=== PATIENT | female | born 1955 | race Caucasian/White ===

== ENCOUNTER 2019-01-08 17:53 | Observation (INO) | payer OTHER ==
[~2019-01-08] VITALS: Ht 167.6 cm; Wt 124.3 kg
[2019-01-08 18:37] LABS: BILIRUBIN,URINE NEGATIVE (NEGATIVE); CLARITY,URINE VERY CLOUDY; COLOR,URINE YELLOW; GLUCOSE, URINE (UA) NEGATIVE (NEGATIVE); KETONES,URINE 4+ (NEGATIVE); LEUKOCYTE ESTERASE ,URINE 1+ (NEGATIVE); NITRITE,URINE NEGATIVE (NEGATIVE); PH,URINE 5 (5-9); PROTEIN,URINE 2+ (NEGATIVE); UROBILINOGEN,URINE NORMAL (NORMAL)
[2019-01-08 18:49] LABS: BACTERIA,URINE MODERATE /HPF
[2019-01-08 18:50] LABS: BASOPHILS % (AUTO) 0 % (0-10); EOSINOPHILS % (AUTO) 0 % (0-10); HEMATOCRIT 45 % (35-52); HEMOGLOBIN 15.2 G/DL (11.5-16.0); LYMPHOCYTES # (AUTO) 1.6 X 10^3 (1.0-4.0); LYMPHOCYTES % (AUTO) 9 % (12-44); MEAN CORPUSCULAR HEMOGLOBIN 30 PG (25-34); MEAN CORPUSCULAR HGB CONC 34 G/DL (32-36); MEAN CORPUSCULAR VOLUME 87 FL (80-99); MEAN PLATELET VOLUME 10.2 FL (7.4-10.4); MONOCYTES # (AUTO) 1.2 X 10^3 (0.0-1.0); MONOCYTES % (AUTO) 7 % (0-12); NEUTROPHILS # (AUTO) 14.5 X 10^3 (1.8-7.8); NEUTROPHILS % (AUTO) 84 % (42-75); PLATELET COUNT 259 10^3/uL (130-400); RED CELL DISTRIBUTION WIDTH 14.6 % (10.0-14.5); WHITE BLOOD COUNT 17.4 10^3/uL (4.3-11.0)
--- NOTE | 2019-01-08 19:02 | NUR ---
report from elin motley.
[2019-01-08 19:09] LABS: BAND NEUTROPHILS 0 %; BASOPHILS % (MANUAL) 0 %; EOSINOPHILS % (MANUAL) 0 %; LYMPHOCYTES % (MANUAL) 11 %; MONOCYTES % (MANUAL) 7 %; NEUTROPHILS % (MANUAL) 82 %; RBC MORPH NORMAL
[2019-01-08 19:12] LABS: ALANINE AMINOTRANSFERASE 19 U/L (0-55); ALBUMIN 4.6 GM/DL (3.2-4.5); ALKALINE PHOSPHATASE 84 U/L (40-136); AMYLASE 42 U/L (25-125); BUN/CREATININE RATIO 14; CALCIUM 10.2 MG/DL (8.5-10.1); CARBON DIOXIDE 24 MMOL/L (21-32); CHLORIDE 100 MMOL/L (98-107); CREATININE SERUM 0.78 MG/DL (0.60-1.30); GFR ESTIMATED > 60; GLUCOSE 130 MG/DL (70-105); LIPASE 48 U/L (8-78); POTASSIUM 3.5 MMOL/L (3.6-5.0); SODIUM 137 MMOL/L (135-145); TOTAL PROTEIN 8.4 GM/DL (6.4-8.2)
[2019-01-08] MEDS ORDERED: fentaNYL INJECTION 100 MCG/2 ML AMP IVP ONE ×2 (19:15→21:15)
[2019-01-08] MEDS ORDERED: NS IV 1000 ML 1,000 ML IV SCH (19:15)
--- NOTE | 2019-01-08 19:26 | NUR ---
pt alert gcs 15 and here with " ". pt c/o abd pain rating 9. denies n/v/d. denies dyspnea and no acute sighnsof dypnea noted. tele shows sr 96. pt gowned.
--- NOTE | 2019-01-08 19:26 | NUR ---
pt instructed npo.
[2019-01-08 19:27] VITALS: BP 160/89
--- NOTE | 2019-01-08 20:02 | Diagnostic Imaging Report ---
PROCEDURE: CT abdomen and pelvis without contrast. TECHNIQUE: Multiple contiguous axial images were obtained through the abdomen and pelvis without the use of intravenous contrast. Auto Exposure Controls were utilized during the CT exam to meet ALARA standards for radiation dose reduction. INDICATION: Right lower quadrant pain. FINDINGS: The lung bases are clear. Liver appears normal. Gallbladder and bile ducts are normal. The pancreas and spleen are normal. The adrenal glands are normal. The kidneys show a stone in the right renal pelvis measuring 15 mm with moderate hydronephrosis of the right kidney. There are a few small calcifications in the lower pole calyx of the right kidney. The right ureter is not dilated. The bladder is nondistended. The appendix is dilated measuring 1.5 cm. There is an appendicolith present. There is surrounding mesenteric edema. There is no evidence of free fluid or abscess. There is no free air. There is very little stool in the colon. There is diverticulosis of the sigmoid colon without diverticulitis. Stomach and small bowel are not distended. No bony lesions are seen. Advanced degenerative changes noted of the lower lumbosacral spine. IMPRESSION: 1. Findings are consistent with acute appendicitis with appendicolith and distended appendix with periappendiceal edema. No evidence of abscess or free air. 2. There is moderate hydronephrosis of the right kidney with a 15 mm stone in the UPJ. Dictated by: Dictated on workstation # [id number]
--- NOTE | 2019-01-08 20:20 | ED Abdominal Pain ---
General Chief Complaint: Abdominal/GI Problems Stated Complaint: ABD CRAMPING Nursing Triage Note: PT AMB TO TRIAGE WITH COMPLAINT OF RLQ ABD PAIN. STATE STARTED YESTERDAY WITH GAS PAINS AND PROGRESSED INTO PAIN. STATES SHE HAS HAD TROUBLE HAVING A BOWEL MOVEMENT Sepsis Screen: No Definite Risk Source of Information: Patient Exam Limitations: No Limitations History of Present Illness Date Seen by Provider: Jan 08, 2019 Time Seen by Provider: 18:37 Initial Comments 63 year old female who presents to the emergency room with complains of periu mbilical abdominal pain that radiates to her right lower quadrant that started yesterday evening. She denies fevers, nausea, vomiting, diarrhea, trouble urinating. Reports mild constipation. Timing/Duration: 12-24 Hours Severity/Quality: Sharp Location: Periumbilical Radiation: RLQ Activities at Onset: None Associated Symptoms: Denies Symptoms Allergies and Home Medications Allergies Coded Allergies: No Known Drug Allergies (Unverified , 01/08/19) Home Medications No Active Prescriptions or Reported Meds Patient Home Medication List Home Medication List Reviewed: Yes Review of Systems Review of Systems Constitutional: see HPI; No chills, No fever Gastrointestinal: See HPI, Abdominal Pain, Constipated; Denies Diarrhea, Denies Nausea, Denies Vomiting Genitourinary: See HPI; Denies Burning, Denies Discharge, Denies Frequency, Denies Pain, Denies Urgency All Other Systems Reviewed Negative Unless Noted: Yes Past Bqwleqd-Slmjoq-Lfpqta Hx Past Med/Social Hx: Reviewed Nursing Past Med/Soc Hx Patient Social History Alcohol Use: Occasionally Uses Recreational Drug Use: No Smoking Status: Never a Smoker Recent Foreign Travel: No Contact w/Someone Who Travel: No Recent Infectious Disease Expo: No Recent Hopitalizations: No Immunizations Up To Date Tetanus Booster (TDap): Unknown PED Vaccines UTD: Yes Seasonal Allergies Seasonal Allergies: No Past Medical History Surgeries: Yes (BILATERAL MASECTOMY, CARPAL TUNNEL, LEFT WRIST) Tonsillectomy Respiratory: No Cardiac: No 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 oz. 126.278348ub; BMI Method:Stated General Appearance: WD/WN, no apparent distress Respiratory: chest non-tender, lungs clear, normal breath sounds, no respiratory distress, no accessory muscle use Cardiovascular: normal peripheral pulses, regular rate, rhythm, no edema, no gallop, no JVD, no murmur Gastrointestinal: normal bowel sounds, soft, no organomegaly, no pulsatile mass, tenderness (right lower quadrant) Extremities: normal capillary refill Neurologic/Psychiatric: alert, normal mood/affect, oriented x 3 Skin: normal color, warm/dry Progress/Results/Core Measures Results/Orders Lab Results Laboratory Tests Test 01/08/19 18:27 01/08/19 18:44 Range/Units Urine Color YELLOW Urine Clarity VERY CLOUDY H Urine pH 5 5-9 Urine Specific [place] 1.020 1.016-1.022 Urine Protein 2+ H NEGATIVE Urine Glucose (UA) NEGATIVE NEGATIVE Urine Ketones 4+ H NEGATIVE Urine Nitrite NEGATIVE NEGATIVE Urine Bilirubin NEGATIVE NEGATIVE Urine Urobilinogen NORMAL NORMAL MG/DL Urine Leukocyte Esterase 1+ H NEGATIVE Urine RBC (Auto) 3+ H NEGATIVE Urine RBC 2-5 H /HPF Urine WBC 10-25 H /HPF Urine Squamous Epithelial Cells 10-25 H /HPF Urine Crystals NONE /LPF Urine Bacteria MODERATE H /HPF Urine Casts NONE /LPF Urine Mucus MODERATE H /LPF Urine Culture Indicated YES White Blood Count 17.4 H 4.3-11.0 10^3/uL Red Blood Count 5.16 4.35-5.85 10^6/uL Hemoglobin 15.2 11.5-16.0 G/DL Hematocrit 45 35-52 % Mean Corpuscular Volume 87 80-99 FL Mean Corpuscular Hemoglobin 30 25-34 PG Mean Corpuscular Hemoglobin Concent 34 32-36 G/DL Red Cell Distribution Width 14.6 H 10.0-14.5 % Platelet Count 259 130-400 10^3/uL Mean Platelet Volume 10.2 7.4-10.4 FL Neutrophils (%) (Auto) 84 H 42-75 % Lymphocytes (%) (Auto) 9 L 12-44 % Monocytes (%) (Auto) 7 0-12 % Eosinophils (%) (Auto) 0 0-10 % Basophils (%) (Auto) 0 0-10 % Neutrophils # (Auto) 14.5 H 1.8-7.8 X 10^3 Lymphocytes # (Auto) 1.6 1.0-4.0 X 10^3 Monocytes # (Auto) 1.2 H 0.0-1.0 X 10^3 Eosinophils # (Auto) 0.0 0.0-0.3 10^3/uL Basophils # (Auto) 0.0 0.0-0.1 10^3/uL Neutrophils % (Manual) 82 % Lymphocytes % (Manual) 11 % Monocytes % (Manual) 7 % Eosinophils % (Manual) 0 % Basophils % (Manual) 0 % Band Neutrophils 0 % Blood Morphology Comment NORMAL Sodium Level 137 135-145 MMOL/L Potassium Level 3.5 L 3.6-5.0 MMOL/L Chloride Level 100 98-107 MMOL/L Carbon Dioxide Level 24 21-32 MMOL/L Anion Gap 13 5-14 MMOL/L Blood Urea Nitrogen 11 7-18 MG/DL Creatinine 0.78 0.60-1.30 MG/DL Estimat Glomerular Filtration Rate > 60 BUN/Creatinine Ratio 14 Glucose Level 130 H 70-105 MG/DL Calcium Level 10.2 H 8.5-10.1 MG/DL Corrected Calcium 8.5-10.1 MG/DL Total Bilirubin 1.0 0.1-1.0 MG/DL Aspartate Amino Transf (AST/SGOT) 21 5-34 U/L Alanine Aminotransferase (ALT/SGPT) 19 0-55 U/L Alkaline Phosphatase 84 40-136 U/L Total Protein 8.4 H 6.4-8.2 GM/DL Albumin 4.6 H 3.2-4.5 GM/DL Amylase Level 42 25-125 U/L Lipase 48 8-78 U/L My Orders Orders - SHAUN LOYOLA Comprehensive Metabolic Panel (01/08/19 18:36) Lipase (01/08/19 18:36) Amylase (01/08/19 18:36) Ed Iv/Invasive Line Start (01/08/19 18:36) Cbc With Automated Diff (01/08/19 18:36) Manual Differential (01/08/19 18:44) Ns Iv 1000 Ml (Sodium Chloride 0.9%) (6/1/19 19:15) Fentanyl Injection (Sublimaze Injection (01/08/19 19:15) Ct Abdomen/Pelvis Wo (01/08/19 19:14) Medications Given in ED Current Medications Medications Dose Ordered Sig/Andrew Route Start Time Stop Time Status Last Admin Dose Admin Fentanyl Citrate 50 mcg ONCE ONCE IVP 01/08/19 19:15 01/08/19 19:16 DC 01/08/19 19:23 50 MCG Vital Signs/I&O 01/08/19 01/08/19 18:08 19:27 Temp 98.7 98.7 Pulse 102 100 Resp 20 16 B/P (MAP) 194/96 (128) 160/89 (112) Pulse Ox 97 97 O2 Delivery Room Air Room Air Blood Pressure Mean: 112 Progress Progress Note : Time: 20:15 Progress Note I have seen and evaluated the patient. I have informed her of her laboratory and imaging studies. The case was discussed with Dr. Villa at this time and he recommends admitting the patient and starting cippro/flagyl and plan for appendectomy tomorrow at 1030. The patient agrees with plan of care. 2027: Dr. Ceron was consulted at this time. Diagnostic Imaging Diagonstic Imaging: CT Plain Films/CT/US/NM/MRI: abdomen, pelvis Comments NAME: SHELLY SCHROEDER [employer] REC#: [id number] PHYSICIAN: SHAUN LOYOLA CC: ALEM LOYOLA ERIC D MD Page 2 of 2 RADIOLOGY REPORT [facility] [place] [place] CC: ALEM LOYOLA ERIC D MD Page 1 of 1 RADIOLOGY REPORT NAME: SHELLY SCHROEDER [employer] REC#: [id number] PT STATUS: REG ER : 1955 PHYSICIAN: SHAUN LOYOLA ADMIT DATE: 01/08/19/ER Signed Date of Exam: 01/08/19 CT ABDOMEN/PELVIS WO PROCEDURE: CT abdomen and pelvis without contrast. TECHNIQUE: Multiple contiguous axial images were obtained through the abdomen and pelvis without the use of intravenous contrast. Auto Exposure Controls were utilized during the CT exam to meet ALARA standards for radiation dose reduction. INDICATION: Right lower quadrant pain. FINDINGS: The lung bases are clear. Liver appears normal. Gallbladder and bile ducts are normal. The pancreas and spleen are normal. The adrenal glands are normal. The kidneys show a stone in the right renal pelvis measuring 15 mm with moderate hydronephrosis of the right kidney. There are a few small calcifications in the lower pole calyx of the right kidney. The right ureter is not dilated. The bladder is nondistended. The appendix is dilated measuring 1.5 cm. There is an appendicolith present. There is surrounding mesenteric edema. There is no evidence of free fluid or abscess. There is no free air. There is very little stool in the colon. There is diverticulosis of the sigmoid colon without diverticulitis. Stomach and small bowel are not distended. No bony lesions are seen. Advanced degenerative changes noted of the lower lumbosacral spine. IMPRESSION: 1. Findings are consistent with acute appendicitis with appendicolith and distended appendix with periappendiceal edema. No evidence of abscess or free air. 2. There is moderate hydronephrosis of the right kidney with a 15 mm stone in the UPJ. Dictated by: Dictated on workstation # [id number] Dict: 01/08/191953 Trans: 01/08/192003 Interpreted by: RAH BOND MD Electronically signed by: RAH BOND MD 01/08/192003 Reviewed: Reviewed by Me Departure Communication (Admissions) Time/Spoke to Admitting Phy: 20:15 Dr. Villa Time/Spoke to Consulting Phy: 20:28 Dr. Ceron Impression Primary Impression: Appendicitis Additional Impressions: Kidney stone Urinary tract infection Disposition: ADMITTED INPATIENT Condition: Stable/Unchanged Admissions Decision to Admit Reason: Admit from ER (General) Decision to Admit/Date: Jan 08, 2019 Time/Decision to Admit Time: 20:20 Departure-Patient Inst. Referrals: NO,LOCAL PHYSICIAN (PCP/Family) Primary Care Physician Scripts No Active Prescriptions or Reported Meds SHAUN LOYOLA Jan 08, 2019 20:20
[2019-01-08 20:27] VITALS: BP 167/89
--- NOTE | 2019-01-08 20:28 | NUR ---
pt remains alert gcs 15. remainsin the room. pt abd pain rating better rating 6. denies nausea and no v/d noted in er visit. dr in room talking about appy surgery tomorrow am 1030 and needs k stone surgery. no acute sighns of dyspnea noted. tele shows sr 85. bolus 3/4 completed. +
--- NOTE | 2019-01-08 20:57 | NUR ---
50 left in bolus. i will lulu off now. pt requests more pain meds. dr will order some.
--- NOTE | 2019-01-08 21:06 | NUR ---
i just called report to admit nurse matt.
--- NOTE | 2019-01-08 21:19 | NUR ---
i am taking pt to admit room now by cart. with.
[2019-01-08 21:30] VITALS: BP 172/89
--- NOTE | 2019-01-08 21:30 | NUR ---
SHELLY SCHROEDER admitted to room 406-1, with an admitting diagnosis of Appendicitis, kidney stones and UTI, on 01/08/19 from ER via WC, accompanied by ED STAFF AND .SHELLY SCHROEDER introduced to surroundings, call light, bed controls, phone, TV, temperature control, lights, meal times, smoking policy, visitor policy, side rail policy, bathrooms and showers. Patient Rights given to patient in the handbook. SHELLY SCHROEDER verbalizes understanding that [facility] is not responsible for the loss or damage to any personal effects or valuables that are kept in the patients possession during their hospitalization. pt care plan was discussed with pt SHELLY SCHROEDER verbalizes understanding of Interdisciplinary Patient Education. Patient and/or family were informed about the Rapid Response Team and its purpose.
[2019-01-08] MEDS ORDERED: ONDANSETRON 4 MG/2 ML (SDV) Z0FRAN IV PRN (23:00)
[2019-01-08] MEDS: NS IV 1000 ML 1,000 ML IV SCH (23:17)
[2019-01-08] MEDS: fentaNYL INJECTION 100 MCG/2 ML AMP IV PRN (23:18)
[2019-01-08 23:49] VITALS: BP 162/75
--- NOTE | 2019-01-08 23:57 | Progress Note-Pre Operative ---
Pre-Operative Progress Note H&P Reviewed The H&P was reviewed, patient examined and no changes noted. Date Seen by Provider: Jan 08, 2019 Time Seen by Provider: 11:30 Date H&P Reviewed: Jan 08, 2019 Time H&P Reviewed: 11:30 Pre-Operative Diagnosis: acute appendicitis POLLO JAMES MD Jan 08, 2019 23:57
[2019-01-09] VITALS (11 sets, daily range): BP systolic 119–151; BP diastolic 58–99
--- NOTE | 2019-01-09 01:00 | HISTORY AND PHYSICAL ---
DATE OF SERVICE: HISTORY OF PRESENT ILLNESS: The patient is a 63-year-old female who presented to the Emergency Department with a 1-day history of right lower quadrant abdominal pain. She initially thought that this was related to gas pain; however, over time persisted and worsened and became more localized. She does not report any fever nor chills as well as no nausea, no vomiting. A CT scan was performed, which did show an appendicolith as well as inflammation of the appendix consistent with an acute appendicitis. There was also right nephrolithiasis identified at the ureteropelvic junction with moderate hydronephrosis. She also does have a urinary tract infection. PAST MEDICAL HISTORY: Diabetes. PAST SURGICAL HISTORY: Bilateral mastectomy, hysterectomy, left carpal tunnel release. ALLERGIES: No known drug allergies. MEDICATIONS: None. SOCIAL HISTORY: Negative smoke, social alcohol. FAMILY HISTORY: Noncontributory. VITAL SIGNS: Temperature 98.7, blood pressure 194/96, pulse 102, respirations 20, pulse ox 97% on room air. REVIEW OF SYSTEMS: This is a well-nourished female, currently in no acute distress. She is not experiencing any shortness of breath or difficulty breathing. No chest pain, palpitations, diaphoresis. Intermittent episodes of nausea, no vomiting. Pain in the right lower abdominal quadrant, which was more generalized; however, became more localized towards the right lower abdominal quadrant at McBurney's point. No diarrhea, constipation, no red blood per rectum, no dark tarry stools. No fever, chills, no recent inadvertent weight loss. All other review of systems negative. PHYSICAL EXAMINATION: CHEST: Clear. Good breath sounds bilaterally. HEART: Regular, no murmurs. HEENT: No scleral icterus. NECK: No cervical lymphadenopathy. EXTREMITIES: No lower extremity edema. Negative Guy sign. ABDOMEN: Soft, nondistended. There is pain in the right lower abdominal quadrant at McBurney's point with voluntary guarding, no rebound. SKIN: Warm, dry. LABORATORY DATA: WBC 17.4, hemoglobin 15.2, hematocrit 45, platelets 259. Urinalysis, 1+ leukocyte esterase, moderate bacteria. ASSESSMENT AND PLAN: A 63-year-old female with acute appendicitis as well as a right nephrolithiasis and moderate hydronephrosis. We will admit her start her on IV hydration due to mild dehydration. We will also start her on antibiotics. We will also proceed with a laparoscopic appendectomy. Urology will also be consulted for the nephrolithiasis as well as hydronephrosis. We will also treat her urinary tract infection with antibiotics. Job ID: [id number] DocumentID: [id number] Dictated Date: 01/09/2019 00:07:23 Clinical Statistics Manager Date: 01/09/2019 00:59:37 Dictated By: POLLO JAMES MD MTDD
[2019-01-09] MEDS: fentaNYL INJECTION 100 MCG/2 ML AMP IV PRN ×7 (02:03→23:07)
[2019-01-09 04:54] LABS: BASOPHILS % (AUTO) 0 % (0-10); EOSINOPHILS % (AUTO) 0 % (0-10); HEMATOCRIT 40 % (35-52); HEMOGLOBIN 13.4 G/DL (11.5-16.0); LYMPHOCYTES # (AUTO) 1.2 X 10^3 (1.0-4.0); LYMPHOCYTES % (AUTO) 8 % (12-44); MEAN CORPUSCULAR HEMOGLOBIN 29 PG (25-34); MEAN CORPUSCULAR HGB CONC 34 G/DL (32-36); MEAN CORPUSCULAR VOLUME 87 FL (80-99); MEAN PLATELET VOLUME 10.5 FL (7.4-10.4); MONOCYTES # (AUTO) 1.2 X 10^3 (0.0-1.0); MONOCYTES % (AUTO) 8 % (0-12); NEUTROPHILS # (AUTO) 11.9 X 10^3 (1.8-7.8); NEUTROPHILS % (AUTO) 83 % (42-75); PLATELET COUNT 211 10^3/uL (130-400); RED CELL DISTRIBUTION WIDTH 14.7 % (10.0-14.5); WHITE BLOOD COUNT 14.3 10^3/uL (4.3-11.0)
[2019-01-09 05:15] LABS: ALANINE AMINOTRANSFERASE 13 U/L (0-55); ALBUMIN 3.8 GM/DL (3.2-4.5); ALKALINE PHOSPHATASE 68 U/L (40-136); BUN/CREATININE RATIO 14; CALCIUM 8.8 MG/DL (8.5-10.1); CARBON DIOXIDE 22 MMOL/L (21-32); CHLORIDE 103 MMOL/L (98-107); CREATININE SERUM 0.64 MG/DL (0.60-1.30); GFR ESTIMATED > 60; GLUCOSE 135 MG/DL (70-105); POTASSIUM 3.3 MMOL/L (3.6-5.0); SODIUM 137 MMOL/L (135-145); TOTAL PROTEIN 6.8 GM/DL (6.4-8.2)
[2019-01-09] MEDS: metroNIDAZOLE 500 MG/100 ML IVPB (PRE-MIX) IV SCH ×3 (05:22→21:45)
[2019-01-09] MEDS: CIPROFLOXACIN 400 MG/D5W 200 ML (PRE-MIX) IV SCH ×2 (08:40→19:54)
--- NOTE | 2019-01-09 09:25 | Diagnostic Imaging Report ---
Examination: AP supine abdomen Indication: Right ureteropelvic junction stone. Comparison: CT abdomen and pelvis performed on 01/08/2019. Findings: Nonobstructive bowel gas pattern. Scattered gas and stool is noted in the colon. No unusual stool burden. No evidence of pneumoperitoneum on this supine study. A 1.1 cm ovoid calcification is demonstrated in the expected region of the right collecting system, corresponding to findings on CT scan. No other abnormal abdominal calcifications are demonstrated. Surgical clips are demonstrated in the left pelvis. No evidence of organomegaly. Visualized lung bases are clear. Impression: Nonobstructive bowel gas pattern. Calcification in the region of the right renal pelvis, compatible with findings on CT scan of the right UPJ stone. Dictated by: Dictated on workstation # [id number]
[2019-01-09] MEDS ORDERED: BUP/EPI 0.5% 1:200,000 (SENSORCAINE) 30 ML VIAL ONE (10:02)
[2019-01-09] MEDS ORDERED: fentaNYL INJECTION 100 MCG/2 ML AMP ONE (10:04)
[2019-01-09] MEDS ORDERED: MIDAZOLAM 2 MG/2 ML (VERSED) VIAL ONE (10:05)
[2019-01-09] MEDS: LACTATED RINGERS 1,000 ML IV PRN ×2 (10:15→12:35)
--- NOTE | 2019-01-09 10:39 | CONSULTATION REPORT ---
DATE OF SERVICE: 01/09/2019 ATTENDING PHYSICIAN: Dr. Villa. SUMMARY: After reviewing the patient's record, the x-ray, interviewing her and examining her, this is a 63-year-old white lady who recently moved from [facility] about three years ago to [place], presented to the emergency room and was found to have acute appendicitis, but the CT also revealed a 1.5 cm stone in the right UPJ causing moderate hydronephrosis and few stones in the kidney as well. She has not had much flank pain, but she did have one time an episode of gross hematuria, which subsided spontaneously and never had a workup for it. REVIEW OF SYSTEMS: Related to the appendix. ALLERGIES: She has no known drug allergies. SOCIAL HISTORY: She is . No children. No smoking, no alcohol, no drugs. FAMILY HISTORY: Question father stones. PAST MEDICAL HISTORY: Breast cancer. She has been cleared for since 2004. PAST SURGICAL HISTORY: Surgery case, bilateral mastectomy followed by chemo, total abdominal hysterectomy with bilateral salpingo-oophorectomy, bilateral carpal tunnel release and an open reduction internal fixation with plate and screws for a left wrist fracture. PHYSICAL EXAMINATION: VITAL SIGNS: Per chart. GENERAL: Obese, in no acute distress. HEAD: Normocephalic. ENT: Unremarkable. NECK: Supple. No bruits. CHEST: Clear, nontender. HEART: Regular rate and rhythm. No murmur. ABDOMEN: Soft. No CVA tenderness. There is tenderness in the right lower quadrant at McBurney point. EXTREMITIES: Lower extremities, no edema or cyanosis. NEUROLOGIC: Grossly intact and oriented x3. LABORATORY DATA: Urinalysis shows pyuria and bacteriuria. White count is 17,000. IMPRESSION: 1. Acute appendicitis. 2. Right ureteropelvic junction stone with moderate hydronephrosis. 3. Right renal stones. PLAN: 1. Proceed with the appendectomy as planned. 2. Continue treating the urinary tract infection. 3. Whether the patient goes home today after surgery or tomorrow morning, we will see her tomorrow in my office at 1 p.m. We will schedule her for an ESWL on Thursday when the patient is going to be here. The plan and the procedure was fully explained to her and her with expectation, indication, risk and complications and stressing on the possible need for more than one ESWL. She was also offered to go to for the procedure or to have a percutaneous nephrolithotomy compared to the procedure here and give her pros and cons. She elected to go with ESWL on Thursday. Thank you for letting me participate in the care of this patient. Job ID: [id number] DocumentID: [id number] Dictated Date: 01/09/2019 09:10:21 Magician Helper Date: 01/09/2019 10:32:51 Dictated By: MARIBELL SEPULVEDA MD
[2019-01-09] MEDS ORDERED: SUCCINYLCHOLINE INJ 100 MG/5 ML SYR ONE (11:43)
[2019-01-09] MEDS ORDERED: proPOfol 200 MG/20 ML (DIPRIVAN) VIAL IV ONE (11:43)
[2019-01-09] MEDS ORDERED: LIDOCAINE PF 2% 5 ML (XYLOCAINE) VIAL ONE (11:43)
[2019-01-09] MEDS ORDERED: SEVOFLURANE (ULTANE) 15 ML INHAL SOLN ONE ×6 (11:43→13:13)
[2019-01-09] MEDS ORDERED: ROCURONIUM 10 MG/ML 5 ML SYRINGE IV ONE (11:43)
[2019-01-09] MEDS ORDERED: KETOROLAC 30 MG/ML VIAL ONE (11:58)
[2019-01-09] MEDS ORDERED: morphine INJ 10 MG/ML 1ML (SYR OR VIAL) ONE (11:58)
[2019-01-09] MEDS ORDERED: LACTATED RINGERS 1,000 ML IV PRN (12:40)
--- NOTE | 2019-01-09 13:18 | Progress Note-Post Operative ---
Post-Operative Progess Note Surgeon (s)/Fur Designer (s) Surgeon POLLO JAMES MD Fur Designer: abdon rome INSURANCE ACCOUNT SPECIALIST Pre-Operative Diagnosis acute appendicitis Post-Operative Diagnosis same, umbilical hernia Procedure & Operative Findings Date of Procedure 01/09/19 Procedure Performed/Findings laparoscopic appendectomy and umbilical hernia repair. Anesthesia Type GET Estimated Blood Loss Estimated blood loss (mL): minimal Specimens/Packing Specimens Removed appendix POLLO JAMES MD Jan 09, 2019 13:18
[2019-01-09] MEDS ORDERED: HYDR-34 PO (13:19)
--- NOTE | 2019-01-09 13:20 | Discharge Inst-Surgical ---
D/C Lap Instructions-ERIKA New, Converted, or Re-Newed RX: RX on Chart Follow Up Appt in 2 weeks Activity as tolerated No driving for 24 hours No [address] while on pain medications Incentive Spirometry use every 2 hours while awake Regular Diet Symptoms to Report: Fever over 101 degree F, Nausea/Vomiting Infection Signs and Symptoms to report: Increased redness, Foul odor of wound, Increased drainage Bathing instructions: May shower Operative Area Clean/Dry; Keep incision clean/dry If any problems/questions: Contact your physician or go to Emergency Room POLLO JAMES MD Jan 09, 2019 13:20
[2019-01-09] MEDS ORDERED: fentaNYL INJECTION 100 MCG/2 ML AMP IVP ONE (13:30)
[2019-01-09] MEDS ORDERED: morphine INJ 10 MG/ML 1ML (SYR OR VIAL) IVP ONE (13:30)
[2019-01-09] MEDS ORDERED: ONDANSETRON 4 MG/2 ML (SDV) Z0FRAN IVP PRN (13:30)
[2019-01-09] MEDS ORDERED: MEPERIDINE (DEMEROL) INJ 50 MG/ML IVP ONE (13:30)
[2019-01-09] MEDS: NS IV 1000 ML 1,000 ML IV SCH ×2 (23:53→23:54)
[2019-01-10 00:23] VITALS: BP 118/59
--- NOTE | 2019-01-10 00:39 | OPERATIVE REPORT ---
DATE OF SERVICE: 01/09/2019 PREOPERATIVE DIAGNOSIS: Acute appendicitis. POSTOPERATIVE DIAGNOSES: Acute appendicitis with no perforation, incarcerated umbilical hernia with omentum within the hernia sac. PROCEDURE: Laparoscopic appendectomy and repair of incarcerated umbilical hernia laparoscopically primarily. SURGEON: Pollo James MD RESEARCH ASSOCIATE QUALITY CONTROL QC: Ricky Red APRN. ANESTHESIA: General endotracheal. ESTIMATED BLOOD LOSS: Minimal. FINDINGS: As above in the postop. DISPOSITION: The patient tolerated the procedure well. INDICATIONS: The patient is a 63-year-old female who presented with more generalized abdominal pain, which became more localized in the right lower abdominal quadrant yesterday. She also reports some mild nausea; however, no vomiting. A CT scan was performed, which did show an appendicolith as well as edema of the appendix consistent with acute appendicitis. DESCRIPTION OF PROCEDURE: The patient was brought to the operating room, laid supine on the table. After adequate IV pain and sedative medications and general endotracheal intubation, the abdomen was prepped and draped in standard surgical fashion. A 0.5% Marcaine with epinephrine was used to anesthetize the overlying skin in the left upper abdominal quadrant and a transverse skin incision made using a 15 blade. An 0 silk suture was applied to the medial aspect of the incision for retraction and a Veress needle inserted with a low opening pressure of 0 mmHg. The abdomen was then insufflated to 15 mmHg pressure. The Veress needle removed and a 5 mm Xcel trocar placed followed by a 5 mm 45 degree angle laparoscope visualizing the peritoneal cavity. A 4-quadrant abdominal exploration was performed. There was an incarcerated umbilical hernia with omentum within the hernia sac. There were also pelvic adhesions from her previous hysterectomy. Upon further inspection, there was a retrocecal appendix, which was inflamed; however, no perforation. A 5 mm suprapubic port was placed under direct visualization after the skin and peritoneal lining were anesthetized using 0.5% Marcaine with epinephrine and a transverse skin incision made using 15 blade. The omentum was then dissected out the hernia sac with blunt dissection using a grasper. Through the hernia opening, a 10 mm port was placed. The patient was then placed in Trendelenburg position as well as plane right side up, left side down. The terminal ileum as well as the cecum were identified and retracted anteriorly. The appendix was retrocecal. The mesenteric and omental adhesions were then taken down using blunt dissection. The appendix was then retracted anteriorly and then adherent tissue was taken down using blunt dissection as well as electrocautery on the hook instrument. Once the appendix was dissected out, a window was created between the mesoappendix and the cecum using a [place] dissector. The appendix was then stapled and transected at the cecal base using a LEATHA 45 mm stapler with a 2.5 mm thickness load. The mesoappendix was then stapled and transected with the same stapler with a 2.0 mm thickness reload. The appendix was removed in two different parts using an EndoCatch bag. The area was then copiously irrigated and suctioned out. We then proceeded with repair of the umbilical hernia. The hernia sac was dissected out using electrocautery on the hook instrument. Using a Martin-Kaci device and a series of interrupted 3-0 Prolene sutures, a line of sutures were placed transversely closing the peritoneal lining as well as the fascia. Good hemostasis was observed. The abdomen was desufflated and remaining ports removed. All skin incisions were closed using 4-0 Monocryl running subcuticular sutures. Wounds were then cleaned and covered with Dermabond. The patient tolerated the procedure well. We will start IV normal pain medication as well as a clear liquid diet. Once she is tolerating clears, has good pain control with oral pain medications, and is ambulating well, we will discharge her home. We will have followup in the office in approximately two weeks and she will be instructed to do no heavy lifting or exertion for the next two weeks. Job ID: [id number] DocumentID: [id number] Dictated Date: 01/09/2019 13:34:12 Dermatology Teacher Date: 01/10/2019 00:38:42 Dictated By: POLLO JAMES MD
[2019-01-10] MEDS: fentaNYL INJECTION 100 MCG/2 ML AMP IV PRN ×3 (02:47→08:08)
[2019-01-10 04:40] VITALS: BP 111/69
[2019-01-10] MEDS: metroNIDAZOLE 500 MG/100 ML IVPB (PRE-MIX) IV SCH (05:36)
[2019-01-10 08:00] VITALS: BP 117/67
[2019-01-10] MEDS: CIPROFLOXACIN 400 MG/D5W 200 ML (PRE-MIX) IV SCH (08:08)
--- NOTE | 2019-01-10 09:18 | NUR ---
PATIENT VERIFIED SHE WAS NOT TAKING ANY MEDICATION PRESCRIPTION OR OTC PRIOR TO ADMISSION.
--- NOTE | 2019-01-10 10:47 | Anesthesia-General Post-Op ---
General Patient Condition Mental Status/LOC: Same as Preop Cardiovascular: Satisfactory Nausea/Vomiting: Absent Respiratory: Satisfactory Pain: Controlled Complications: Absent Post Op Complications Complications None Follow Up Care/Instructions Patient Instructions None needed. Anesthesia/Patient Condition Patient Condition Patient is doing well, no complaints, stable vital signs, no apparent adverse anesthesia problems. No complications reported per nursing. TORITO LOPEZ CRNA Jan 10, 2019 10:47
[2019-01-10 11:42] VITALS: BP 117/67
[2019-01-10] MEDS ORDERED: SULF1TAB35 PO (15:21)
[2019-01-11] MEDS ORDERED: TAMS0.4C98 PO (09:49)
== END 2019-01-10 11:00 | disposition home or self-care (01) ==
LOC: ER 17:55 → 4TH 20:24
PROVIDERS: ADMIT Surgery; ATTEND Surgery
DX: K35.80 Unspecified acute appendicitis (principal); K42.0 Umbilical hernia with obstruction, without gangrene; N13.6 Pyonephrosis; E86.0 Dehydration; N20.0 Calculus of kidney; E11.9 Type 2 diabetes mellitus without complications; Z85.3 Personal history of malignant neoplasm of breast; Z90.13 Acquired absence of bilateral breasts and nipples
CPT/HCPCS: 36415; 74018; 74176; 80053; 81000; 82150; 83690; 85007; 85025; 85027; 87081; 87088; 94664; 94760; 96374; 96376

== ENCOUNTER 2019-01-10 11:17 | Outpatient (CLI) | payer OTHER ==
[~2019-01-10] VITALS: Ht 167.6 cm; Wt 124.3 kg
[~2019-01-10 11:17] MED LIST: HYDR-34 PO
[2019-01-10] MEDS ORDERED: SULF1TAB35 PO (15:21)
[2019-01-11] MEDS ORDERED: TAMS0.4C98 PO (09:49)
== END 2019-01-10 15:33 | disposition home or self-care (01) ==
LOC: PREOP 11:17
PROVIDERS: ATTEND Urology
DX: Z01.818 Encounter for other preprocedural examination (principal)

== ENCOUNTER 2019-01-11 06:47 | Day surgery (SDC) | payer OTHER ==
[2019-01-11] VITALS (9 sets, daily range): BP systolic 134–166; BP diastolic 73–97
[~2019-01-11] VITALS: Ht 167.6 cm; Wt 124.3 kg
[~2019-01-11 06:47] MED LIST changes: +SULF1TAB35 PO
[2019-01-11] MEDS ORDERED: LACTATED RINGERS 1,000 ML IV PRN (07:51)
[2019-01-11] MEDS ORDERED: CATHETER FLUSH 10 ML SYR IV PRN (08:00)
[2019-01-11] MEDS ORDERED: cefTRIAXone FOR IV USE 1,000 MG in WATER (STERILE) FOR INJECTION 10 ML IV ONE (08:00)
--- NOTE | 2019-01-11 08:07 | Progress Note-Pre Operative ---
Pre-Operative Progress Note H&P Reviewed The H&P was reviewed, patient examined and no changes noted. Date Seen by Provider: Jan 11, 2019 Time Seen by Provider: 08:07 Date H&P Reviewed: Jan 11, 2019 Time H&P Reviewed: 08:07 Pre-Operative Diagnosis: RT RENAL STONE MARIBELL SEPULVEDA MD Jan 11, 2019 08:07
[2019-01-11] MEDS ORDERED: MIDAZOLAM 2 MG/2 ML (VERSED) VIAL ONE (08:15)
--- NOTE | 2019-01-11 08:15 | Progress Note-Post Operative ---
Post-Operative Progess Note Surgeon (s)/Rn Or Lpn (s) Surgeon MARIBELL SEPULVEDA MD Rn Or Lpn: NONE Pre-Operative Diagnosis RT RENAL STONE Post-Operative Diagnosis SAME Procedure & Operative Findings Date of Procedure 01/11/19 Procedure Performed/Findings RT ESWL Anesthesia Type GENERAL Estimated Blood Loss Estimated blood loss (mL): NONE Specimens/Packing Specimens Removed NONE Packing: NONE MARIBELL SEPULVEDA MD Jan 11, 2019 08:15
[2019-01-11] MEDS ORDERED: fentaNYL INJECTION 100 MCG/2 ML AMP ONE (08:17)
--- NOTE | 2019-01-11 08:18 | Discharge Inst-Urology ---
Discharge Inst-Urology Discharge Medications New, Converted, or Re-newed RX: RX on Chart Patient Instructions/Follow Up Plan Please make appointment to been seen in office Wednesday 01/24. KUB prior to it KUB on way home Post ESWL instructions Increase oral fluids for 48 hours and then as needed. Diet and Activity as tolerated. If questions or concerns contact your physician Or seek help at emergency department. MARIBELL SEPULVEDA MD Jan 11, 2019 08:18
--- NOTE | 2019-01-11 08:51 | Diagnostic Imaging Report ---
INDICATION: Nephrolithiasis. TECHNIQUE: 2 supine view of the abdomen 8:03 AM CORRELATION STUDY: 01/09/2019 FINDINGS: A 15 mm stone projecting over the right renal silhouette appears unchanged. A few additional punctate calcifications over the left renal silhouette. Clips within the left hemipelvis. Bowel gas pattern unremarkable with moderate severity fecal retention. IMPRESSION: 1. No appreciable change of a stone projected over the right renal silhouette with additional smaller punctate calcifications. Dictated by: Dictated on workstation # [id number]
[2019-01-11] MEDS ORDERED: FUROSEMIDE 40 MG/4 ML INJ (LASIX) ONE (09:02)
[2019-01-11] MEDS ORDERED: KETOROLAC 30 MG/ML VIAL ONE (09:02)
[2019-01-11] MEDS ORDERED: SEVOFLURANE (ULTANE) 15 ML INHAL SOLN ONE ×4 (09:02→09:03)
[2019-01-11] MEDS ORDERED: LIDOCAINE PF 2% 5 ML (XYLOCAINE) VIAL ONE (09:03)
[2019-01-11] MEDS ORDERED: ONDANSETRON 4 MG/2 ML (SDV) Z0FRAN ONE (09:03)
[2019-01-11] MEDS ORDERED: proPOfol 200 MG/20 ML (DIPRIVAN) VIAL IV ONE (09:03)
[2019-01-11] MEDS ORDERED: ONDANSETRON 4 MG/2 ML (SDV) Z0FRAN IVP PRN (09:30)
[2019-01-11] MEDS ORDERED: PROMETHAZINE INJ 25 MG/ML (PHENERGAN) AMP IVP ONE (09:30)
[2019-01-11] MEDS ORDERED: morphine INJ 10 MG/ML 1ML (SYR OR VIAL) IVP ONE (09:30)
[2019-01-11] MEDS ORDERED: TAMS0.4C98 PO (09:49)
--- NOTE | 2019-01-11 11:55 | Diagnostic Imaging Report ---
INDICATION: Post extracorporeal shockwave lithotripsy. TECHNIQUE: 2 supine view of the abdomen 10:21 AM CORRELATION STUDY: 01/11/2019 FINDINGS: The previously demonstrated approximately 15 mm stone over the right renal pelvis now appears fragmented and has changed position. There are 2 adjacent more prominent calcifications over the right L3 transverse process region. Largest at approximately 9 mm in size. Calcifications in the right hemipelvis appear unchanged. Small calcifications projecting over the left kidney, stable. Vascular clips left hemipelvis. IMPRESSION: 1. Interval fragmentation of the previously demonstrated right renal pelvis stone. These appear to be largely at the level of the proximal right ureter. Dictated by: Dictated on workstation # [id number]
--- NOTE | 2019-01-11 14:31 | Anesthesia-General Post-Op ---
General Patient Condition Mental Status/LOC: Same as Preop Cardiovascular: Satisfactory Nausea/Vomiting: Absent Respiratory: Satisfactory Pain: Controlled Complications: Absent Post Op Complications Complications None Follow Up Care/Instructions Patient Instructions None needed. Anesthesia/Patient Condition Patient Condition Patient is doing well, no complaints, stable vital signs, no apparent adverse anesthesia problems. No complications reported per nursing. D/C home per [facility] Criteria: Yes ALFRED PRESTON CRNA Jan 11, 2019 14:31
--- NOTE | 2019-01-11 17:25 | OPERATIVE REPORT ---
DATE OF SERVICE: 01/11/2019 PREOPERATIVE DIAGNOSIS: Right renal stone. POSTOPERATIVE DIAGNOSIS: Right renal stone. OPERATION PERFORMED: Right ESWL. SURGEON: MARIBELL SEPULVEDA MD ANESTHESIA: General. COMPLICATIONS: None. DESCRIPTION OF PROCEDURE: Under satisfactory general anesthesia, the patient in supine position on the ESWL table. The right renal stone was localized. Shocks were delivered at kV of 4. Total of 3000 shocks completely fragmented stone that was hard to be visualized. The patient received 30 mg of Toradol and 40 mg of Lasix at the end of the procedure. She tolerated the procedure and anesthesia well and was sent to recovery room in stable condition. Job ID: [id number] DocumentID: [id number] Dictated Date: 01/11/2019 11:26:19 Job Service Consultant Date: 01/11/2019 17:24:16 Dictated By: MARIBELL SEPULVEDA MD
== END 2019-01-11 11:00 | disposition home or self-care (01) ==
LOC: SDC 06:47
PROVIDERS: ATTEND Urology
DX: N20.0 Calculus of kidney (principal); E11.9 Type 2 diabetes mellitus without complications; E66.01 Morbid (severe) obesity due to excess calories; Z68.41 Body mass index [BMI] 40.0-44.9, adult; Z85.3 Personal history of malignant neoplasm of breast; Z90.10 Acquired absence of unspecified breast and nipple; Z92.21 Personal history of antineoplastic chemotherapy
CPT/HCPCS: 74018; 87081

== ENCOUNTER → 2019-01-24 | Outpatient (CLI) | payer OTHER ==
[~2019-01-24] MED LIST changes: +TAMS0.4C98 PO
--- NOTE | 2019-01-24 14:30 | Diagnostic Imaging Report ---
INDICATION: Right renal stone post lithotripsy. TIME OF EXAM: 12:45 p.m. Correlation is made with prior study from 01/11/2019. FINDINGS: Bowel gas pattern is unremarkable. No definite radiopaque urinary tract calculi are identified. No definite calculi along the course of the ureters is seen. Pelvic calcifications are stable. IMPRESSION: No definite radiopaque urinary tract calculi are identified. Dictated by: Dictated on workstation # [id number]
== END ==
LOC: RAD 12:29
PROVIDERS: ATTEND Urology
DX: N20.0 Calculus of kidney (principal); Z98.890 Other specified postprocedural states
CPT/HCPCS: 74018

== ENCOUNTER → 2019-04-13 | Outpatient (CLI) | payer OTHER ==
[~2019-04-13] VITALS: Ht 167.6 cm; Wt 117.0 kg
[~2019-04-13] MED LIST changes: +LISI2.5T PO
== END | disposition home or self-care (01) ==
LOC: PREOP 04-08 05:41
PROVIDERS: ATTEND Surgery
DX: Z01.818 Encounter for other preprocedural examination (principal)

== ENCOUNTER → 2019-04-15 | Day surgery (SDC) | payer OTHER ==
[~2019-04-15] VITALS: Ht 167.6 cm; Wt 117.0 kg
[2019-04-15] VITALS (11 sets, daily range): BP systolic 153–198; BP diastolic 66–121
[~2019-04-15] MED LIST changes: +ACETAMINOPHEN 325 MG TABLET PO PRN; +HYDROcodone/APAP 5 MG/325 MG (LORTAB) TAB PO PRN; +LIDOCAINE JELLY 2% 6 ML SYRINGE MM PRN; +LIDOCAINE JELLY 2% 6 ML SYRINGE ONE; +MIDAZOLAM 2 MG/2 ML (VERSED) VIAL IVP ONE; +MIDAZOLAM 2 MG/2 ML (VERSED) VIAL ONE; +NS IV 500 ML 500 ML IV PRN; +NS IV 500 ML 500 ML ONE; +ONDANSETRON 4 MG/2 ML (SDV) Z0FRAN IVP PRN; +fentaNYL INJECTION 100 MCG/2 ML AMP IVP ONE; +fentaNYL INJECTION 100 MCG/2 ML AMP ONE; +morphine INJ 10 MG/ML 1ML (SYR OR VIAL) IVP PRN
--- NOTE | 2019-04-15 11:33 | Conscious Sedation/ASA ---
Conscious Sedation Pre-Proced Time 11:30 ASA Score 2 For ASA 3 and 4: Consider anesthesia and medical clearance. Also, for patients with a history of failed moderate sedation consider anesthesia. Airway Lungs Heart ASA score ASA 1: a normal healthy patient ASA 2: a patient with a mild systemic disease (mid diabetes, controlled hypertension, obesity ASA 3: a patient with a severe systemic disease that limits activity (angina, COPD, prior Myocardial infarction) ASA 4: a patient with an incapacitating disease that is a constant threat to life (CHF, renal failure) ASA 5: a moribund patient not expected to survive 24 hrs. (ruptured aneurysm) ASA 6: a declared brain- patient whose organs are being harvested. For emergent operations, add the letter E after the classification Mallampati Classification Grade 2 Sedation Plan Analgesia, Amnesia, Plan communicated to team members, Discussed options with patient/fam, Discussed risks with patient/fam The patient is an appropriate candidate to undergo the planned procedure, sedation, and anesthesia. The patient immediately re-assessed prior to indication. POLLO JAMES MD Apr 15, 2019 11:33
--- NOTE | 2019-04-15 11:34 | Progress Note-Pre Operative ---
Pre-Operative Progress Note H&P Reviewed The H&P was reviewed, patient examined and no changes noted. Date Seen by Provider: Apr 15, 2019 Time Seen by Provider: 11:30 Date H&P Reviewed: Apr 15, 2019 Time H&P Reviewed: 11:30 Pre-Operative Diagnosis: screening o POLLO JAMES MD Apr 15, 2019 11:34
--- NOTE | 2019-04-15 11:35 | Discharge Inst-Surgical ---
D/C Lap Instructions-ERIKA Follow Up Activity as tolerated High Fiber Diet 25g or more per day Avoid Alcohol, Caffeine, Spicy [place] and Acid foods. Drink 64 fluid oz or more of fluids per day. Symptoms to Report: Fever over 101 degree F, Nausea/Vomiting If any problems/questions: Contact your physician or go to Emergency Room POLLO JAMES MD Apr 15, 2019 11:35
--- NOTE | 2019-04-15 13:36 | Progress Note-Post Operative ---
Post-Operative Progess Note Surgeon (s)/Metal Reed Tuner (s) Surgeon POLLO JAMES MD Metal Reed Tuner: none Pre-Operative Diagnosis screening colo Post-Operative Diagnosis mild chronic stage 2 ext and int hemorrhoids, mod sigmoid diverticulosis. Procedure & Operative Findings Date of Procedure 04/15/19 Procedure Performed/Findings Colonoscopy. Anesthesia Type cs Estimated Blood Loss Estimated blood loss (mL): minimal Specimens/Packing Specimens Removed none POLLO JAMES MD Apr 15, 2019 13:35
--- NOTE | 2019-04-15 15:19 | OPERATIVE REPORT ---
DATE OF SERVICE: 04/15/2019 PRIMARY CARE PHYSICIAN: Dr. Renee Whitehead. PREOPERATIVE DIAGNOSIS: Screening colonoscopy. POSTOPERATIVE DIAGNOSES: Mild chronic stage II external and internal hemorrhoids, moderate sigmoid diverticulosis. PROCEDURE PERFORMED: Colonoscopy. SURGEON: Pollo James MD. ANESTHESIA: Conscious sedation. ESTIMATED BLOOD LOSS: Minimal. FINDINGS: Mild chronic stage II external and internal hemorrhoids, moderate sigmoid diverticulosis. DISPOSITION: The patient tolerated the procedure well. INDICATIONS: The patient is a 63-year-old female, known to us. We had initially seen her in 01/2019, with generalized abdominal pain and more localized pain in the right lower abdominal quadrant. A CT scan was performed, which did show an appendicolith in the appendix and edema of the appendix consistent with acute appendicitis. She underwent an appendectomy on 01/09/2019. Her last colonoscopy was in 1996. She is in need of a followup colonoscopy. She states that she is otherwise doing well, does not report any diarrhea nor constipation as well as no red blood per rectum nor any dark tarry stools. DESCRIPTION OF PROCEDURE: The patient was brought to endoscopy suite, laid in the left lateral decubitus position. After adequate IV pain and sedative medications and conscious sedation anesthesia, a digital rectal examination was performed. Mild chronic stage II external and internal hemorrhoids were identified, which were not actively edematous nor inflamed and no bleeding. Normal sphincter tone was felt and there were no palpable masses. The endoscope was then intubated to the anus and rectum gently insufflated. The endoscope was then advanced through the valves of Kay of the rectum with no polyps or any neoplasms identified. Through the sigmoid colon, mild to moderate sigmoid diverticulosis identified. There were no mucosal inflammatory changes to indicate any active diverticulitis. The endoscope was then advanced to the remainder of the descending, transverse and ascending colon to the cecum. These segments were normal. There were no polyps or any neoplasms identified throughout the colon or rectum. The endoscope was then slowly withdrawn while taking a second look and suctioning of residual air with no additional findings. The patient tolerated the procedure well. We will recommend medical management with a high fiber diet with at least 25 grams of fiber daily as well as a significant amount of water to promote soft stools on a daily basis. She does not need another colonoscopy for another 10 years. Job ID: [id number] DocumentID: [id number] Dictated Date: 04/15/2019 13:24:51 Sales Technician Home Theater Date: 04/15/2019 15:17:50 Dictated By: POLLO JAMES MD
== END | disposition home or self-care (01) ==
LOC: ENDO 11:11
PROVIDERS: ATTEND Surgery
DX: Z12.11 Encounter for screening for malignant neoplasm of colon (principal); K64.1 Second degree hemorrhoids; K64.8 Other hemorrhoids; K57.30 Diverticulosis of large intestine without perforation or abscess without bleeding; K58.9 Irritable bowel syndrome, unspecified; C50.919 Malignant neoplasm of unspecified site of unspecified female breast; Z87.891 Personal history of nicotine dependence; Z79.899 Other long term (current) drug therapy; Z80.3 Family history of malignant neoplasm of breast; Z80.0 Family history of malignant neoplasm of digestive organs; Z82.49 Family history of ischemic heart disease and other diseases of the circulatory system; Z83.3 Family history of diabetes mellitus; Z80.42 Family history of malignant neoplasm of prostate
CPT/HCPCS: 82962

== ENCOUNTER 2019-06-22 16:50 | Inpatient (IN) | payer OTHER ==
[~2019-06-22] VITALS: Ht 167.6 cm; Wt 117.0 kg
[~2019-06-22 16:50] MED LIST changes: -ACETAMINOPHEN 325 MG TABLET PO PRN; -HYDROcodone/APAP 5 MG/325 MG (LORTAB) TAB PO PRN; -LIDOCAINE JELLY 2% 6 ML SYRINGE MM PRN; -LIDOCAINE JELLY 2% 6 ML SYRINGE ONE; -MIDAZOLAM 2 MG/2 ML (VERSED) VIAL IVP ONE; -MIDAZOLAM 2 MG/2 ML (VERSED) VIAL ONE; -NS IV 500 ML 500 ML IV PRN; -NS IV 500 ML 500 ML ONE; -ONDANSETRON 4 MG/2 ML (SDV) Z0FRAN IVP PRN; -fentaNYL INJECTION 100 MCG/2 ML AMP IVP ONE; -fentaNYL INJECTION 100 MCG/2 ML AMP ONE; -morphine INJ 10 MG/ML 1ML (SYR OR VIAL) IVP PRN
--- NOTE | 2019-06-22 17:00 | NUR ---
AND THIS NURSE STOOD THIS PATIENT AT BEDSIDE PATIENT REPORTS THAT DIZZINESS WORSE FELT LIKE SHE COULD NOT STAND ANY LONGER PLACED BACK IN BED.
[2019-06-22 17:08] LABS: BASOPHILS % (AUTO) 0 % (0-10); EOSINOPHILS # (AUTO) 0.1 10^3/uL (0.0-0.3); EOSINOPHILS % (AUTO) 1 % (0-10); HEMATOCRIT 43 % (35-52); HEMOGLOBIN 14.2 G/DL (11.5-16.0); LYMPHOCYTES # (AUTO) 1.4 X 10^3 (1.0-4.0); LYMPHOCYTES % (AUTO) 16 % (12-44); MEAN CORPUSCULAR HEMOGLOBIN 29 PG (25-34); MEAN CORPUSCULAR HGB CONC 33 G/DL (32-36); MEAN CORPUSCULAR VOLUME 88 FL (80-99); MEAN PLATELET VOLUME 9.9 FL (7.4-10.4); MONOCYTES # (AUTO) 0.6 X 10^3 (0.0-1.0); MONOCYTES % (AUTO) 6 % (0-12); NEUTROPHILS # (AUTO) 6.8 X 10^3 (1.8-7.8); NEUTROPHILS % (AUTO) 77 % (42-75); PLATELET COUNT 238 10^3/uL (130-400); RED CELL DISTRIBUTION WIDTH 14.6 % (10.0-14.5); WHITE BLOOD COUNT 8.8 10^3/uL (4.3-11.0)
--- NOTE | 2019-06-22 17:12 | NUR ---
TO CT PER CART ACCOMPIED BY [facility].
[2019-06-22 17:32] LABS: FIBRIN DEGRADATION PRODUCTS <= 0.27 UG/ML (0.00-0.49); PARTIAL THROMBOPLASTIN TIME 30 SEC (24-35); PROTHROMBIN TIME PATIENT 13.9 SEC (12.2-14.7)
--- NOTE | 2019-06-22 17:35 | Diagnostic Imaging Report ---
PROCEDURE: CT head wo r/o stroke. TECHNIQUE: Multiple contiguous axial images were obtained through the brain without the use of intravenous contrast. Auto Exposure Controls were utilized during the CT exam to meet ALARA standards for radiation dose reduction. INDICATION: Stroke alert. Left-sided weakness. Dizziness. COMPARISON: None. FINDINGS: The ventricles and cortical sulci are age-appropriate. There is no midline shift or mass-effect. No acute intracranial hemorrhage is seen. There is no CT evidence of acute territorial ischemia. No focal masses or collections are present. The calvarium is intact. The visualized paranasal sinuses are clear. IMPRESSION: No hemorrhage or focal intra-axial mass. No CT evidence of large acute territorial ischemia. Dictated by: Dictated on workstation # [id number]
--- NOTE | 2019-06-22 17:36 | NUR ---
BACK FROM CT.
[2019-06-22 17:37] LABS: ALANINE AMINOTRANSFERASE 16 U/L (0-55); ALBUMIN 4.8 GM/DL (3.2-4.5); ALKALINE PHOSPHATASE 98 U/L (40-136); BILIRUBIN,TOTAL 0.5 MG/DL (0.1-1.0); BUN/CREATININE RATIO 24; CALCIUM 9.6 MG/DL (8.5-10.1); CARBON DIOXIDE 25 MMOL/L (21-32); CHLORIDE 103 MMOL/L (98-107); CREATININE SERUM 0.72 MG/DL (0.60-1.30); GFR ESTIMATED > 60; GLUCOSE 111 MG/DL (70-105); POTASSIUM 3.5 MMOL/L (3.6-5.0); SODIUM 139 MMOL/L (135-145); TOTAL PROTEIN 8.1 GM/DL (6.4-8.2)
[2019-06-22] MEDS ORDERED: HOLD METFORMIN - RECEIVED CONTRAST 20 ML VIAL IV SCH (17:45)
[2019-06-22] MEDS ORDERED: IOHEXOL 350 MG/ML 100 ML (OMNIPAQUE 350) VIAL IV ONE (17:45)
[2019-06-22] MEDS ORDERED: NS 100 ML (IVPB) BAG IV ONE (17:45)
[2019-06-22] MEDS ORDERED: ALTEPLASE 100 MG/VIAL (ACTIVASE) IV ONE ×2 (17:50→18:30)
--- NOTE | 2019-06-22 17:56 | ED Neurological Problem ---
General Chief Complaint: Neuro-Stroke Like Symptoms Stated Complaint: POSS TIA Nursing Triage Note: arrived via ems to room 5 stroke activation was completed by Dr Guzmán. patient states at 1515 she started feeling dizzy at home and walked in to tell her she was not feeling well and started to have some difficulty walking. patient is aler and oriented at this time, speaking with all caregivers in room. Nursing Sepsis Screen: No Definite Risk Source: patient, EMS Exam Limitations: no limitations History of Present Illness Date Seen by Provider: Jun 22, 2019 Time Seen by Provider: 16:51 Initial Comments This 63-year-old woman presents to the emergency room with complaints of dizziness and numbness in her distal left upper extremity. Symptoms started abruptly at 15:30. She felt fine prior to that. She was able to walk to another room and notify her of her symptoms. He then activated EMS. EMS reports patient was able to transfer her own body weight to the EMS cot. 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 Patient was promptly evaluated on arrival and found to have weakness in the left leg which scored 2 on the NIH stroke scale. Stroke activation was paged. Prior to CT, we did attempt to ambulate the patient. She was able to stand to bear weight but bec shaneka very dizzy. She described her dizziness as both a lightheadedness and a vertigo/spinning sensation. This did not immediately fatigue and persisted even through her CT exam. Patient notes she forgot to take her blood pressure medication this morning. EMS reported fingerstick blood sugar was 134. Allergies and Home Medications Allergies Coded Allergies: No Known Drug Allergies (Unverified , 04/13/19) Home Medications Lisinopril Unknown Strength Tablet, Unknown Dose PO DAILY, (Reported) Patient Home Medication List Home Medication List Reviewed: Yes Review of Systems Review of Systems Constitutional: no symptoms reported Eyes: No Symptoms Reported Ears, Nose, Mouth, Throat: no symptoms reported Respiratory: no symptoms reported Cardiovascular: see HPI Gastrointestinal: no symptoms reported Genitourinary: no symptoms reported : No Musculoskeletal: no symptoms reported Skin: no symptoms reported Psychiatric/Neurological: See HPI Endocrine: No Symptoms Reported Hematologic/Lymphatic: No Symptoms Reported Past Ktzegse-Inndly-Wukmnf Hx Past Med/Social Hx: Reviewed Nursing Past Med/Soc Hx Patient Social History Alcohol Use: Rarely Uses Recreational Drug Use: No Former Smoker, Quit: Apr 13, 1984 2nd Hand Smoke Exposure: Yes Recent Foreign Travel: No Contact w/Someone Who Travel: No Recent Infectious Disease Expo: No Recent Hopitalizations: Yes (JANUARY 2019-) Physical Abuse: No Sexual Abuse: No Mistreated: No Fear: No Immunizations Up To Date Tetanus Booster (TDap): Unknown PED Vaccines UTD: Yes Seasonal Allergies Seasonal Allergies: Yes Past Medical History Surgeries: Yes (BILATERAL MASECTOMY, CARPAL TUNNEL, LEFT WRIST) Appendectomy, Hysterectomy, Tonsillectomy Respiratory: No Cardiac: Yes Hypertension 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 Sexually Transmitted Disease: No HIV/AIDS: No Genitourinary: Yes Kidney Stones Gastrointestinal: No Musculoskeletal: No Endocrine: Yes (diet controlled) Diabetes, Non-Insulin dep HEENT: No (GLASSES) Loss of Vision: Denies Hearing Impairment: Denies Cancer: Yes Breast, Lymphoma Did You Recieve Any Treatments: Yes What Type of Treatment Did You: Chemotherapy, Radiation, Surgical Intervention Psychosocial: Yes Depression Integumentary: No Blood Disorders: No Adverse Reaction/Blood Tranf: No (N/A) Physical Exam Vital Signs Vital Signs - First Documented 06/22/19 06/22/19 16:50 17:18 Pulse 81 Resp 16 B/P (MAP) 184/93 (123) Pulse Ox 98 O2 Delivery Room Air Capillary Refill : Less Than 3 Seconds Height, Weight, BMI Height: 5'6.00" Weight: 258lbs. 0.0oz. 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 as tested, alert, normal mood/affect, oriented x 3, motor weakness (left leg weakness) Crainal Nerves: normal hearing, normal speech, PERRL Coordination/Gait: normal finger to nose Motor/Sensory: no sensory deficit, no pronator drift, weak motor strength LLE Skin: normal color, warm/dry Stroke Onset of Symptoms Date of Onset of Symptoms: Jun 22, 2019 NIH Stroke Scale Assessment Level of Consciousness: 0=Alert (0), Level of Consciousness-Questions: 0=Answers both month/age (0), LOC Commands: 0=Performs both tasks (0), Visual Sullivan: 0=No visual loss (0), Facial Movement (Facial Paresis): 0=Normal symmetrical mnt (0), Motor Function-Arms Right: 0=No drift (0), Motor Function-Arms Left: 0=No drift (0), Motor Function-Legs Right: 0=No drift (0), Motor Function-Legs Left: 2=Some effort/gravity (2), Limb Ataxia: 0=Absent (0), Sensory: 0=Normal:no loss (0), Best Language: 0=No aphasia (0), Dysarthria: 0=Normal (0), Extinction & Inattention: 0=No abnormality (0), Total: 2 Stroke Thrombolytic Exclusion Age 18 or Over: Yes Intracranial Neoplasm/Aneurysm: No Progress/Results/Core Measures Results/Orders Lab Results Laboratory Tests Test 06/22/19 16:55 Range/Units White Blood Count 8.8 4.3-11.0 10^3/uL Red Blood Count 4.96 4.35-5.85 10^6/uL Hemoglobin 14.2 11.5-16.0 G/DL Hematocrit 43 35-52 % Mean Corpuscular Volume 88 80-99 FL Mean Corpuscular Hemoglobin 29 25-34 PG Mean Corpuscular Hemoglobin Concent 33 32-36 G/DL Red Cell Distribution Width 14.6 H 10.0-14.5 % Platelet Count 238 130-400 10^3/uL Mean Platelet Volume 9.9 7.4-10.4 FL Neutrophils (%) (Auto) 77 H 42-75 % Lymphocytes (%) (Auto) 16 12-44 % Monocytes (%) (Auto) 6 0-12 % Eosinophils (%) (Auto) 1 0-10 % Basophils (%) (Auto) 0 0-10 % Neutrophils # (Auto) 6.8 1.8-7.8 X 10^3 Lymphocytes # (Auto) 1.4 1.0-4.0 X 10^3 Monocytes # (Auto) 0.6 0.0-1.0 X 10^3 Eosinophils # (Auto) 0.1 0.0-0.3 10^3/uL Basophils # (Auto) 0.0 0.0-0.1 10^3/uL Prothrombin Time 13.9 12.2-14.7 SEC INR Comment 1.0 0.8-1.4 Activated Partial Thromboplast Time 30 24-35 SEC D-Dimer <= 0.27 0.00-0.49 UG/ML Sodium Level 139 135-145 MMOL/L Potassium Level 3.5 L 3.6-5.0 MMOL/L Chloride Level 103 98-107 MMOL/L Carbon Dioxide Level 25 21-32 MMOL/L Anion Gap 11 5-14 MMOL/L Blood Urea Nitrogen 17 7-18 MG/DL Creatinine 0.72 0.60-1.30 MG/DL Estimat Glomerular Filtration Rate > 60 BUN/Creatinine Ratio 24 Glucose Level 111 H 70-105 MG/DL Calcium Level 9.6 8.5-10.1 MG/DL Corrected Calcium 8.5-10.1 MG/DL Total Bilirubin 0.5 0.1-1.0 MG/DL Aspartate Amino Transf (AST/SGOT) 21 5-34 U/L Alanine Aminotransferase (ALT/SGPT) 16 0-55 U/L Alkaline Phosphatase 98 40-136 U/L Troponin I < 0.028 <0.028 NG/ML Total Protein 8.1 6.4-8.2 GM/DL Albumin 4.8 H 3.2-4.5 GM/DL My Orders Orders - HOLA GREENE MD Cbc With Automated Diff (06/22/19 16:57) Protime With Inr (06/22/19 16:57) Partial Thromboplastin Time (06/22/19 16:57) Comprehensive Metabolic Panel (06/22/19 16:57) Fibrin Degradation Products (06/22/19 16:57) Troponin I (06/22/19 16:57) Ua Culture If Indicated (06/22/19 16:57) Chest 1 View, Ap/Pa Only (06/22/19 16:57) Ekg Tracing (06/22/19 16:57) Nothing By Mouth (06/23/19 Breakfast) Accucheck Stat ONCE (06/22/19 16:57) Ed Iv/Invasive Line Start (06/22/19 16:57) Ed Iv/Invasive Line Start (06/22/19 16:57) Vital Signs Stroke Patient Q15M (06/22/19 16:57) Ct Head Wo-R/O Stroke (06/22/19 16:57) O2 (06/22/19 16:57) Intake & Output 06,14,22 (06/22/19 16:57) Monitor-Rhythm Ecg Trace Only (06/22/19 16:57) Dysphagia Screening Tool (06/22/19 16:57) Post Thrombolytic Adminstratio (06/22/19 16:57) Lipid Panel (06/23/19 06:00) I-Stat Bedside Testing (06/22/19 16:57) Iohexol Injection (Omnipaque 350 Mg/Ml 1 (06/22/19 17:45) Received Contrast (Hold Metformin- Contr (06/22/19 17:45) Ns (Ivpb) (Sodium Chloride 0.9% Ivpb Bag (06/22/19 17:45) Alteplase (Activase) (Activase Injection (06/22/19 17:50) Medications Given in ED Current Medications Medications Dose Ordered Sig/Andrew Route Start Time Stop Time Status Last Admin Dose Admin Iohexol 100 ml ONCE ONCE IV 06/22/19 17:45 06/22/19 17:55 DC 06/22/19 17:43 75 ML Sodium Chloride 100 ml ONCE ONCE IV 06/22/19 17:45 06/22/19 17:55 DC 06/22/19 17:44 80 ML Vital Signs/I&O 06/22/19 06/22/19 16:50 17:18 Pulse 81 72 Resp 16 18 B/P (MAP) 184/93 (123) 157/83 Pulse Ox 98 99 O2 Delivery Room Air Blood Pressure Mean: 123 POS iStat Bedside Lab Testing Sodium (Na): 141.00 Potassium (K): 3.50 Chloride (CI): 102.00 TCO2: 26.00 Glucose (Glu): 112.00 Urea Nitrogen (BUN)/Urea: 18.00 Creatinine (Crea): 0.60 Anion Gap*: 17.00 Progress Progress Note #1: Time: 18:33 Progress Note Patient's initial evaluation revealed a weak left leg. She scored 2 on the NIH stroke scale is of leg weakness. Stroke activation was paged and she was taken directly to CT. Noncontrast CT was negative. This was followed by CT angiogram which was also negative. Symptoms seemed to improve while in the radiology Department. Patient was not a good TPA candidate initially because of her low NIH score and improving symptoms. However, upon returning to the emergency department she received a second NIH score during worsening symptoms. She was now exhibiting some minor left facial weakness and she was unable to lift her arm or leg against gravity. She was now scoring an 8 on the NIH score which made her a better TPA candidate. At 17:50 I discussed the risks and benefits of TPA with patient and her . Risks discussed included up to a 6 percent possibility of a life-threatening or fatal hemorrhage. Patient knowledge risks and benefits and elected to proceed with TPA administration. TPA was promptly given around 18:00. Case was discussed with Dr. Hughes, stroke neurologist at [facility] at the time of TPA administration. She agreed with administration of TPA. Given the negative angiogram, she did not believe there was any benefit to transfer. She also did not recommend CT perfusion scan. Patient seemed to have complete resolution of symptoms after the TPA bolus. Case was discussed with Dr. Hoff who agreed to admit the patient to the ICU. The post stroke order set was used. Patient passed her dysphagia screen in the ER. Progress Note #2: Time: 18:51 Progress Note Patient is ready for transfer to the ICU. She is still able to fully move her left arm and leg against gravity. Initial ECG Impression Date: Jun 22, 2019 Initial ECG Impression Time: 17:53 Initial ECG Rate: 77 Initial ECG Rhythm: Normal Sinus Initial ECG Intervals: Normal Initial ECG Impression: Normal Comment Sinus rhythm with no ST elevation or depression. No abnormal intervals or axis deviation. Diagnostic Imaging Diagonstic Imaging: CT Plain Films/CT/US/NM/MRI: head Comments CT head viewed by me and report reviewed. See report below: NAME: SHELLY SCHROEDER REC#: [id number] PT STATUS: REG ER : 1955 PHYSICIAN: HOLA GREENE MD ADMIT DATE: 06/22/19/ER Signed Date of Exam:06/22/19 CT HEAD WO-R/O STROKE PROCEDURE: CT head wo r/o stroke. TECHNIQUE: Multiple contiguous axial images were obtained through the brain without the use of intravenous contrast. Auto Exposure Controls were utilized during the CT exam to meet ALARA standards for radiation dose reduction. INDICATION: Stroke alert. Left-sided weakness. Dizziness. COMPARISON: None. FINDINGS: The ventricles and cortical sulci are age-appropriate. There is no midline shift or mass-effect. No acute intracranial hemorrhage is seen. There is no CT evidence of acute territorial ischemia. No focal masses or collections are present. The calvarium is intact. The visualized paranasal sinuses are clear. IMPRESSION: No hemorrhage or focal intra-axial mass. No CT evidence of large acute territorial ischemia. Dictated by: Dictated on workstation # [id number] Dict: 06/22/191732 Trans: 06/22/191733 [facility] [id number] Interpreted by: FINN MAGAÑA DO Electronically signed by: FINN MAGAÑA DO 06/22/191733 Diagonstic Imaging: CT Plain Films/CT/US/NM/MRI: other (angiogram head and neck) Comments CT angiogram head and neck viewed by me and report reviewed. See report below: NAME: SHELLY SCHROEDER REC#: [id number] PT STATUS: REG ER : 1955 PHYSICIAN: AMAURY CHAPPELL APRN ADMIT DATE: 06/22/19/ER Signed Date of Exam:06/22/19 CT ANGIO HEAD/NECK PROCEDURE: CT angiography of the head and CT angiography of the neck with and without contrast. TECHNIQUE: Contiguous noncontrast images were obtained from the skull base through the vertex. After intravenous contrast administration, helical CT angiography of the neck was performed. Source data was reformatted into 3D MIP projections. Delayed post contrast acquisition was also obtained. Auto Exposure Controls were utilized during the CT exam to meet ALARA standards for radiation dose reduction. INDICATION: Left-sided weakness. Dizziness. Evaluate for stroke. Comparison: CT head performed earlier the same date. FINDINGS: CTA Neck: The visualized portions of the aortic arch demonstrate no evidence of aneurysm or dissection. There is conventional branching pattern of the great vessels of the aorta. The brachiocephalic artery is normal in course and caliber. The right and left common carotid origins are unremarkable. The origin of the left subclavian artery is patent. The common carotid arteries and internal carotid arteries demonstrate a tortuous course. There is calcified atherosclerotic plaque in the bilateral carotid bulbs and proximal internal carotid arteries without flow-limiting stenosis. No evidence of dissection in the carotid systems. The external carotid arteries are patent and unremarkable. The right vertebral artery is dominant. The origin of the right vertebral artery is seen and is unremarkable. The origin of the left vertebral artery is seen and is unremarkable. There is no focal stenosis seen within the neck. There is no dissection. The vertebral arteries are well visualized to up to the level of the basilar artery. The osseous structures of the cervical spine demonstrate grade 1 anterolisthesis of C3 on C4. No acute fracture or dislocation is present. Included views through the lung apices demonstrate no focal consolidation. CTA brain: Atherosclerotic plaque is seen in the johnson of the bilateral terminal internal carotid arteries without significant stenosis. No stenosis is seen in the bilateral anterior, middle, and posterior cerebral arteries. 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 No evidence of aneurysm the [place]. In the posterior circulation, both of the vertebral arteries demonstrate normal opacification. The vertebral arteries are codominant. Both the right and left PICA arteries are identified. The basilar artery is normal in course and caliber. The terminal branch vessels including the superior cerebellar arteries unremarkable. IMPRESSION: 1. No stenosis or aneurysm in the [place]. 2. No stenosis or dissection the bilateral carotid and vertebral arteries. Dictated by: Dictated on workstation # [id number] Dict: 06/22/191750 Trans: 06/22/191753 [facility] [id number] Interpreted by: FINN MAGAÑA DO Electronically signed by: FINN MAGAÑA DO 06/22/191753 Departure Communication (Admissions) Time/Spoke to Admitting Phy: 18:13 Dr. Hoff Impression Primary Impression: CVA (cerebral vascular accident) Qualified Codes: I63.9 - Cerebral infarction, unspecified Additional Impression: Left-sided weakness Disposition: ADMITTED INPATIENT Condition: Improved Admissions Decision to Admit Reason: Admit from ER (General) Decision to Admit/Date: Jun 22, 2019 Time/Decision to Admit Time: 17:50 Departure-Patient Inst. Referrals: LILIAM MARTINEZ MD (PCP) Primary Care Physician HOLA GREENE MD Jun 22, 2019 17:56 POS
--- NOTE | 2019-06-22 18:00 | NUR ---
BOLUS GIVEN 9ML BOLUS B/P 165 93 HR78 1802 TPA DRIP STARTED AT 81MG HR.
--- NOTE | 2019-06-22 18:00 | NUR ---
VERBAL ORDER FROM PATIENT AND TO GIVE TPA.
--- NOTE | 2019-06-22 18:06 | NUR ---
PATIENT ABLE TO MOVE L LEG
--- NOTE | 2019-06-22 18:45 | Diagnostic Imaging Report ---
INDICATION: Dizziness. Portable chest at 6:14 p.m. Heart size and pulmonary vascularity are normal. Lungs are clear. There are no effusions or pneumothoraces. IMPRESSION: Negative chest. Dictated by: Dictated on workstation # [id number]
[2019-06-22 18:46] LABS: BILIRUBIN,URINE NEGATIVE (NEGATIVE); CLARITY,URINE CLEAR; COLOR,URINE YELLOW; GLUCOSE, URINE (UA) NEGATIVE (NEGATIVE); KETONES,URINE 1+ (NEGATIVE); LEUKOCYTE ESTERASE ,URINE NEGATIVE (NEGATIVE); NITRITE,URINE NEGATIVE (NEGATIVE); PH,URINE 5.5 (5-9); PROTEIN,URINE NEGATIVE (NEGATIVE)
--- NOTE | 2019-06-22 18:50 | NUR ---
TO ICU PER CART. ACCOMPIED BY HOUSE SUP
[2019-06-22 19:00] VITALS: BP 175/89
[2019-06-22 19:08] LABS: BACTERIA,URINE TRACE /HPF
[2019-06-22] MEDS: niCARdipine 50 MG/NS 250 ML IV DRIP IV SCH ×2 (19:15)
[2019-06-22] MEDS ORDERED: MECLIZINE 25 MG (ANTIVERT) TAB PO PRN (19:15)
[2019-06-22] MEDS ORDERED: ONDANSETRON 4 MG/2 ML (SDV) Z0FRAN IV PRN (19:15)
[2019-06-22 20:00] VITALS: BP 161/83
[2019-06-22] MEDS ORDERED: FLU QUADRIvalent (5+ YOA) 2019-2020 (AFLURIA) 0.5 ML IM ONE (20:30)
--- NOTE | 2019-06-22 20:37 | NUR ---
E-ICU notified of pt c/o headache, rated 2/10.
[2019-06-22 21:00] VITALS: BP 157/83
[2019-06-22] MEDS ORDERED: ACETAMINOPHEN 325 MG TABLET PO ONE (21:30)
[2019-06-22 22:00] VITALS: BP 153/79
[2019-06-22 23:00] VITALS: BP 134/65
[2019-06-23] VITALS (23 sets, daily range): BP systolic 119–166; BP diastolic 56–91
[2019-06-23 03:50] LABS: BASOPHILS % (AUTO) 0 % (0-10); EOSINOPHILS # (AUTO) 0.2 10^3/uL (0.0-0.3); EOSINOPHILS % (AUTO) 2 % (0-10); HEMATOCRIT 40 % (35-52); HEMOGLOBIN 13.4 G/DL (11.5-16.0); LYMPHOCYTES # (AUTO) 1.9 X 10^3 (1.0-4.0); LYMPHOCYTES % (AUTO) 20 % (12-44); MEAN CORPUSCULAR HEMOGLOBIN 29 PG (25-34); MEAN CORPUSCULAR HGB CONC 34 G/DL (32-36); MEAN CORPUSCULAR VOLUME 87 FL (80-99); MEAN PLATELET VOLUME 10.4 FL (7.4-10.4); MONOCYTES # (AUTO) 0.7 X 10^3 (0.0-1.0); MONOCYTES % (AUTO) 7 % (0-12); NEUTROPHILS % (AUTO) 71 % (42-75); PLATELET COUNT 225 10^3/uL (130-400); RED CELL DISTRIBUTION WIDTH 14.5 % (10.0-14.5); WHITE BLOOD COUNT 9.8 10^3/uL (4.3-11.0)
[2019-06-23 04:14] LABS: BUN/CREATININE RATIO 19; CALCIUM 9.3 MG/DL (8.5-10.1); CARBON DIOXIDE 23 MMOL/L (21-32); CHLORIDE 107 MMOL/L (98-107); CHOLESTEROL 223 MG/DL (< 200); CREATININE SERUM 0.63 MG/DL (0.60-1.30); GFR ESTIMATED > 60; GLUCOSE 112 MG/DL (70-105); HDL CHOLESTEROL 49 MG/DL (40-60); MAGNESIUM 1.9 MG/DL (1.6-2.4); PHOSPHORUS 3.8 MG/DL (2.3-4.7); POTASSIUM 3.5 MMOL/L (3.6-5.0); SODIUM 142 MMOL/L (135-145); TRIGLYCERIDES 139 MG/DL (<150); VLDL CHOLESTEROL 28 MG/DL (5-40)
[2019-06-23] MEDS: niCARdipine 50 MG/NS 250 ML IV DRIP IV SCH ×4 (04:26→08:48)
[2019-06-23] MEDS ORDERED: MAGNESIUM 1 GM/100 ML IVPB 100 ML IV SCH (06:00)
[2019-06-23] MEDS ORDERED: POTASSIUM CL 10MEQ/50ML IVPB 50 ML IV SCH (06:00)
[2019-06-23] MEDS ORDERED: KCL 20 MEQ TAB (K-DUR) PO SCH (06:00)
[2019-06-23] MEDS: MAGNESIUM 1 GM/100 ML IVPB 100 ML IV SCH (06:19)
[2019-06-23] MEDS: KCL 20 MEQ TAB (K-DUR) PO SCH (06:19)
[2019-06-23] MEDS: POTASSIUM CL 10MEQ/50ML IVPB 50 ML IV SCH (06:19)
[2019-06-23] MEDS ORDERED: POTASSIUM CL 10MEQ/50ML IVPB 50 ML IV ONE (06:45)
--- NOTE | 2019-06-23 08:31 | Speech Therapy Progress Note ---
Therapy Progress Note ST attempted to do Bedside Dysphagia Evaluation, however patient has been placed on a regular diet. She had eaten the entire meal prior to my arrival. D/C order for LISA. OC OLEA Jun 23, 2019 08:30 POS
--- NOTE | 2019-06-23 08:32 | Diagnostic Imaging Report ---
Indication: Shortness of breath Portable chest 3:54 AM Heart size and pulmonary vascularity are normal. Lungs are clear. There are no effusions or pneumothoraces. IMPRESSION: Negative chest Dictated by: Dictated on workstation # [id number]
[2019-06-23] MEDS ORDERED: KCL 20 MEQ TAB (K-DUR) PO ONE (09:00)
[2019-06-23] MEDS ORDERED: ASCO1TAB39 PO (09:16)
[2019-06-23] MEDS ORDERED: NFBIOT1000 PO (09:16)
[2019-06-23] MEDS ORDERED: MELA3TAB PO (09:17)
--- NOTE | 2019-06-23 09:18 | NUR ---
SPOKE WITH THE PATIENT ABOUT HER MEDICATIONS. SHE STATES THE ONLY PRESCRIPTION MED SHE TAKES IS LISINOPRIL, SHE DID NOT KNOW THE DOSE BUT I WAS ABLE TO VERIFY IT WITH THE EXT MED HX. SHE TAKES HAIR SKIN AND NAILS WITH BIOTIN DAILY AND MELATONIN HS OTC.
--- NOTE | 2019-06-23 09:40 | Physical Therapy Evaluation ---
PT Evaluation-General Medical Diagnosis Admission Date Jun 22, 2019 at 18:18 Medical Diagnosis: CVA, L sided weakness Onset Date: Jun 22, 2019 Therapy Diagnosis Therapy Diagnosis: weakness Height/Weight Height (Feet): 5 Height (Inches): 6.00 Weight (Pounds): 258 Weight (Ounces): 0.0 Precautions Precautions/Isolations: Fall Prevention, Standard Precautions Referral Physician: Luis Eduardo Reason for Referral: Evaluation/Treatment Medical History Pertinent Medical History: DM, HTN, Lymphoma Current History EMS secondary to dizziness and L sided UE numbness. L sided weakness in ER. Reviewed History: Yes Social History Home: Single Level Current Living Status: Spouse Entry Into Home: Stairs Without Railing PT Steps Into Home: 2 Prior Prior Level of Function SCALE: Activities may be completed with or without assistive devices. 7-Ijqyznkblp-vioqgwa completes the activity by him/herself with no assistance from a helper. 5-Set-up or Clean-up Assistance-helper sets up or cleans up; patient completes activity. [place] assists only prior to or following the activity. 4-Supervision or Touching Assistance-helper provides verbal cues and/or touching/steadying and/or contact guard assistance as patient completes activity. Assistance may be provided throughout the activity or intermittently. 3-Partial/Moderate Assistance-helper does LESS THAN HALF the effort. [place] lifts, holds or supports trunk or limbs, but provides less than half the effort. 2-Substantial/Maximal Assistance-helper does MORE THAN HALF the effort. [place] lifts or holds trunk or limbs and provides more than half the effort. 7-Sochvxqtt-hapsie does ALL the effort. Patient does none of the effort to complete the activity. Or, the assistance of 2 or more helpers is required for the patient to complete the activity. If activity was not attempted, code reason: 7-Patient Refused. 9-Not Applicable-not attempted and the patient did not perform the activity before the current illness, exacerbation or injury. 10-Not Attempted due to Environmental Limitations-(lack of equipment, weather restraints, etc.). 88-Not Attempted due to Medical Conditions or Safety Concerns. Bed Mobility: 6 Transfers (B,C,W/C): 6 Gait: 6 Stairs: 6 Indoor Mobility (Ambulation): Independent Stairs: Independent Prior Devices Use: Other-see list below Prior Device Use: cane PT Evaluation-Current Subjective Patient reports pain in her back and bottom from being in bed, would like to get out of bed and sit in chair for a while. Pain Numeric Pain Scale: 2 Location Body Site: Back (and rear) Pain Description: Ache Objective Patient Orientation: Normal For Age Problem Solving: Good ROM/Strength ROM Lower Extremities WFL Strength Lower Extremities R: grossly 4/5; L hip flexion 3/5, knee flexion/extension 4/5 Integumentary/Posture Integumentary See nursing notes Bowel Incontinence: No Bladder Incontinence: No Posture WFL Neuromuscular (Tone, Coordination, Reflexes) Grossly intact Sensory Vision: Functional Hearing: Functional Transfers Roll Left to Right (QC): 6 Lying to Sitting/Side of Bed(Q: 6 Sit to Stand (QC): 4 Gait Does the Patient Walk?: Yes Mode of Locomotion: Walk Anticipated Mode of Locomotion: Walk Distance: 2=061-70 ft Walk 10 feet (QC): 4 Walk 50 ft with 2 Turns(QC): 4 Distance: 50' Gait Assistive Device: FWW Comments/Gait Description Weakness in LLE; CGA to ambulate; lists to the left Balance Sitting Static: Normal Sitting Dynamic: Normal Standing Static: Normal Standing Dynamic: Normal Assessment/Needs Patient demonstrated independence in bed mobility to sit to EOB from supine. Demonstrated good strength in RLE but weakness in L hip flexion. Patient stood CGA and ambulated CGA 50' with FWW. Demonstrated no difficulty with ambulation but reported feeling weak in LLE. Patient returned to sitting EOB at conclusion of treatment and left with nursing. 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 Goals Group Home Goals PT Group Home Goals Time Frame: Jul 01, 2019 Sit to Lying (QC): 6 Lying-Sitting on Side/Bed(QC): 6 Sit to Stand (QC): 6 Roll Left to Right (QC): 6 Chair/Ijs-dl-Bcpss Xfer(QC): 6 Car Transfer (QC): 6 Does the Patient Walk: Yes Distance: 200' Walk 10 feet (QC): 6 Walk 10ft-Uneven Surface(QC): 6 Walk 50ft with 2 Turns (QC): 6 Walk 150 ft (QC): 6 Gait Assistive Device: FWW PT Plan Problem List Problem List: Activity Tolerance, Functional Strength, Safety, Balance, Gait, Transfer, Bed Mobility Treatment/Plan Treatment Plan: Continue Plan of Care Treatment Plan: Bed Mobility, Education, Functional Activity Catina, Functional Strength, Gait, Safety, Therapeutic Exercise, Transfers Treatment Duration: Jul 01, 2019 Frequency: 6 times per week Estimated Hrs Per Day: .25 hour per day Patient and/or Family Agrees t: Yes Time/GCodes Time In: 813 Time Out: 826 Total Billed Treatment Time: 13 Total Billed Treatment 1 visit EVL 13min JAYCEE RUSSO PT Jun 23, 2019 09:40 POS
--- NOTE | 2019-06-23 11:05 | Occupational Therapy Eval ---
OT Evaluation-General/PLF Medical Diagnosis Admission Date Jun 22, 2019 at 18:18 Medical Diagnosis: CVA, L sided weakness Onset Date: Jun 22, 2019 Therapy Diagnosis Therapy Diagnosis: Decreased I/ADL function Height/Weight Height (Feet): 5 Height (Inches): 6.00 Weight (Pounds): 258 Weight (Ounces): 0.0 Precautions Precautions/Isolations: Fall Prevention, Standard Precautions Referral Physician: Luis Eduardo Referral Reason: Activity Tolerance, Self Care, Evaluation/Treatment, Strengthening/ROM Medical History Pertinent Medical History: DM, HTN, Lymphoma Additional Medical History B mastectomy, carpal tunnel release, hysterectomy Current History Pt states increased weakness of LUE/ LE, took baby aspirin and BP medication. Was admitted to ER yesterday. CT negative. 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 ADL-Prior Level of Function SCALE: Activities may be completed with or without assistive devices. 3-Fzrblkysps-xvebbgd completes the activity by him/herself with no assistance from a helper. 5-Set-up or Clean-up Assistance-helper sets up or cleans up; patient completes activity. [place] assists only prior to or following the activity. 4-Supervision or Touching Assistance-helper provides verbal cues and/or touching/steadying and/or contact guard assistance as patient completes activity. Assistance may be provided throughout the activity or intermittently. 3-Partial/Moderate Assistance-helper does LESS THAN HALF the effort. [place] lifts, holds or supports trunk or limbs, but provides less than half the effort. 2-Substantial/Maximal Assistance-helper does MORE THAN HALF the effort. [place] lifts or holds trunk or limbs and provides more than half the effort. 7-Powlswlxc-drnnxi does ALL the effort. Patient does none of the effort to complete the activity. Or, the assistance of 2 or more helpers is required for the patient to complete the activity. If activity was not attempted, code reason: 7-Patient Refused. 9-Not Applicable-not attempted and the patient did not perform the activity before the current illness, exacerbation or injury. 10-Not Attempted due to Environmental Limitations-(lack of equipment, weather restraints, etc.). 88-Not Attempted due to Medical Conditions or Safety Concerns. Self Care: Needed Some Help Functional Cognition: Independent DME/Equipment: Bath Chair, Tub/Shower DME/Equipment Comments Pt ambulated with single point cane prior to hospitalization. Pt states only required assist with washing/ rinsing bottom prior to hospitalization. Occupation: retired Drive Self: Yes OT Current Status Subjective Pt seen in bed. Pt states no pain, no numbness/ tingling. Agreeable to OT eval/ treat. Mental Status/Objective Patient Orientation: Person, Place, Situation, Normal For Age Attachments: IV, Suprapubic Catheter Current Glasses/Contacts: Yes Hearing Aids: No Dentures/Partials: No Hand Dominance: Right Upper Extremity ROM WFL BUE Upper Extremity Coordination WFL BUE Upper Extremity Sensation WFL BUE Upper Extremity Strength Impaired bilaterally (4-/5) Manager Intensive Care Unit strength ~similar bilaterally. ADL-Treatment Eating (QC): 6 On/Off Footwear (QC): 6 Toilet Transfer (QC): 4 Other Treatments Pt completes ROM in bed. Bed mob with encouragement without touching assist. Pt moved EOB and sit to stand with CGA. Pt utilizes FWW to turn to recliner chair, sits with control. Pt completes sock don/ doffing with IND, increased time. Pt slightly SOB during movement tasks. Pt requests shower cap, completes hair grooming with s/u.Pt educated of OT role, and use of functional activities to encourage endurance and strengthening. Pt left with in room, call light in reach, all needs met. Education OT Patient Education: Correct positioning, Modified ADL techniques, Purpose of tx/functional activities, Safety issues Teaching Recipient: Patient Teaching Methods: Demonstration, Discussion Response to Teaching: Verbalize Understanding, Return Demonstration OT Short Term Goals Short Term Goals 1=Demonstrate adherence to instructed precautions during ADL tasks. 2=Patient will verbalize/demonstrate understanding of assistive devices/modifications for ADL. 3=Patient will improve strength/tolerance for activity to enable patient to perform ADL's. OT Fdc Goals Fdc Goals Time Frame: Jun 30, 2019 Eating (QC): 6 Oral Hygiene (QC): 6 Shower/Bathe Self (QC): 6 Upper Body Dressing (QC): 6 Lower Body Dressing (QC): 6 On/Off Footwear (QC): 6 Toileting Hygiene (QC): 6 Toilet/Commode Transfer (QC): 6 Additional Goals: 1-Demonstrate ADL Tasks, 2-Verbalize Understanding, 3- ImproveStrength/Catina 1=Demonstrate adherence to instructed precautions during ADL tasks. 2=Patient will verbalize/demonstrate understanding of assistive devices/modifications for ADL. 3=Patient will improve strength/tolerance for activity to enable patient to perform ADL's. OT Education/Plan Problem List/Assessment Assessment: Decreased Activ Tolerance, Decreased UE Strength, Dependent Transfers, Impaired Funct Balance, Impaired I ADL's, Impaired Self-Care Skills Discharge Recommendations Plan/Recommendations: Continue POC Equpiment Recommendations-D/C: Rails on Tub/Shower Patient/Family Goals return home with increased strength/ endurance. Treatment Plan/Plan of Care Treatment,Training & Education: Yes Patient would benefit from OT for education, treatment and training to promote independence in ADL's, mobility, safety and/or upper extremity function for ADL's. Plan of Care: ADL Retraining, Functional Mobility, UE Funct Exercise/Act, UE Neuromus Re-Ed/Coord Treatment Duration: Jun 30, 2019 Frequency: 5 times per week Estimated Hrs Per Day: .25 hour per day Agreement: Yes Rehab Potential: Good Time/GCodes Start Time: 10:30 Stop Time: 10:54 Total Time Billed (hr/min): 24 Billed Treatment Time 1, EVM (10), ADL (14)= 24 TAYA GOTTI OTR Jun 23, 2019 11:05 POS
--- NOTE | 2019-06-23 11:15 | History & Physical ---
HPI History of Present Illness: 63 yo female brought to ER via EMS due to weakness of left side and dizziness starting around 3:30 yesterday afternoon. In the ER she initially had low NIH score and improving symptoms and CT head was okay, however, she had then worsening symptoms with increasing score and she did receive TPA. CTA of head was negative for blockage. She has no known history of atrial fibrillation. She does have a history of HTN and DMII which is currently diet controlled (last A1c per her report was 6.2). This morning she states she is feeling pretty well and is hopeful to go home soon, but she does still have some lingering weakness in her left leg and is occasionally stumbling over words. Source: patient Date seen by provider: Jun 23, 2019 Time Seen by Provider: 09:55 Attending Physician Brittany Hoff MD PCP Liliam Whitehead MD Consult Date of Admission Jun 22, 2019 at 18:18 Home Medications Home Medications Reviewed patient Home Medication Reconciliation performed by pharmacy medication reconciliations photo equipment technician and/or nursing. Patients Allergies have been reviewed. Allergies Coded Allergies: No Known Drug Allergies (Unverified , 04/13/19) DUL-Asaqfl-[place]ctia Hx Patient Social History Alcohol Use: Rarely Uses Recreational Drug Use: No 2nd Hand Smoke Exposure: Yes Recent Foreign Travel: No Contact w/other who traveled: No Recent Hopitalizations: No Recent Infectious Disease Expo: No Immunizations Up To Date Tetanus Booster (TDap): Unknown Date of Pneumonia Vaccine: Jun 22, 2009 Past Medical History PMHx: HTN DMII IBS Breast cancer in 2004 with bilateral mastectomy and chemo SurgHx: Tonsillectomy Bilateral mastectomy and breast reconstruction Bilateral carpal tunnel release Bilateral trigger finger releases Hysterectomy with salpingoophorectomy Left wrist fracture repair with plate Appendectomy with umbilical hernia repair Family Medical History Significant Family History: Cancer (mother, breast, father and brother prostate, brother leukemia), CAD Over 55 Years Old Family History: Cardiovascular disease G8 BROTHER, Onset:Unknown G8 SISTER, Onset:Unknown FH: breast cancer 19 MOTHER, Onset:Unknown FH: congestive heart failure 19 MOTHER, Onset:Unknown FH: leukemia G8 BROTHER, Onset:Unknown FH: pancreatic cancer 19 MOTHER, Onset:Unknown FH: prostate cancer 19 FATHER, Onset:Unknown G8 BROTHER, Onset:Unknown Hypertension 19 FATHER, Onset:Unknown G8 SISTER, Onset:Unknown Parkinson's disease G8 SISTER, Onset:Unknown Ulcerative colitis G8 BROTHER, Onset:Unknown Review of Systems ([facility]) Constitutional: No fever EENTM: nose congestion ("seasonal allergies") Respiratory: No cough; short of breath (occasional intermittent with exertion) Cardiovascular: chest pain (none currently, has occasional intermittent with exertion) Gastrointestinal: constipation, diarrhea; No nausea, No vomiting Genitourinary: No dysuria Musculoskeletal: No joint pain Skin: No rash Reviewed Test Results Reviewed Test Results Lab Laboratory Tests Test 06/22/19 16:55 06/22/19 18:30 06/23/19 03:20 Range/Units White Blood Count 8.8 9.8 4.3-11.0 10^3/uL Red Blood Count 4.96 4.60 4.35-5.85 10^6/uL Hemoglobin 14.2 13.4 11.5-16.0 G/DL Hematocrit 43 40 35-52 % Mean Corpuscular Volume 88 87 80-99 FL Mean Corpuscular Hemoglobin 29 29 25-34 PG Mean Corpuscular Hemoglobin Concent 33 34 32-36 G/DL Red Cell Distribution Width 14.6 H 14.5 10.0-14.5 % Platelet Count 238 225 130-400 10^3/uL Mean Platelet Volume 9.9 10.4 7.4-10.4 FL Neutrophils (%) (Auto) 77 H 71 42-75 % Lymphocytes (%) (Auto) 16 20 12-44 % Monocytes (%) (Auto) 6 7 0-12 % Eosinophils (%) (Auto) 1 2 0-10 % Basophils (%) (Auto) 0 0 0-10 % Neutrophils # (Auto) 6.8 7.0 1.8-7.8 X 10^3 Lymphocytes # (Auto) 1.4 1.9 1.0-4.0 X 10^3 Monocytes # (Auto) 0.6 0.7 0.0-1.0 X 10^3 Eosinophils # (Auto) 0.1 0.2 0.0-0.3 10^3/uL Basophils # (Auto) 0.0 0.0 0.0-0.1 10^3/uL Prothrombin Time 13.9 12.2-14.7 SEC INR Comment 1.0 0.8-1.4 Activated Partial Thromboplast Time 30 24-35 SEC D-Dimer <= 0.27 0.00-0.49 UG/ML Sodium Level 139 142 135-145 MMOL/L Potassium Level 3.5 L 3.5 L 3.6-5.0 MMOL/L Chloride Level 103 107 98-107 MMOL/L Carbon Dioxide Level 25 23 21-32 MMOL/L Anion Gap 11 12 5-14 MMOL/L Blood Urea Nitrogen 17 12 7-18 MG/DL Creatinine 0.72 0.63 0.60-1.30 MG/DL Estimat Glomerular Filtration Rate > 60 > 60 BUN/Creatinine Ratio 24 19 Glucose Level 111 H 112 H 70-105 MG/DL Calcium Level 9.6 9.3 8.5-10.1 MG/DL Corrected Calcium 8.5-10.1 MG/DL Total Bilirubin 0.5 0.1-1.0 MG/DL Aspartate Amino Transf (AST/SGOT) 21 5-34 U/L Alanine Aminotransferase (ALT/SGPT) 16 0-55 U/L Alkaline Phosphatase 98 40-136 U/L Troponin I < 0.028 <0.028 NG/ML Total Protein 8.1 6.4-8.2 GM/DL Albumin 4.8 H 3.2-4.5 GM/DL Urine Color YELLOW Urine Clarity CLEAR Urine pH 5.5 5-9 Urine Specific [place] <=1.005 1.016-1.022 Urine Protein NEGATIVE NEGATIVE Urine Glucose (UA) NEGATIVE NEGATIVE Urine Ketones 1+ H NEGATIVE Urine Nitrite NEGATIVE NEGATIVE Urine Bilirubin NEGATIVE NEGATIVE Urine Urobilinogen 0.2 < = 1.0 MG/DL Urine Leukocyte Esterase NEGATIVE NEGATIVE Urine RBC (Auto) 2+ H NEGATIVE Urine RBC 5-10 H /HPF Urine WBC NONE /HPF Urine Squamous Epithelial Cells 2-5 /HPF Urine Crystals NONE /LPF Urine Bacteria TRACE /HPF Urine Casts NONE /LPF Urine Mucus NEGATIVE /LPF Urine Culture Indicated NO Phosphorus Level 3.8 2.3-4.7 MG/DL Magnesium Level 1.9 1.6-2.4 MG/DL Triglycerides Level 139 <150 MG/DL Cholesterol Level 223 H < 200 MG/DL LDL Cholesterol Direct 169 H 1-129 MG/DL VLDL Cholesterol 28 5-40 MG/DL HDL Cholesterol 49 40-60 MG/DL Radiology 06/22/19 CT head: IMPRESSION: No hemorrhage or focal intra-axial mass. No CT evidence of large acute territorial ischemia. 06/22/19 CXR: normal 06/22/19 CTA head: IMPRESSION: 1. No stenosis or aneurysm in the [place]. 2. No stenosis or dissection the bilateral carotid and vertebral arteries. Physical Exam-([facility]) Physical Exam Vital Signs VS - Last 72 Hours, by Label POS 06/22/19 06/22/19 06/22/19 06/22/19 16:50 17:18 18:56 19:00 Temp 36.6 Pulse 81 72 70 Resp 16 18 18 B/P (MAP) 184/93 (123) 157/83 175/89 (117) Pulse Ox 98 99 100 O2 Delivery Room Air Room Air Room Air 06/22/19 06/22/19 06/22/19 06/22/19 19:00 19:06 19:41 20:00 Temp 36.6 Pulse 70 70 70 77 Resp 18 12 B/P (MAP) 175/89 (117) 161/83 (109) Pulse Ox 100 100 O2 Delivery Room Air Room Air 06/22/19 06/22/19 06/22/19 06/23/19 21:00 22:00 23:00 00:00 Pulse 84 93 82 74 Resp 17 17 9 17 B/P (MAP) 157/83 (107) 153/79 (103) 134/65 (88) 142/79 (100) Pulse Ox 97 98 95 96 O2 Delivery Room Air Room Air Room Air Room Air 06/23/19 06/23/19 06/23/19 06/23/19 00:00 00:00 01:00 01:00 Temp 36.4 Pulse 77 72 Resp 37 B/P (MAP) 131/68 (89) Pulse Ox 99 O2 Delivery Room Air Room Air 06/23/19 06/23/19 06/23/19 06/23/19 02:00 03:00 03:56 04:00 Temp 36.2 Pulse 72 73 74 Resp 28 36 49 B/P (MAP) 143/79 (100) 147/68 (94) 151/75 (100) Pulse Ox 95 94 97 O2 Delivery Room Air Room Air Room Air 06/23/19 06/23/19 06/23/19 06/23/19 04:00 05:00 06:00 07:00 Pulse 77 78 Resp 34 B/P (MAP) 166/89 (114) 150/88 (108) Pulse Ox 97 96 O2 Delivery Room Air Room Air Room Air 06/23/19 06/23/19 06/23/19 06/23/19 07:00 08:00 09:00 10:00 Pulse 75 83 76 77 Resp 31 20 15 11 B/P (MAP) 166/88 (114) 162/86 (111) 161/87 (111) 164/84 (110) Pulse Ox 97 97 99 99 O2 Delivery Room Air Room Air Room Air Room Air Capillary Refill : Less Than 3 Seconds General Appearance: WD/WN, no apparent distress HEENT: PERRL/EOMI Respiratory: lungs clear, normal breath sounds Cardiovascular: regular rate, rhythm, no murmur Gastrointestinal: normal bowel sounds, non tender, soft Extremities: no pedal edema Neurologic/Psychiatric: manager garden II-XII nml as tested, alert, normal mood/affect; No abnormal cerebellar tests, No aphasia, No EOM palsy, No facial droop; motor weakness (left hip flexion 4/5) Skin: normal color, warm/dry Assessment/Plan Assessment/Plan Admission Status: Inpatient Order (span 2 midnights) Reason for Inpatient Admission: Stroke with TPA treatment (1) CVA (cerebral vascular accident) Status: Acute Assessment & Plan: s/p TPA administration with good results. Slight left leg weakness persists. -PT/OT, ST already signed off, eating regular diet. -MRI -Echo Qualifiers: Qualified Codes: I63.9 - Cerebral infarction, unspecified (2) Hypertension Status: Chronic Assessment & Plan: Keep BP below 180/105 for at least 24 hours, has nicardipine ordered prn, has not needed. Qualifiers: Qualified Codes: I10 - Essential (primary) hypertension (3) Diabetes mellitus, type 2 Status: Chronic Assessment & Plan: Diabetic diet Qualifiers: Qualified Codes: E11.9 - Type 2 diabetes mellitus without complications (4) Hematuria Status: Acute Assessment & Plan: Microscopic hematuria, likely due to catheter insertion. (5) DVT prophylaxis Status: Acute Assessment & Plan: No anticoagulants for 24 hours after TPA. Clinical Quality Measures DVT/VTE Risk/Contraindication: Risk Factor Score Per Nursin RFS Level Per Nursing on Admit: 4+=Very High Stroke: Date of last known well: Jun 22, 2019 Copy Copies To 1: LILIAM WHITEHEAD MD, BETHANY N MD Jun 23, 2019 11:15 POS
--- NOTE | 2019-06-23 12:34 | NUR ---
DISCHARGE PLANNING: Met with patient today initially to determine if she will have needs post discharge. She has had a CVA, is able to talk, no droop, left side weakness but moves u/l extremities. SHe is tearful, reporting fear of the unknown and family estrangement. Patient reports having been on a KETOGENIC diet for several months and having lost 40+ pounds on it. Will continue to follow and offer assistance as needed.
--- NOTE | 2019-06-23 12:45 | NUR ---
THIS RN CONTACTED DR. MORALES AT 1217 TO INFORM THAT PT COMPLAINS OF NUMBNESS/TINGLING IN BOTTOM LIP WITH LEFT SIDED ARM WEAKNESS WHILE EATING LUNCH LASTING BETWEEN 5-10 SECONDS. CONTINUED TO MONITOR PT, DR. MORALES STATED TO KEEP HER POSTED. AT 1230 PT STARTED HAVING SAME SYMPTOMS WITH LONGER DURATION. THIS RN ACTIVATED STROKE TEAM. PT INITIAL NIH SCORE OF 7. PT CURRENTLY DOWN IN CT.
--- NOTE | 2019-06-23 13:15 | NUR ---
PT BACK TO ROOM FROM CT AT 1306. REPEAT NIH OF 2. WILL CONTINUE TO MONITOR.
--- NOTE | 2019-06-23 13:19 | Diagnostic Imaging Report ---
Clinical indication: Patient came in last night with left-sided weakness. Patient had TPA and was better. While at lunch, the patient had numbness and weakness again. Exam: Axial CT scan of the neck soft tissue performed without IV contrast. Comparison: Head CT without contrast dated 06/22/2019. Findings: There is no evidence of acute cerebral infarct, intracranial hemorrhage, or gross mass effect. The brain parenchymal volume appears appropriate for patient's age. Stable subtle focal areas of low attenuation white matter changes involving both cerebral hemispheres, likely representing chronic small vessel ischemic disease. There is normal elizabeth-white matter distinction. There is no significant midline shift or herniation. There is no evidence of hydrocephalus. The basal cisterns are unremarkable. The skull, extracranial soft tissue, and orbits are unremarkable. The paranasal sinuses are unremarkable. Temporal bones show no significant abnormality. Impression: Stable CT scan of the brain with no evidence of interval acute intracranial process. Results of this report were discussed with Dr. Brittany Hoff via the telephone on 06/23/2019 at 1300 hours. Dictated by: Dictated on workstation # [id number]
--- NOTE | 2019-06-23 14:22 | NUR ---
Initial visit by Straw Hat Washer Operatorweston Palacios: Engaged in rapport building and educated about Spiritual Care Services. Pt is Church and requested prayer.
[2019-06-23] MEDS ORDERED: ACETAMINOPHEN 500 MG TAB (TYLENOL) PO PRN (15:15)
[2019-06-23] MEDS: ASPIRIN E.C. 325 MG (ECOTRIN) TABLET PO SCH (17:18)
--- NOTE | 2019-06-23 22:41 | NUR ---
Timeline note below At 4 Pt started complaining of left facial numbness, NIH stroke scale of 2, pt experience left sided weakness in left extremities. 2236 This RN notified EICU of patient status change and as this RN was reporting to EICU pt stated it was resolving. 224 NIH scale repeated and pt scored 0, EICU notified at this time. Will continue to monitor.
[2019-06-24] VITALS (15 sets, daily range): BP systolic 136–168; BP diastolic 66–91
[2019-06-24] MEDS ORDERED: ALPRAZolam 0.5 MG (XANAX) TAB PO ONE (00:45)
[2019-06-24] MEDS: niCARdipine 50 MG/NS 250 ML IV DRIP IV SCH ×4 (00:50→07:10)
[2019-06-24 03:28] LABS: BASOPHILS # (AUTO) 0.1 10^3/uL (0.0-0.1); BASOPHILS % (AUTO) 1 % (0-10); EOSINOPHILS # (AUTO) 0.2 10^3/uL (0.0-0.3); EOSINOPHILS % (AUTO) 2 % (0-10); HEMATOCRIT 40 % (35-52); HEMOGLOBIN 13.6 G/DL (11.5-16.0); LYMPHOCYTES # (AUTO) 1.8 X 10^3 (1.0-4.0); LYMPHOCYTES % (AUTO) 20 % (12-44); MEAN CORPUSCULAR HEMOGLOBIN 30 PG (25-34); MEAN CORPUSCULAR HGB CONC 34 G/DL (32-36); MEAN CORPUSCULAR VOLUME 88 FL (80-99); MEAN PLATELET VOLUME 10.4 FL (7.4-10.4); MONOCYTES # (AUTO) 0.6 X 10^3 (0.0-1.0); MONOCYTES % (AUTO) 7 % (0-12); NEUTROPHILS # (AUTO) 6.4 X 10^3 (1.8-7.8); NEUTROPHILS % (AUTO) 70 % (42-75); PLATELET COUNT 217 10^3/uL (130-400); RED CELL DISTRIBUTION WIDTH 14.4 % (10.0-14.5)
[2019-06-24 03:52] LABS: BUN/CREATININE RATIO 22; CALCIUM 9.6 MG/DL (8.5-10.1); CARBON DIOXIDE 21 MMOL/L (21-32); CHLORIDE 107 MMOL/L (98-107); CREATININE SERUM 0.64 MG/DL (0.60-1.30); GFR ESTIMATED > 60; GLUCOSE 111 MG/DL (70-105); MAGNESIUM 1.9 MG/DL (1.6-2.4); PHOSPHORUS 4.4 MG/DL (2.3-4.7); POTASSIUM 3.7 MMOL/L (3.6-5.0); SODIUM 142 MMOL/L (135-145)
[2019-06-24] MEDS ORDERED: LORazepam 0.5 MG (ATIVAN) TABLET ONE (04:12)
[2019-06-24] MEDS ORDERED: ALPRAZolam 0.5 MG (XANAX) TAB ONE (04:18)
[2019-06-24] MEDS: MAGNESIUM 1 GM/100 ML IVPB 100 ML IV SCH (04:24)
[2019-06-24] MEDS: POTASSIUM CL 10MEQ/50ML IVPB 50 ML IV SCH (04:24)
[2019-06-24] MEDS: KCL 20 MEQ TAB (K-DUR) PO SCH (04:25)
--- NOTE | 2019-06-24 07:33 | Diagnostic Imaging Report ---
INDICATION: Dyspnea. Comparison made with prior examination of 06/23/2019. FINDINGS: There is cardiomegaly. The lungs are clear. No pleural effusion or pneumothorax. Mediastinum is unremarkable. IMPRESSION: No acute cardiopulmonary abnormality. Cardiomegaly. Dictated by: Dictated on workstation # [id number]
[2019-06-24] MEDS: ASPIRIN E.C. 325 MG (ECOTRIN) TABLET PO SCH (08:28)
[2019-06-24] MEDS ORDERED: lisINopril 5 MG (PRINIVIL) TABLET PO SCH (09:00)
--- NOTE | 2019-06-24 09:30 | Physical Therapy Daily Note ---
PT Daily Note-Current Subjective Patient reports she had 2 episodes yesterday and will have an MRI on this date. RN confirms. Mental Status Patient Orientation: Normal For Age Attachments: Marcus Catheter Transfers SCALE: Activities may be completed with or without assistive devices. 3-Hglcbqvjkf-lyamzvb completes the activity by him/herself with no assistance from a helper. 5-Set-up or Clean-up Assistance-helper sets up or cleans up; patient completes activity. [place] assists only prior to or following the activity. 4-Supervision or Touching Assistance-helper provides verbal cues and/or touching/steadying and/or contact guard assistance as patient completes activity. Assistance may be provided throughout the activity or intermittently. 3-Partial/Moderate Assistance-helper does LESS THAN HALF the effort. [place] lifts, holds or supports trunk or limbs, but provides less than half the effort. 2-Substantial/Maximal Assistance-helper does MORE THAN HALF the effort. [place] lifts or holds trunk or limbs and provides more than half the effort. 5-Mynkrgocd-ddtghi does ALL the effort. Patient does none of the effort to complete the activity. Or, the assistance of 2 or more helpers is required for the patient to complete the activity. If activity was not attempted, code reason: 7-Patient Refused. 9-Not Applicable-not attempted and the patient did not perform the activity before the current illness, exacerbation or injury. 10-Not Attempted due to Environmental Limitations-(lack of equipment, weather restraints, etc.). 88-Not Attempted due to Medical Conditions or Safety Concerns. Roll Left to Right (QC): 6 Sit to Lying (QC): 6 Sit to Stand (QC): 6 Chair/Ngq-fy-Nkead Xfer(QC): 6 Bed to/from Chair: 6 Gait Training Does the Patient Walk?: Yes Distance: 200' Walk 10 feet (QC): 6 Walk 50 ft with 2 Turns(QC): 6 Walk 150 ft (QC): 6 Gait Assistive Device: FWW slow, steady, functional gait sequence Exercises Seated Therapy Exercises: Ankle pumps, Long arc quads Seated Reps: 15 Assessment Patient tolerated treatment well and is up in recliner with needs met. Patient will benefit from home health intervention to ensure home is safe and functional with AD upon dismissal. PT Half-Way Goals Magistrate Judge Goals PT Magistrate Judge Goals Time Frame: Jul 01, 2019 Sit to Lying (QC): 6 Lying-Sitting on Side/Bed(QC): 6 Sit to Stand (QC): 6 Roll Left to Right (QC): 6 Chair/Iun-st-Nxhse Xfer(QC): 6 Car Transfer (QC): 6 Does the Patient Walk: Yes Distance: 200' Walk 10 feet (QC): 6 Walk 10ft-Uneven Surface(QC): 6 Walk 50ft with 2 Turns (QC): 6 Walk 150 ft (QC): 6 Gait Assistive Device: FWW PT Plan Treatment/Plan Treatment Plan: Continue Plan of Care Treatment Plan: Bed Mobility, Education, Functional Activity [place], Functional Strength, Gait, Safety, Therapeutic Exercise, Transfers Treatment Duration: Jul 01, 2019 Frequency: 6 times per week Estimated Hrs Per Day: .25 hour per day Patient and/or Family Agrees t: Yes Time/GCodes Time In: 900 Time Out: 914 Total Billed Treatment Time: 14 Total Billed Treatment 1 visit FA 14 min JAYCEE RUSSO PT Jun 24, 2019 09:30 POS
--- NOTE | 2019-06-24 10:45 | NUR ---
DISCHARGE PLANNING: Visited with patient. She is in slightly better spirits today and is wanting to go home but is nervous and reporting a couple additional episodes of face numbness and weakness. Therapy reports that she is doing great and has only the need of a walker. SHe is scheduled for an MRI today possibly will discharge to home once that is reviewed
--- NOTE | 2019-06-24 11:34 | Occupational Ther Daily Note ---
OT Current Status-Daily Note Subjective Pt seen in recliner chair, present through session. Pt does not state pain, agreeable to OT tx session. Mental Status/Objective Patient Orientation: Normal For Age ADL-Treatment Therapy Code Descriptions/Definitions Functional Jasper Measure: 0=Not Assessed/NA 4=Minimal Assistance 1=Total Assistance 5=Supervision or Setup 2=Maximal Assistance 6=Modified Jasper 3=Moderate Assistance 7=Complete IndependenceSCALE: Activities may be completed with or without assistive devices. 9-Cibjdpnsej-kjircyp completes the activity by him/herself with no assistance from a helper. 5-Set-up or Clean-up Assistance-helper sets up or cleans up; patient completes activity. Denhoff assists only prior to or following the activity. 4-Supervision or Touching Assistance-helper provides verbal cues and/or touching/steadying and/or contact guard assistance as patient completes activity. Assistance may be provided throughout the activity or intermittently. 3-Partial/Moderate Assistance-helper does LESS THAN HALF the effort. Denhoff lifts, holds or supports trunk or limbs, but provides less than half the effort. 2-Substantial/Maximal Assistance-helper does MORE THAN HALF the effort. Denhoff lifts or holds trunk or limbs and provides more than half the effort. 3-Jqszkhszm-xicpfe does ALL the effort. Patient does none of the effort to complete the activity. Or, the assistance of 2 or more helpers is required for the patient to complete the activity. If activity was not attempted, code reason: 7-Patient Refused. 9-Not Applicable-not attempted and the patient did not perform the activity before the current illness, exacerbation or injury. 10-Not Attempted due to Environmental Limitations-(lack of equipment, weather restraints, etc.). 88-Not Attempted due to Medical Conditions or Safety Concerns. Other Treatment Pt states she had 2 episodes yesterday. States her face began to become numb, transcended down to L UE and LLE. Pt states limbs were numb and weak. Pt states she was anxious prior to 2nd episode. Pt educated on stress management techniques and diaphragmatic breathing techniques, return demonstrates with min cues. Pt completes 3/5 UE theraband exercises with cues for positioning and resistance levels. Pt educated on last 2/5 exercises. MRI present at end of session to take pt. Pt left in chair with staff. Education OT Patient Education: Correct positioning, Exercise program, Home exercise program, Purpose of tx/functional activities, Other (stress management) Teaching Recipient: Patient Teaching Methods: Demonstration, Handout, Discussion Response to Teaching: Verbalize Understanding, Return Demonstration OT Short Term Goals Short Term Goals 1=Demonstrate adherence to instructed precautions during ADL tasks. 2=Patient will verbalize/demonstrate understanding of assistive devices/modifications for ADL. 3=Patient will improve strength/tolerance for activity to enable patient to perform ADL's. OT Sports Complex Attendant Goals Sports Complex Attendant Goals Time Frame: Jun 30, 2019 Eating (QC): 6 Oral Hygiene (QC): 6 Shower/Bathe Self (QC): 6 Upper Body Dressing (QC): 6 Lower Body Dressing (QC): 6 On/Off Footwear (QC): 6 Toileting Hygiene (QC): 6 Toilet/Commode Transfer (QC): 6 Additional Goals: 1-Demonstrate ADL Tasks, 2-Verbalize Understanding, 3- ImproveStrength/Catina 1=Demonstrate adherence to instructed precautions during ADL tasks. 2=Patient will verbalize/demonstrate understanding of assistive devices/modifications for ADL. 3=Patient will improve strength/tolerance for activity to enable patient to perform ADL's. OT Education/Plan Problem List/Assessment Assessment: Decreased Activ Tolerance, Decreased UE Strength, Impaired Funct Balance, Impaired I ADL's, Impaired Self-Care Skills Discharge Recommendations Plan/Recommendations: Continue POC Treatment Plan/Plan of Care Treatment,Training & Education: Yes Patient would benefit from OT for education, treatment and training to promote independence in ADL's, mobility, safety and/or upper extremity function for ADL's. Plan of Care: ADL Retraining, Functional Mobility, UE Funct Exercise/Act, UE Neuromus Re-Ed/Coord Treatment Duration: Jun 30, 2019 Frequency: 5 times per week Estimated Hrs Per Day: .25 hour per day Agreement: Yes Rehab Potential: Good Time/GCodes Start Time: 11:03 Stop Time: 11:14 Total Time Billed (hr/min): 11 Billed Treatment Time 1, EX (11) TAYA GOTTI OTR Jun 24, 2019 11:34 POS
[2019-06-24] MEDS ORDERED: GADOBUTROL 15 MMOL/15 ML (GADAVIST) VIAL IV ONE (11:45)
--- NOTE | 2019-06-24 12:10 | Diagnostic Imaging Report ---
PROCEDURE: MR imaging of the brain with and without contrast. TECHNIQUE: Multiplanar, multisequence MR imaging of the brain was performed with and without contrast. INDICATION: Left-sided weakness. Correlation is made with head CT from 06/23/2019. Diffusion-weighted images demonstrate a small area of diffusion restriction in the right thalamus consistent with a small acute infarct. No large territory infarct is identified. The normal expected flow-voids within the carotid siphons are seen. Ventricular size is normal. There is periventricular and subcortical white matter signal abnormalities noted consistent with chronic microvascular ischemia. No acute intra-axial or extra-axial hemorrhage is detected. Corpus callosum is unremarkable. The sella and parasellar structures are unremarkable. No abnormal enhancement following contrast administration is seen. IMPRESSION: 1. Acute lacunar infarct right thalamus. No intracranial hemorrhage is detected. 2. Changes of chronic microvascular ischemia. Dictated by: Dictated on workstation # [id number]
[2019-06-24] MEDS ORDERED: ATOR80TA76 PO (15:20)
[2019-06-24] MEDS ORDERED: ASPI325T32 PO (15:20)
--- NOTE | 2019-06-24 15:30 | D/C HH Face to Face Order ---
Discharge Summary Instructions for Patient Via [facility], Assessment/Instructions Follow up with Dr. Alves this week to discuss a recorder to check for underlying/hidden atrial fibrillation. Follow up with Dr. Whitehead on 06/28 at 11:40 am. Physician to follow Patient: Dr. Whitehead Discharge Diet for Home: ADA Diet, Cardiac Diet Hospital Course Date of Admission: Jun 22, 2019 at 18:18 Admission Diagnosis : Cerebrovascular accident Family Physician/Provider: Date of Discharge: 06/24/19 Discharge Diagnosis: Cerebrovascular accident HTN HLD Diet controlled DMII Hospital Course: 63 yo female admitted with left sided weakness, initial CT head negative for acute bleed, initial NIH score 2, but had worsening and CTA was done which did not show specific occlusion, due to worsened symptoms and increasing NIH score, TPA was administered in the ER and she had resolution of symptoms after. During admission, she did have an acute episode of recurrence of worsened weakness and had repeat CT with no bleed or change. This resolved in a few moments. Her baseline at d/c was 3+/5 strength in left leg and otherwise neurologically intact. She had MRI done which showed small right lacunar stroke. She was discharged with home health and walker. Her echocardiogram did not show cardiac source for embolism, she is to follow up with Dr. Alves outpatient to consider loop recorder for cryptogenic atrial fibrillation check. She was started on atorvastatin and aspirin which were prescribed on d/c. Labs and Pending Lab Test: Laboratory Tests 06/24/19 03:00: White Blood Count 9.0, Red Blood Count 4.60, Hemoglobin 13.6, Hematocrit 40, Mean Corpuscular Volume 88, Mean Corpuscular Hemoglobin 30, Mean Corpuscular Hemoglobin Concent 34, Red Cell Distribution Width 14.4, Platelet Count 217, Mean Platelet Volume 10.4, Neutrophils (%) (Auto) 70, Lymphocytes (%) (Auto) 20, Monocytes (%) (Auto) 7, Eosinophils (%) (Auto) 2, Basophils (%) (Auto) 1, Neutrophils # (Auto) 6.4, Lymphocytes # (Auto) 1.8, Monocytes # (Auto) 0.6, Eosinophils # (Auto) 0.2, Basophils # (Auto) 0.1, Sodium Level 142, Potassium Level 3.7, Chloride Level 107, Carbon Dioxide Level 21, Anion Gap 14, Blood Urea Nitrogen 14, Creatinine 0.64, Estimat Glomerular Filtration Rate > 60, BUN/Creatinine Ratio 22, Glucose Level 111H, Calcium Level 9.6, Phosphorus Level 4.4, Magnesium Level 1.9 Microbiology 06/22/19 MRSA Screen - Final, Complete MRSA not isolated Home Meds Active Aspirin EC (Aspirin) 325 Mg Tablet.dr 325 Mg PO DAILY Atorvastatin Calcium 80 Mg Tablet 80 Mg PO HS Reported Melatonin 3 Mg Tablet 3 Mg PO HS Hair Skin Nails-Biotin Gummies (Ascorbic Acid/Vitamin E/Biotin) 1 Each Tab.chew 1 Tab.chew PO DAILY Lisinopril 2.5 Mg Tablet 2.5 Mg PO DAILY Patient Allergies: Coded Allergies: No Known Drug Allergies (Unverified , 04/13/19) Height (Feet): 5 Height (Inches): 6.00 Weight (Pounds): 258 Weight (Ounces): 0.0 Home Health Need/Face to Face Date of Face to Face: Jun 24, 2019 Clinical Findings: Generalized weakness and fatigue, Instability I have seen Pt [id number]: Yes Discharged To: Home Diagnosis/Conditions: Cerebrovascular accident Hyperlipidemia Hypertension Diabetes Patient is Homebound due to: Ross fall risk due to instabilty Homebound Status Due to the above stated illness, injury or surgical procedure (medical condition or diagnosis) and associated clinical findings, the patient is homebound because of his/her inability to leave home except with aid of a supportive device and/or person AND leaving the home requires a considerable and taxing effort or is medically contraindicated. Pt req the following assistanc: Walker Home Health Nursing Orders Home Health Services Order: Nursing Services, Teaching Manager-Evaluate & Treat, Physical Therapy-Evaluate & Treat Home Health Infusion Therapy Line Start Date: Jun 22, 2019 Therapy Orders Therapy Orders: OT (must have SN or PT order), PT to assess for OT Therapy Specific Orders: Teach enviro modifications/safety, Gait training, Increase strength/endurance Certify Stmt I certify that this patient is under my care and that I, a nurse practitioner or a physician; a payroll and benefits assistant working with me, had a face to face encounter that - meets the physician face to face encounter requirements with this patient as dated. Discharge Physical Exam General: Alert, No Acute Distress Lungs: Clear to Auscultation, Normal Air Movement Heart: Regular Rate, No Murmurs Abdomen: Normal Bowel Sounds Neuro: Normal Speech, Cranial Nerves 3-12 NL, Other (3+/5 strength in left leg) Psych/Mental Status: Mental Status NL ANAY MORALES MD Jun 24, 2019 15:29 POS
--- NOTE | 2019-06-24 15:52 | NUR ---
DISCHARGE PLANNING: Patient is discharge after review of her MRI results by Dr. Hoff. Talked to the patient regarding discharge needs and asked her if she thought she needed [facility]. She said she would and has a friend that works for [facility] and would like to use them. I called them and left a message and sent clinical information including discharge information. Talked to the patient ad told her to expect a call but if she did not get on she should call her friend and tell her a referral was sent to the office and if anything is needed that she could call me on Thursday (business card was given to her).
== END 2019-06-24 16:33 | disposition home health service (06) | DRG 62 ==
LOC: EDUNIT# 16:50 → ER 16:51 → ICU 18:18
PROVIDERS: ADMIT Family Medicine; ATTEND Family Medicine
DX: I63.9 Cerebral infarction, unspecified (principal); G81.94 Hemiplegia, unspecified affecting left nondominant side; R29.810 Facial weakness; R47.89 Other speech disturbances; C85.90 Non-Hodgkin lymphoma, unspecified, unspecified site; R29.708 NIHSS score 8; I10 Essential (primary) hypertension; E11.9 Type 2 diabetes mellitus without complications; F32.9 Major depressive disorder, single episode, unspecified; J30.2 Other seasonal allergic rhinitis; K58.9 Irritable bowel syndrome, unspecified; G43.909 Migraine, unspecified, not intractable, without status migrainosus; Z87.891 Personal history of nicotine dependence; Z85.3 Personal history of malignant neoplasm of breast; Z90.13 Acquired absence of bilateral breasts and nipples; Z92.21 Personal history of antineoplastic chemotherapy; Z92.3 Personal history of irradiation
CPT/HCPCS: 36415; 51702; 70450; 70496; 70498; 70553; 71045; 80048; 80053; 80061; 81000; 82962; 83735; 84100; 84484; 85025; 85379; 85610; 85730; 87081; 92977; 93005; 93041; 93306; 96365

== ENCOUNTER → 2020-02-15 | Outpatient (CLI) | payer MEDICARE, OTHER ==
[~2020-02-15] VITALS: Ht 167 cm; Wt 122.0 kg
[~2020-02-15] MED LIST changes: +ASCO1TAB39 PO; +ASPI325T32 PO; +ATOR80TA76 PO; +CATHETER FLUSH 10 ML SYR IV PRN; +MELA3TAB39 PO; +NFBIOT1000 PO; +REGADENOSON 0.4 MG/5 ML SYR (LEXISCAN) IV ONE; -TAMS0.4C98 PO; +TMSL.4C PO
[2020-02-15 09:00] LABS: ALANINE AMINOTRANSFERASE 21 U/L (0-55); ALBUMIN 4.2 GM/DL (3.2-4.5); ALKALINE PHOSPHATASE 93 U/L (40-136); BILIRUBIN,TOTAL 0.5 MG/DL (0.1-1.0); BUN/CREATININE RATIO 23; CARBON DIOXIDE 23 MMOL/L (21-32); CHLORIDE 106 MMOL/L (98-107); CHOLESTEROL 135 MG/DL (< 200); CREATININE SERUM 0.73 MG/DL (0.60-1.30); GFR ESTIMATED > 60; GLUCOSE 162 MG/DL (70-105); HDL CHOLESTEROL 51 MG/DL (40-60); SODIUM 140 MMOL/L (135-145); TRIGLYCERIDES 157 MG/DL (<150); VLDL CHOLESTEROL 31 MG/DL (5-40)
[2020-02-15 09:30] VITALS: BP 167/92
--- NOTE | 2020-02-15 14:43 | Cardiology Stress Test Report ---
Stress Test Report Date of Procedure/Referring: Date of Procedure: Feb 15, 2020 PCP Rosa Murdock Admitting Physician Renee Whitehead MD Indications: CVA, hypertension Baseline Heart Rate: 75 Baseline Blood Pressure: Blood Pressure Systolic: 167 Blood Pressure Diastolic: 92 Baseline Vitals Vital Signs Date Time Temp Pulse Resp B/P (MAP) Pulse Ox O2 Delivery O2 Flow Rate FiO2 02/15/20 09:30 77 16 167/92 (117) 99 Room Air Baseline EKG: Baseline EKG: NSR Summary After explaining the procedure to the patient, she signed a consent and then brought to the stress nuclear laboratory. Patient received 0.4 mg Lexiscan for stress test, ECG, heart rate and blood pressure were monitored continuously. Resting and stress dose of radio tracer were injected, imaging was acquired and reviewed in short axis, horizontal long axis and vertical long axis views. TID: 0.96 SSS: 10 SDS: 8 EF: 61 1. Patient tolerated Lexiscan well 2. Reversible ischemia involving the mid to apical anterior wall and anterolateral wall 3. Normal left ventricular size, EF 61 percent ADAIR MANCILLA MD Feb 15, 2020 14:43
== END ==
LOC: CARD 08:10
PROVIDERS: ATTEND Physician Assistant
DX: I11.9 Hypertensive heart disease without heart failure (principal); I63.9 Cerebral infarction, unspecified; E11.9 Type 2 diabetes mellitus without complications; I25.89 Other forms of chronic ischemic heart disease
CPT/HCPCS: 78452; 80053; 80061; 93017; A9502; 36415

== ENCOUNTER 2020-02-20 07:01 | Day surgery (SDC) | payer MEDICARE, OTHER ==
[~2020-02-20] VITALS: Ht 168 cm; Wt 123.0 kg
[2020-02-20] VITALS (11 sets, daily range): BP systolic 124–187; BP diastolic 67–106
[~2020-02-20 07:01] MED LIST changes: -CATHETER FLUSH 10 ML SYR IV PRN; -REGADENOSON 0.4 MG/5 ML SYR (LEXISCAN) IV ONE
[2020-02-20] MEDS ORDERED: LIDOCAINE 1% INJ 20 ML 20 ML VIAL ONE (07:06)
[2020-02-20] MEDS ORDERED: NS IV 1000 ML 1,000 ML ONE (07:07)
[2020-02-20] MEDS ORDERED: HEParin (CATH LAB) 2,000 ML IV ONE (07:07)
[2020-02-20] MEDS ORDERED: NS IV 1000 ML 1,000 ML IV SCH ×2 (07:15→10:06)
--- OUTSIDE RECORDS SUMMARY | 2020-02-20 07:29 | XMS REPORT | Continuity of Care Document ---
Author Organization Unknown Address Unknown Phone Unavailable Allergies Active Description Code Type Severity Reaction Onset Reported/Identified Relationship to Patient Clinical Status Yes No Known Drug Allergies [id number] Drug Allergy Unknown N/A 04/13/2019 Medications There is no data. Problems Date Dx Coded Attending Type Code Diagnosis Diagnosed By 01/10/2019 POLLO JAMES MD, Ot E11.9 TYPE 2 DIABETES MELLITUS WITHOUT COMPLIC 01/10/2019 POLLO JAMES MD, Ot E86.0 DEHYDRATION 01/10/2019 POLLO JAMES MD, Ot K35.80 UNSPECIFIED ACUTE APPENDICITIS 01/10/2019 POLLO JAMES MD, Ot K42.0 UMBILICAL HERNIA WITH OBSTRUCTION, WITHO 01/10/2019 POLLO JAMES MD, Ot N13.6 PYONEPHROSIS 01/10/2019 POLLO JAMES MD, Ot N20.0 CALCULUS OF KIDNEY 01/10/2019 POLLO JAMES MD, Ot Z85.3 PERSONAL HISTORY OF MALIGNANT NEOPLASM O 01/10/2019 POLLO JAMES MD, Ot Z90.13 ACQUIRED ABSENCE OF BILATERAL BREASTS AN 01/10/2019 MARIBELL SEPULVEDA MD, Ot Z01.8 18 ENCOUNTER FOR OTHER PREPROCEDURAL EXAMIN 01/11/2019 MARIBELL SEPULVEDA MD, Ot E11.9 TYPE 2 DIABETES MELLITUS WITHOUT COMPLIC 01/11/2019 MARIBELL SEPULVEDA MD, Ot E66.0 1 MORBID (SEVERE) OBESITY DUE TO EXCESS CA 01/11/2019 MARIBELL SEPULVEDA MD, Ot N20.0 CALCULUS OF KIDNEY 01/11/2019 MARIBELL SEPULVEDA MD, Ot Z68.4 1 BODY MASS INDEX (BMI) 40.0-44.9, ADULT 01/11/2019 MARIBELL SEPULVEDA MD, Ot Z85.3 PERSONAL HISTORY OF MALIGNANT NEOPLASM O 01/11/2019 MARIBELL SEPULVEDA MD, Ot Z90.1 0 ACQUIRED ABSENCE OF UNSPECIFIED BREAST A 01/11/2019 MARIBELL SEPULVEDA MD, Ot Z92.2 1 PERSONAL HISTORY OF ANTINEOPLASTIC CHEMO 01/14/2019 POLLO JAMES MD Ot E11.9 TYPE 2 DIABETES MELLITUS WITHOUT COMPLIC 01/14/2019 POLLO JAMES MD Ot E86.0 DEHYDRATION 01/14/2019 POLLO JAMES MD, Ot K35.80 UNSPECIFIED ACUTE APPENDICITIS 01/14/2019 POLLO JAMES MD Ot K42.0 UMBILICAL HERNIA WITH OBSTRUCTION, WITHO 01/14/2019 POLLO JAMES MD Ot N13.6 PYONEPHROSIS 01/14/2019 POLLO JAMES MD Ot N20.0 CALCULUS OF KIDNEY 01/14/2019 POLLO JAMES MD Ot Z85.3 PERSONAL HISTORY OF MALIGNANT NEOPLASM O 01/14/2019 POLLO JAMES MD, Ot Z90.13 ACQUIRED ABSENCE OF BILATERAL BREASTS AN 01/17/2019 MARIBELL SEPULVEDA MD, Ot E11.9 TYPE 2 DIABETES MELLITUS WITHOUT COMPLIC 01/17/2019 MARIBELL SEPULVEDA MD, Ot E66.0 1 MORBID (SEVERE) OBESITY DUE TO EXCESS CA 01/17/2019 MARIBELL SEPULVEDA MD, Ot N20.0 CALCULUS OF KIDNEY 01/17/2019 MARIBELL SEPULVEDA MD, Ot Z68.4 1 BODY MASS INDEX (BMI) 40.0-44.9, ADULT 01/17/2019 MARIBELL SEPULVEDA MD, Ot Z85.3 PERSONAL HISTORY OF MALIGNANT NEOPLASM O 01/17/2019 MARIBELL SEPULVEDA MD, Ot Z90.1 0 ACQUIRED ABSENCE OF UNSPECIFIED BREAST A 01/17/2019 MARIBELL SEPULVEDA MD Ot Z92.2 1 PERSONAL HISTORY OF ANTINEOPLASTIC CHEMO 01/19/2019 POLLO JAMES MD, Ot E11.9 TYPE 2 DIABETES MELLITUS WITHOUT COMPLIC 01/19/2019 POLLO JAMES MD Ot E86.0 DEHYDRATION 01/19/2019 POLLO JAMES MD, Ot K35.80 UNSPECIFIED ACUTE APPENDICITIS 01/19/2019 POLLO JAMES MD Ot K42.0 UMBILICAL HERNIA WITH OBSTRUCTION, WITHO 01/19/2019 POLLO JAMES MD Ot N13.6 PYONEPHROSIS 01/19/2019 POLLO JAMES MD Ot N20.0 CALCULUS OF KIDNEY 01/19/2019 POLLO JAMES MD, Ot Z85.3 PERSONAL HISTORY OF MALIGNANT NEOPLASM O 01/19/2019 POLLO JAMES MD, Ot Z90.13 ACQUIRED ABSENCE OF BILATERAL BREASTS AN 01/20/2019 POLLO JAMES MD, Ot E11.9 TYPE 2 DIABETES MELLITUS WITHOUT COMPLIC 01/20/2019 POLLO JAMES MD, Ot E86.0 DEHYDRATION 01/20/2019 POLLO JAMES MD, Ot K35.80 UNSPECIFIED ACUTE APPENDICITIS 01/20/2019 POLLO JAMES MD, Ot K42.0 UMBILICAL HERNIA WITH OBSTRUCTION, WITHO 01/20/2019 POLLO JAMES MD, Ot N13.6 PYONEPHROSIS 01/20/2019 POLLO JAEMS MD, Ot N20.0 CALCULUS OF KIDNEY 01/20/2019 POLLO JAMES MD, Ot Z85.3 PERSONAL HISTORY OF MALIGNANT NEOPLASM O 01/20/2019 POLLO JAMES MD, Ot Z90.13 ACQUIRED ABSENCE OF BILATERAL BREASTS AN 01/25/2019 MARIBELL SEPULVEDA MD Ot N20.0 CALCULUS OF KIDNEY 01/25/2019 MARIBELL SEPULVEDA MD Ot Z98.8 90 OTHER SPECIFIED POSTPROCEDURAL STATES 02/03/2019 MARIBELL SEPULVEDA MD Ot N20.0 CALCULUS OF KIDNEY 02/03/2019 MARIBELL SEPULVEDA MD Ot Z98.8 90 OTHER SPECIFIED POSTPROCEDURAL STATES 04/12/2019 POLLO JAMES MD Ot Z01.81 8 ENCOUNTER FOR OTHER PREPROCEDURAL EXAMIN 04/13/2019 POLLO JAMES MD Ot Z01.81 8 ENCOUNTER FOR OTHER PREPROCEDURAL EXAMIN 04/15/2019 MARIBELL SEPULVEDA MD Ot N20.0 CALCULUS OF KIDNEY 04/15/2019 MARIBELL SEPULVEDA MD Ot Z98.8 90 OTHER SPECIFIED POSTPROCEDURAL STATES 04/15/2019 POLLO JAMES MD, Ot Z01.81 8 ENCOUNTER FOR OTHER PREPROCEDURAL EXAMIN 04/19/2019 POLLO JAMES MD, Ot C50.91 9 MALIGNANT NEOPLASM OF UNSP SITE OF UNSPE 04/19/2019 POLLO JAMES MD, Ot K57.30 DVRTCLOS OF LG INT W/O PERFORATION OR AB 04/19/2019 POLLO JAMES MD Ot K58.9 IRRITABLE BOWEL SYNDROME WITHOUT DIARRHE 04/19/2019 POLLO JAMES MD Ot K64.1 SECOND DEGREE HEMORRHOIDS 04/19/2019 POLLO JAMES MD Ot K64.8 OTHER HEMORRHOIDS 04/19/2019 POLLO JAMES MD Ot Z12.11 ENCOUNTER FOR SCREENING FOR MALIGNANT NE 04/19/2019 POLLO JAMES MD Ot Z79.89 9 OTHER FPC (CURRENT) DRUG THERAPY 04/19/2019 POLLO JAMES MD Ot Z80.0 FAMILY HISTORY OF MALIGNANT NEOPLASM OF 04/19/2019 POLLO JAMES MD Ot Z80.3 FAMILY HISTORY OF MALIGNANT NEOPLASM OF 04/19/2019 POLLO JAMES MD, Ot Z80.42 FAMILY HISTORY OF MALIGNANT NEOPLASM OF 04/19/2019 POLLO JAMES MD, Ot Z82.49 FAMILY HX OF ISCHEM HEART DIS AND OTH DI 04/19/2019 POLLO JAMES MD, Ot Z83.3 FAMILY HISTORY OF DIABETES MELLITUS 04/19/2019 POLLO JAMES MD Ot Z87.89 1 PERSONAL HISTORY OF NICOTINE DEPENDENCE 04/19/2019 POLLO JAMES MD Ot C50.91 9 MALIGNANT NEOPLASM OF UNSP SITE OF UNSPE 04/19/2019 POLLO JAMES MD, Ot K57.30 DVRTCLOS OF LG INT W/O PERFORATION OR AB 04/19/2019 POLLO JAMES MD, Ot K58.9 IRRITABLE BOWEL SYNDROME WITHOUT DIARRHE 04/19/2019 POLLO JAMES MD Ot K64.1 SECOND DEGREE HEMORRHOIDS 04/19/2019 POLLO JAMES MD Ot K64.8 OTHER HEMORRHOIDS 04/19/2019 POLLO JAMES MD Ot Z12.11 ENCOUNTER FOR SCREENING FOR MALIGNANT NE 04/19/2019 POLLO JAMES MD, Ot Z79.89 9 OTHER TOWBOAT PILOT (CURRENT) DRUG THERAPY 04/19/2019 POLLO JAMES MD Ot Z80.0 FAMILY HISTORY OF MALIGNANT NEOPLASM OF 04/19/2019 POLLO JAMES MD Ot Z80.3 FAMILY HISTORY OF MALIGNANT NEOPLASM OF 04/19/2019 POLLO JAMES MD Ot Z80.42 FAMILY HISTORY OF MALIGNANT NEOPLASM OF 04/19/2019 POLLO JAMES MD, Ot Z82.49 FAMILY HX OF ISCHEM HEART DIS AND OTH DI 04/19/2019 POLLO JAMES MD, Ot Z83.3 FAMILY HISTORY OF DIABETES MELLITUS 04/19/2019 POLLO JAMES MD, Ot Z87.89 1 PERSONAL HISTORY OF NICOTINE DEPENDENCE 04/20/2019 POLLO JAMES MD, Ot Z01.81 8 ENCOUNTER FOR OTHER PREPROCEDURAL EXAMIN 06/22/2019 MARIBELL SEPULVEDA MD Ot N20.0 CALCULUS OF KIDNEY 06/22/2019 MARIBELL SEPULVEDA MD Ot Z98.8 90 OTHER SPECIFIED POSTPROCEDURAL STATES 06/22/2019 POLLO JAMES MD, Ot C50.91 9 MALIGNANT NEOPLASM OF UNSP SITE OF UNSPE 06/22/2019 POLLO JAMES MD, Ot K57.30 DVRTCLOS OF LG INT W/O PERFORATION OR AB 06/22/2019 POLLO JAMES MD, Ot K58.9 IRRITABLE BOWEL SYNDROME WITHOUT DIARRHE 06/22/2019 POLLO JAMES MD Ot K64.1 SECOND DEGREE HEMORRHOIDS 06/22/2019 POLLO JAMES MD, Ot K64.8 OTHER HEMORRHOIDS 06/22/2019 POLLO JAMES MD, Ot Z12.11 ENCOUNTER FOR SCREENING FOR MALIGNANT NE 06/22/2019 POLLO JAMES MD, Ot Z79.89 9 OTHER TOWBOAT PILOT (CURRENT) DRUG THERAPY 06/22/2019 POLLO JAMES MD, Ot Z80.0 FAMILY HISTORY OF MALIGNANT NEOPLASM OF 06/22/2019 POLLO JAMES MD, Ot Z80.3 FAMILY HISTORY OF MALIGNANT NEOPLASM OF 06/22/2019 POLLO JAMES MD, Ot Z80.42 FAMILY HISTORY OF MALIGNANT NEOPLASM OF 06/22/2019 POLLO JAMES MD, Ot Z82.49 FAMILY HX OF ISCHEM HEART DIS AND OTH DI 06/22/2019 POLLO JAMES MD, Ot Z83.3 FAMILY HISTORY OF DIABETES MELLITUS 06/22/2019 POLLO JAMES MD, Ot Z87.89 1 PERSONAL HISTORY OF NICOTINE DEPENDENCE 06/22/2019 POLLO JAMES MD, Ot Z01.81 8 ENCOUNTER FOR OTHER PREPROCEDURAL EXAMIN 06/24/2019 ANAY MORALES MD Ot C85.90 NON-HODGKIN LYMPHOMA, UNSPECIFIED, UNSPE 06/24/2019 ANAY MORALES MD Ot E11 .9 TYPE 2 DIABETES MELLITUS WITHOUT COMPLIC 06/24/2019 ANAY MORALES MD Ot F32 .9 MAJOR DEPRESSIVE DISORDER, SINGLE EPISOD 06/24/2019 ANAY MORALES MD Ot G43.909 MIGRAINE, UNSP, NOT INTRACTABLE, WITHOUT 06/24/2019 ANAY MORALES MD Ot G81.94 HEMIPLEGIA, UNSPECIFIED AFFECTING LEFT N 06/24/2019 ANAY MORALES MD Ot I10 ESSENTIAL (PRIMARY) HYPERTENSION 06/24/2019 ANAY MORALES MD Ot I63 .9 CEREBRAL INFARCTION, UNSPECIFIED 06/24/2019 ANAY MORALES MD Ot J30 .2 OTHER SEASONAL ALLERGIC RHINITIS 06/24/2019 ANAY MORALES MD Ot K58 .9 IRRITABLE BOWEL SYNDROME WITHOUT DIARRHE 06/24/2019 ANAY MORALES MD Ot R29.708 NIHSS SCORE 8 06/24/2019 ANAY MORALES MD Ot R29.810 FACIAL WEAKNESS 06/24/2019 ANAY MORALES MD Ot R47.89 OTHER SPEECH DISTURBANCES 06/24/2019 ANAY MORALES MD Ot Z85 .3 PERSONAL HISTORY OF MALIGNANT NEOPLASM O 06/24/2019 ANAY MORALES MD Ot Z87.891 PERSONAL HISTORY OF NICOTINE DEPENDENCE 06/24/2019 ANAY MORALES MD Ot Z90.13 ACQUIRED ABSENCE OF BILATERAL BREASTS AN 06/24/2019 ANAY MORALES MD Ot Z92.21 PERSONAL HISTORY OF ANTINEOPLASTIC CHEMO 06/24/2019 ANAY MORALES MD Ot Z92 .3 PERSONAL HISTORY OF IRRADIATION 06/24/2019 ANAY MORALES MD Ot C85.90 NON-HODGKIN LYMPHOMA, UNSPECIFIED, UNSPE 06/24/2019 ANAY MORALES MD Ot E11 .9 TYPE 2 DIABETES MELLITUS WITHOUT COMPLIC 06/24/2019 ANAY MORALES MD Ot F32 .9 MAJOR DEPRESSIVE DISORDER, SINGLE EPISOD 06/24/2019 ANAY MORALES MD Ot G43.909 MIGRAINE, UNSP, NOT INTRACTABLE, WITHOUT 06/24/2019 ANAY MORALES MD, Ot G81.94 HEMIPLEGIA, UNSPECIFIED AFFECTING LEFT N 06/24/2019 ANAY MORALES MD Ot I10 ESSENTIAL (PRIMARY) HYPERTENSION 06/24/2019 ANAY MORALES MD Ot I63 .9 CEREBRAL INFARCTION, UNSPECIFIED 06/24/2019 ANAY MORALES MD Ot J30 .2 OTHER SEASONAL ALLERGIC RHINITIS 06/24/2019 ANAY MORALES MD Ot K58 .9 IRRITABLE BOWEL SYNDROME WITHOUT DIARRHE 06/24/2019 ANAY MORALES MD Ot R29.708 NIHSS SCORE 8 06/24/2019 ANAY MORALES MD Ot R29.810 FACIAL WEAKNESS 06/24/2019 ANAY MORALES MD Ot R47.89 OTHER SPEECH DISTURBANCES 06/24/2019 ANAY MORALES MD Ot Z85 .3 PERSONAL HISTORY OF MALIGNANT NEOPLASM O 06/24/2019 ANAY MORALES MD Ot Z87.891 PERSONAL HISTORY OF NICOTINE DEPENDENCE 06/24/2019 ANAY MORALES MD Ot Z90.13 ACQUIRED ABSENCE OF BILATERAL BREASTS AN 06/24/2019 ANAY MORALES MD Ot Z92.21 PERSONAL HISTORY OF ANTINEOPLASTIC CHEMO 06/24/2019 ANAY MORALES MD Ot Z92 .3 PERSONAL HISTORY OF IRRADIATION 06/24/2019 ANAY MORALES MD Ot C85.90 NON-HODGKIN LYMPHOMA, UNSPECIFIED, UNSPE 06/24/2019 ANAY MORALES MD Ot E11 .9 TYPE 2 DIABETES MELLITUS WITHOUT COMPLIC 06/24/2019 ANAY MORALES MD Ot F32 .9 MAJOR DEPRESSIVE DISORDER, SINGLE EPISOD 06/24/2019 ANAY MORALES MD Ot G43.909 MIGRAINE, UNSP, NOT INTRACTABLE, WITHOUT 06/24/2019 ANAY MORALES MD Ot G81.94 HEMIPLEGIA, UNSPECIFIED AFFECTING LEFT N 06/24/2019 ANAY MORALES MD Ot I10 ESSENTIAL (PRIMARY) HYPERTENSION 06/24/2019 ANAY MORALES MD Ot I63 .9 CEREBRAL INFARCTION, UNSPECIFIED 06/24/2019 ANAY MORALES MD Ot J30 .2 OTHER SEASONAL ALLERGIC RHINITIS 06/24/2019 ANAY MORALES MD, Ot K58 .9 IRRITABLE BOWEL SYNDROME WITHOUT DIARRHE 06/24/2019 ANAY MORALES MD Ot R29.708 NIHSS SCORE 8 06/24/2019 ANAY MORALES MD, Ot R29.810 FACIAL WEAKNESS 06/24/2019 ANAY MORALES MD Ot R47.89 OTHER SPEECH DISTURBANCES 06/24/2019 ANAY MORALES MD Ot Z85 .3 PERSONAL HISTORY OF MALIGNANT NEOPLASM O 06/24/2019 ANAY MORALES MD Ot Z87.891 PERSONAL HISTORY OF NICOTINE DEPENDENCE 06/24/2019 ANAY MORALES MD, Ot Z90.13 ACQUIRED ABSENCE OF BILATERAL BREASTS AN 06/24/2019 ANAY MORALES MD Ot Z92.21 PERSONAL HISTORY OF ANTINEOPLASTIC CHEMO 06/24/2019 ANAY MORALES MD, Ot Z92 .3 PERSONAL HISTORY OF IRRADIATION 07/27/2019 ADAIR MANCILLA MD Ot E11. 9 TYPE 2 DIABETES MELLITUS WITHOUT COMPLIC 07/27/2019 ADAIR MANCILLA MD Ot E66. 01 MORBID (SEVERE) OBESITY DUE TO EXCESS CA 07/27/2019 ADAIR MANCILLA MD Ot E78. 5 HYPERLIPIDEMIA, UNSPECIFIED 07/27/2019 ADAIR MANCILLA MD, Ot I11. 9 HYPERTENSIVE HEART DISEASE WITHOUT HEART 07/27/2019 ADAIR MANCILLA MD Ot I48. 0 PAROXYSMAL ATRIAL FIBRILLATION 07/27/2019 ADAIR MANCILLA MD, Ot I63. 9 CEREBRAL INFARCTION, UNSPECIFIED 07/27/2019 ADAIR MANCILLA MD, Ot Z68. 41 BODY MASS INDEX (BMI) 40.0-44.9, ADULT 07/27/2019 ADAIR MANCILLA MD Ot Z79. 82 FPC (CURRENT) USE OF ASPIRIN 07/27/2019 ADAIR MANCILLA MD, Ot Z80. 9 FAMILY HISTORY OF MALIGNANT NEOPLASM, UN 07/27/2019 ADAIR MANCILLA MD, Ot Z82. 49 FAMILY HX OF ISCHEM HEART DIS AND OTH DI 07/27/2019 ADAIR MANCILLA MD, Ot Z86. 73 PRSNL HX OF TIA (TIA), AND CEREB INFRC W 07/27/2019 ADAIR MANCILLA MD Ot Z87.891 PERSONAL HISTORY OF NICOTINE DEPENDENCE 08/05/2019 ADAIR MANCILLA MD Ot E11. 9 TYPE 2 DIABETES MELLITUS WITHOUT COMPLIC 08/05/2019 ADAIR MANCILLA MD Ot E66. 01 MORBID (SEVERE) OBESITY DUE TO EXCESS CA 08/05/2019 ADAIR MANCILLA MD Ot E78. 5 HYPERLIPIDEMIA, UNSPECIFIED 08/05/2019 ADAIR MANCILLA MD Ot I11. 9 HYPERTENSIVE HEART DISEASE WITHOUT HEART 08/05/2019 ADAIR MANCILLA MD Ot I48. 0 PAROXYSMAL ATRIAL FIBRILLATION 08/05/2019 ADAIR MANCILLA MD Ot I63. 9 CEREBRAL INFARCTION, UNSPECIFIED 08/05/2019 ADAIR MANCILLA MD Ot Z68. 41 BODY MASS INDEX (BMI) 40.0-44.9, ADULT 08/05/2019 ADAIR MANCILLA MD Ot Z79. 82 TOWBOAT PILOT (CURRENT) USE OF ASPIRIN 08/05/2019 ADAIR MANCILLA MD Ot Z80. 9 FAMILY HISTORY OF MALIGNANT NEOPLASM, UN 08/05/2019 ADAIR MANCILLA MD Ot Z82. 49 FAMILY HX OF ISCHEM HEART DIS AND OTH DI 08/05/2019 ADAIR MANCILLA MD Ot Z86. 73 PRSNL HX OF TIA (TIA), AND CEREB INFRC W 08/05/2019 ADAIR MANCILLA MD Ot Z87.891 PERSONAL HISTORY OF NICOTINE DEPENDENCE 08/12/2019 ADAIR MANCILLA MD Ot E11. 9 TYPE 2 DIABETES MELLITUS WITHOUT COMPLIC 08/12/2019 ADAIR MANCILLA MD Ot E66. 01 MORBID (SEVERE) OBESITY DUE TO EXCESS CA 08/12/2019 ADAIR MANCILLA MD Ot E78. 5 HYPERLIPIDEMIA, UNSPECIFIED 08/12/2019 ADAIR MANCILLA MD Ot I11. 9 HYPERTENSIVE HEART DISEASE WITHOUT HEART 08/12/2019 ADAIR MANCILLA MD Ot I48. 0 PAROXYSMAL ATRIAL FIBRILLATION 08/12/2019 ADAIR MANCILLA MD Ot I63. 9 CEREBRAL INFARCTION, UNSPECIFIED 08/12/2019 ADAIR MANCILLA MD Ot Z68. 41 BODY MASS INDEX (BMI) 40.0-44.9, ADULT 08/12/2019 ADAIR MANCILLA MD Ot Z79. 82 TOWBOAT PILOT (CURRENT) USE OF ASPIRIN 08/12/2019 ADAIR MANCILLA MD, Ot Z80. 9 FAMILY HISTORY OF MALIGNANT NEOPLASM, UN 08/12/2019 ADAIR MANCILLA MD, Ot Z82. 49 FAMILY HX OF ISCHEM HEART DIS AND OTH DI 08/12/2019 ADAIR MANCILLA MD Ot Z86. 73 PRSNL HX OF TIA (TIA), AND CEREB INFRC W 08/12/2019 ADAIR MANCILLA MD Ot Z87.891 PERSONAL HISTORY OF NICOTINE DEPENDENCE 08/12/2019 ADAIR MANCILLA MD Ot E11. 9 TYPE 2 DIABETES MELLITUS WITHOUT COMPLIC 08/12/2019 ADAIR MANCILLA MD Ot E66. 01 MORBID (SEVERE) OBESITY DUE TO EXCESS CA 08/12/2019 ADAIR MANCILLA MD Ot E78. 5 HYPERLIPIDEMIA, UNSPECIFIED 08/12/2019 ADAIR MANCILLA MD, Ot I11. 9 HYPERTENSIVE HEART DISEASE WITHOUT HEART 08/12/2019 ADAIR MANCILLA MD Ot I48. 0 PAROXYSMAL ATRIAL FIBRILLATION 08/12/2019 ADAIR MANCILLA MD, Ot I63. 9 CEREBRAL INFARCTION, UNSPECIFIED 08/12/2019 ADAIR MANCILLA MD Ot Z68. 41 BODY MASS INDEX (BMI) 40.0-44.9, ADULT 08/12/2019 ADAIR MANCILLA MD Ot Z79. 82 FPC (CURRENT) USE OF ASPIRIN 08/12/2019 ADAIR MANCILLA MD, Ot Z80. 9 FAMILY HISTORY OF MALIGNANT NEOPLASM, UN 08/12/2019 ADAIR MANCILLA MD, Ot Z82. 49 FAMILY HX OF ISCHEM HEART DIS AND OTH DI 08/12/2019 ADAIR MANCILLA MD, Ot Z86. 73 PRSNL HX OF TIA (TIA), AND CEREB INFRC W 08/12/2019 ADAIR MANCILLA MD Ot Z87.891 PERSONAL HISTORY OF NICOTINE DEPENDENCE 02/08/2020 MARIBELL SEPULVEDA MD Ot N20.0 CALCULUS OF KIDNEY 02/08/2020 MARIBELL SEPULVEDA MD Ot Z98.8 90 OTHER SPECIFIED POSTPROCEDURAL STATES 02/08/2020 POLLO JAMES MD, Ot C50.91 9 MALIGNANT NEOPLASM OF UNSP SITE OF UNSPE 02/08/2020 POLLO JAMES MD, Ot K57.30 DVRTCLOS OF LG INT W/O PERFORATION OR AB 02/08/2020 POLLO JAMES MD, Ot K58.9 IRRITABLE BOWEL SYNDROME WITHOUT DIARRHE 02/08/2020 POLLO JAMES MD, Ot K64.1 SECOND DEGREE HEMORRHOIDS 02/08/2020 POLLO JAMES MD, Ot K64.8 OTHER HEMORRHOIDS 02/08/2020 POLLO JAMES MD, Ot Z12.11 ENCOUNTER FOR SCREENING FOR MALIGNANT NE 02/08/2020 POLLO JAMES MD, Ot Z79.89 9 OTHER FPC (CURRENT) DRUG THERAPY 02/08/2020 POLLO JAMES MD, Ot Z80.0 FAMILY HISTORY OF MALIGNANT NEOPLASM OF 02/08/2020 POLLO JAMES MD, Ot Z80.3 FAMILY HISTORY OF MALIGNANT NEOPLASM OF 02/08/2020 POLLO JAMES MD, Ot Z80.42 FAMILY HISTORY OF MALIGNANT NEOPLASM OF 02/08/2020 POLLO JAMES MD, Ot Z82.49 FAMILY HX OF ISCHEM HEART DIS AND OTH DI 02/08/2020 POLLO JAEMS MD, Ot Z83.3 FAMILY HISTORY OF DIABETES MELLITUS 02/08/2020 POLLO JAMES MD, Ot Z87.89 1 PERSONAL HISTORY OF NICOTINE DEPENDENCE 02/08/2020 POLLO JAMES MD Ot Z01.81 8 ENCOUNTER FOR OTHER PREPROCEDURAL EXAMIN 02/15/2020 MARIBELL SEPULVEDA MD Ot N20.0 CALCULUS OF KIDNEY 02/15/2020 MARIBELL SEPULVEDA MD Ot Z98.8 90 OTHER SPECIFIED POSTPROCEDURAL STATES 02/15/2020 POLLO JAMES MD, Ot C50.91 9 MALIGNANT NEOPLASM OF UNSP SITE OF UNSPE 02/15/2020 POLLO JAMES MD, Ot K57.30 DVRTCLOS OF LG INT W/O PERFORATION OR AB 02/15/2020 POLLO JAMES MD, Ot K58.9 IRRITABLE BOWEL SYNDROME WITHOUT DIARRHE 02/15/2020 POLLO JAMES MD, Ot K64.1 SECOND DEGREE HEMORRHOIDS 02/15/2020 POLLO JAMES MD, Ot K64.8 OTHER HEMORRHOIDS 02/15/2020 POLLO JAMES MD, Ot Z12.11 ENCOUNTER FOR SCREENING FOR MALIGNANT NE 02/15/2020 POLLO JAMES MD, Ot Z79.89 9 OTHER TOWBOAT PILOT (CURRENT) DRUG THERAPY 02/15/2020 POLLO JAMES MD, Ot Z80.0 FAMILY HISTORY OF MALIGNANT NEOPLASM OF 02/15/2020 POLLO JAMES MD, Ot Z80.3 FAMILY HISTORY OF MALIGNANT NEOPLASM OF 02/15/2020 POLLO JAMES MD, Ot Z80.42 FAMILY HISTORY OF MALIGNANT NEOPLASM OF 02/15/2020 POLLO JAMES MD, Ot Z82.49 FAMILY HX OF ISCHEM HEART DIS AND OTH DI 02/15/2020 POLLO JAMES MD, Ot Z83.3 FAMILY HISTORY OF DIABETES MELLITUS 02/15/2020 POLLO JAMES MD, Ot Z87.89 1 PERSONAL HISTORY OF NICOTINE DEPENDENCE 02/15/2020 POLLO JAMES MD, Ot Z01.81 8 ENCOUNTER FOR OTHER PREPROCEDURAL EXAMIN 02/15/2020 LOGAN CARTER Ot I63.9 CEREBRAL INFARCTION, UNSPECIFIED 02/16/2020 LOGAN CARTER Ot I63.9 CEREBRAL INFARCTION, UNSPECIFIED Procedures Code Description Performed By Per formed On [id number] IN TRODUCE OT THROMBOLYTIC IN PERIPH VEI 06/22/2019 Results Test Result Range Complete urinalysis with reflex to cultu re - 01/08/19 18:27 Urine color determination YELLOW NRG Urine clarity determination VERY CLOUDY NRG Urine pH measurement by test strip 5 5-9 Specific gravity of urine by test strip 1.020 1.016-1.022 Urine protein assay by test strip, semi-quantitative 2+ NEGATIVE Urine glucose detection by automated test strip NE GATIVE NEGATIVE Erythrocytes detection in urine sediment by light micr oscopy 3+ NEGATIVE Urine ketones detection by automated test strip 4+ NEGATIVE Urine nitrite detection by test strip NEGATIVE NEGATIVE Urine total bilirubin detection by test strip NEGA TIVE NEGATIVE Urine urobilinogen measurement by automated test strip (mass/volume) NORMAL NORMAL Urine leukocyte esterase detection by dipstick 1+ NEGATIVE Automated urine sediment erythrocyte cou nt by microscopy (number/high power field) [HPF] NRG Automated urine sediment leukocyte count by microscopy (number/high power field) [HPF] NRG Bacteria detection in urine sediment by light microsco py MODERATE NRG Squamous epithelial cells detection in u rine sediment by light microscopy 10-25 NRG Crystals detection in urine sediment by light microsco py NONE NRG Casts detection in urine sediment by light microscopy NONE NRG Mucus detection in urine sediment by light microscopy MODERATE NRG Complete urinalysis with reflex to culture YES NRG Bacterial urine culture - 01/08/19 18:27 Bacterial urine culture 3 OR MORE NRG COLONY COUNT >100,000/ML NRG FTX;REPORTABLE (GRAM POSITIVE) SUGGESTING PROBABLE NRG FREE TEXT ENTRY 2 COLLECTION CONTAMINATION WITH SK IN NRG FREE TEXT ENTRY 3 OZZIE. NO SUSCEPTIBILITY PERFORM ED NRG Complete blood count (CBC) with automate d white blood cell (WBC) differential - 01/08/19 18:44 Blood leukocytes automated count (number/volume) 17.4 10*3/uL 4.3-11.0 Blood erythrocytes automated count (number/volume) 5.16 10*6/uL 4.35-5.85 Venous blood hemoglobin measurement (mass/volume) 15.2 g/dL 11.5-16.0 Blood hematocrit (volume fraction) 45 % 35-52 Automated erythrocyte mean corpuscular volume 87 [ foz_us] 80-99 Automated erythrocyte mean corpuscular h emoglobin (mass per erythrocyte) 30 pg 25-34 Automated erythrocyte mean corpuscular h emoglobin concentration measurement (mass/volume) 34 g/dL 32-36 Automated erythrocyte distribution width ratio 14. 6 % 10.0- 14.5 Automated blood platelet count (count/volume) 259 10*3/uL 130-400 Automated blood platelet mean volume measurement 10.2 [foz_us] 7.4-10.4 Automated blood neutrophils/100 leukocytes 84 % 42-75 Automated blood lymphocytes/100 leukocytes 9 % 12-44 Blood monocytes/100 leukocytes 7 % 0-12 Automated blood eosinophils/100 leukocytes 0 % 0-10 Automated blood basophils/100 leukocytes 0 % 0-10 Blood neutrophils automated count (number/volume) 14.5 10*3 1.8-7.8 Blood lymphocytes automated count (number/volume) 1.6 10*3 1.0-4.0 Blood monocytes automated count (number/volume) 1. 2 10*3 0.0-1.0 Automated eosinophil count 0.0 10*3/uL 0 .0-0.3 Automated blood basophil count (count/volume) 0.0 10*3/uL 0.0-0.1 Blood manual differential performed dete ction - 01/08/19 18:44 Blood monocytes/100 leukocytes 7 % NRG Manual blood segmented neutrophils/100 leukocytes 82 % NRG Blood band neutrophils/100 leukocytes 0 % NRG Manual blood lymphocytes/100 leukocytes 11 % NRG Manual eosinophils/100 leukocytes in nose 0 % NRG Manual blood basophils/100 leukocytes 0 % NRG Blood erythrocyte morphology finding identification NORMAL NR Comprehensive metabolic panel - 01/08/19 18:44 Serum or plasma sodium measurement (moles/volume) 137 mmol/L 135-145 Serum or plasma potassium measurement (moles/volume) 3.5 mmol/L 3.6-5.0 Serum or plasma chloride measurement (moles/volume) 100 mmol/L 98-107 Carbon dioxide 24 mmol/L 21-32 Serum or plasma anion gap determination (moles/volume) 13 mmol/L 5-14 Serum or plasma urea nitrogen measurement (mass/volume ) 11 mg/dL 7-18 Serum or plasma creatinine measurement (mass/volume) 0.78 mg/dL 0.60-1.30 Serum or plasma urea nitrogen/creatinine mass ratio 14 NRG Serum or plasma creatinine measurement w ith calculation of estimated glomerular filtration rate > NRG Serum or plasma glucose measurement (mass/volume) 130 mg/dL 70-105 Serum or plasma calcium measurement (mass/volume) 10.2 mg/dL 8.5-10.1 Serum or plasma total bilirubin measurement (mass/volu me) 1.0 mg/dL 0.1-1.0 Serum or plasma alkaline phosphatase eitan surement (enzymatic activity/volume) 84 U/L 40-136 Serum or plasma aspartate aminotransfera se measurement (enzymatic activity/volume) 21 U/L 5-34 Serum or plasma alanine aminotransferase measurement (enzymatic activity/volume) 19 U/L 0-55 Serum or plasma protein measurement (mass/volume) 8.4 g/dL 6.4-8.2 Serum or plasma albumin measurement (mass/volume) 4.6 g/dL 3.2-4.5 Serum or plasma amylase measurement (enz ymatic activity/volume) - 01/08/19 18:44 Serum or plasma amylase measurement (enzymatic activit y/volume) 42 U/L 25-125 Lipase - 01/08/19 18:44 Lipase 48 U/L 8-78 Methicillin resistant Staphylococcus aur eus (MRSA) screening culture - 01/08/19 23:20 Methicillin resistant Staphylococcus aureus (MRSA) scr eening culture NEG NRG Complete blood count (CBC) with automate d white blood cell (WBC) differential - 01/09/19 04:14 Blood leukocytes automated count (number/volume) 14.3 10*3/uL 4.3-11.0 Blood erythrocytes automated count (number/volume) 4.56 10*6/uL 4.35-5.85 Venous blood hemoglobin measurement (mass/volume) 13.4 g/dL 11.5-16.0 Blood hematocrit (volume fraction) 40 % 35-52 Automated erythrocyte mean corpuscular volume 87 [ foz_us] 80-99 Automated erythrocyte mean corpuscular h emoglobin (mass per erythrocyte) 29 pg 25-34 Automated erythrocyte mean corpuscular h emoglobin concentration measurement (mass/volume) 34 g/dL 32-36 Automated erythrocyte distribution width ratio 14. 7 % 10.0- 14.5 Automated blood platelet count (count/volume) 211 10*3/uL 130-400 Automated blood platelet mean volume measurement 10.5 [foz_us] 7.4-10.4 Automated blood neutrophils/100 leukocytes 83 % 42-75 Automated blood lymphocytes/100 leukocytes 8 % 12-44 Blood monocytes/100 leukocytes 8 % 0-12 Automated blood eosinophils/100 leukocytes 0 % 0-10 Automated blood basophils/100 leukocytes 0 % 0-10 Blood neutrophils automated count (number/volume) 11.9 10*3 1.8-7.8 Blood lymphocytes automated count (number/volume) 1.2 10*3 1.0-4.0 Blood monocytes automated count (number/volume) 1. 2 10*3 0.0-1.0 Automated eosinophil count 0.0 10*3/uL 0 .0-0.3 Automated blood basophil count (count/volume) 0.0 10*3/uL 0.0-0.1 Comprehensive metabolic panel - 01/09/19 04:14 Serum or plasma sodium measurement (moles/volume) 137 mmol/L 135-145 Serum or plasma potassium measurement (moles/volume) 3.3 mmol/L 3.6-5.0 Serum or plasma chloride measurement (moles/volume) 103 mmol/L 98-107 Carbon dioxide 22 mmol/L 21-32 Serum or plasma anion gap determination (moles/volume) 12 mmol/L 5-14 Serum or plasma urea nitrogen measurement (mass/volume ) 9 mg/dL 7-18 Serum or plasma creatinine measurement (mass/volume) 0.64 mg/dL 0.60-1.30 Serum or plasma urea nitrogen/creatinine mass ratio 14 NRG Serum or plasma creatinine measurement w ith calculation of estimated glomerular filtration rate > NRG Serum or plasma glucose measurement (mass/volume) 135 mg/dL 70-105 Serum or plasma calcium measurement (mass/volume) 8.8 mg/dL 8.5-10.1 Serum or plasma total bilirubin measurement (mass/volu me) 1.0 mg/dL 0.1-1.0 Serum or plasma alkaline phosphatase eitan surement (enzymatic activity/volume) 68 U/L 40-136 Serum or plasma aspartate aminotransfera se measurement (enzymatic activity/volume) 14 U/L 5-34 Serum or plasma alanine aminotransferase measurement (enzymatic activity/volume) 13 U/L 0-55 Serum or plasma protein measurement (mass/volume) 6.8 g/dL 6.4-8.2 Serum or plasma albumin measurement (mass/volume) 3.8 g/dL 3.2-4.5 CALCIUM CORRECTED 9.0 mg/dL 8.5-10.1 Methicillin resistant Staphylococcus aur eus (MRSA) screening culture - 01/11/19 07:15 Methicillin resistant Staphylococcus aureus (MRSA) scr eening culture NEG NRG Capillary blood glucose measurement by g lucometer (mass/volume) - 04/15/19 11:31 Capillary blood glucose measurement by glucometer (mas s/volume) 106 mg/dL 70-110 Complete blood count (CBC) with automate d white blood cell (WBC) differential - 06/22/19 16:55 Blood leukocytes automated count (number/volume) 8.8 10*3/uL 4.3-11.0 Blood erythrocytes automated count (number/volume) 4.96 10*6/uL 4.35-5.85 Venous blood hemoglobin measurement (mass/volume) 14.2 g/dL 11.5-16.0 Blood hematocrit (volume fraction) 43 % 35-52 Automated erythrocyte mean corpuscular volume 88 [ foz_us] 80-99 Automated erythrocyte mean corpuscular h emoglobin (mass per erythrocyte) 29 pg 25-34 Automated erythrocyte mean corpuscular h emoglobin concentration measurement (mass/volume) 33 g/dL 32-36 Automated erythrocyte distribution width ratio 14. 6 % 10.0- 14.5 Automated blood platelet count (count/volume) 238 10*3/uL 130-400 Automated blood platelet mean volume measurement 9.9 [foz_us] 7.4-10.4 Automated blood neutrophils/100 leukocytes 77 % 42-75 Automated blood lymphocytes/100 leukocytes 16 % 12-44 Blood monocytes/100 leukocytes 6 % 0-12 Automated blood eosinophils/100 leukocytes 1 % 0-10 Automated blood basophils/100 leukocytes 0 % 0-10 Blood neutrophils automated count (number/volume) 6.8 10*3 1.8-7.8 Blood lymphocytes automated count (number/volume) 1.4 10*3 1.0-4.0 Blood monocytes automated count (number/volume) 0. 6 10*3 0.0-1.0 Automated eosinophil count 0.1 10*3/uL 0 .0-0.3 Automated blood basophil count (count/volume) 0.0 10*3/uL 0.0-0.1 PT panel in platelet poor plasma by coag ulation assay - 06/22/19 16:55 Prothrombin time (PT) in platelet poor plasma by coagu lation assay 13.9 s 12.2-14.7 INR in platelet poor plasma or blood by coagulation as say 1.0 0.8-1.4 Activated partial thromboplastin time (a PTT) in platelet poor plasma bycoagulation assay - 06/22/19 16:55 Activated partial thromboplastin time (a PTT) in platelet poor plasma bycoagulation assay 30 s 24-35 Fibrin D-dimer FEU measurement in platel et poor plasma (mass/volume) - 06/22/19 16:55 Fibrin D-dimer FEU measurement in platelet poor plasma (mass/volume) <= ug/mL 0.00-0.49 Comprehensive metabolic panel - 06/22/19 16:55 Serum or plasma sodium measurement (moles/volume) 139 mmol/L 135-145 Serum or plasma potassium measurement (moles/volume) 3.5 mmol/L 3.6-5.0 Serum or plasma chloride measurement (moles/volume) 103 mmol/L 98-107 Carbon dioxide 25 mmol/L 21-32 Serum or plasma anion gap determination (moles/volume) 11 mmol/L 5-14 Serum or plasma urea nitrogen measurement (mass/volume ) 17 mg/dL 7-18 Serum or plasma creatinine measurement (mass/volume) 0.72 mg/dL 0.60-1.30 Serum or plasma urea nitrogen/creatinine mass ratio 24 NRG Serum or plasma creatinine measurement w ith calculation of estimated glomerular filtration rate > NRG Serum or plasma glucose measurement (mass/volume) 111 mg/dL 70-105 Serum or plasma calcium measurement (mass/volume) 9.6 mg/dL 8.5-10.1 Serum or plasma total bilirubin measurement (mass/volu me) 0.5 mg/dL 0.1-1.0 Serum or plasma alkaline phosphatase eitan surement (enzymatic activity/volume) 98 U/L 40-136 Serum or plasma aspartate aminotransfera se measurement (enzymatic activity/volume) 21 U/L 5-34 Serum or plasma alanine aminotransferase measurement (enzymatic activity/volume) 16 U/L 0-55 Serum or plasma protein measurement (mass/volume) 8.1 g/dL 6.4-8.2 Serum or plasma albumin measurement (mass/volume) 4.8 g/dL 3.2-4.5 Serum or plasma troponin i.cardiac measu rement (mass/volume) - 06/22/19 16:55 Serum or plasma troponin i.cardiac measurement (mass/v olume) < ng/mL <0.028 Complete urinalysis with reflex to cultu re - 06/22/19 18:30 Urine color determination YELLOW NRG Urine clarity determination CLEAR NR G Urine pH measurement by test strip 5.5 5-9 Specific gravity of urine by test strip <= 1.016-1.022 Urine protein assay by test strip, semi-quantitative NEGATIVE NEGATIVE Urine glucose detection by automated test strip NE GATIVE NEGATIVE Erythrocytes detection in urine sediment by light micr oscopy 2+ NEGATIVE Urine ketones detection by automated test strip 1+ NEGATIVE Urine nitrite detection by test strip NEGATIVE NEGATIVE Urine total bilirubin detection by test strip NEGA TIVE NEGATIVE Urine urobilinogen measurement by automated test strip (mass/volume) 0.2 mg/dL < = 1.0 Urine leukocyte esterase detection by dipstick NEG ATIVE NEGATIVE Automated urine sediment erythrocyte cou nt by microscopy (number/high power field) [HPF] NRG Automated urine sediment leukocyte count by microscopy (number/high power field) NONE NRG Bacteria detection in urine sediment by light microsco py TRACE NRG Squamous epithelial cells detection in u rine sediment by light microscopy 2-5 NRG Crystals detection in urine sediment by light microsco py NONE NRG Casts detection in urine sediment by light microscopy NONE NRG Mucus detection in urine sediment by light microscopy NEGATIVE NRG Complete urinalysis with reflex to culture NO NRG Methicillin resistant Staphylococcus aur eus (MRSA) screening culture - 06/22/19 19:00 Methicillin resistant Staphylococcus aureus (MRSA) scr eening culture NEG NRG Complete blood count (CBC) with automate d white blood cell (WBC) differential - 06/23/19 03:20 Blood leukocytes automated count (number/volume) 9.8 10*3/uL 4.3-11.0 Blood erythrocytes automated count (number/volume) 4.60 10*6/uL 4.35-5.85 Venous blood hemoglobin measurement (mass/volume) 13.4 g/dL 11.5-16.0 Blood hematocrit (volume fraction) 40 % 35-52 Automated erythrocyte mean corpuscular volume 87 [ foz_us] 80-99 Automated erythrocyte mean corpuscular h emoglobin (mass per erythrocyte) 29 pg 25-34 Automated erythrocyte mean corpuscular h emoglobin concentration measurement (mass/volume) 34 g/dL 32-36 Automated erythrocyte distribution width ratio 14. 5 % 10.0- 14.5 Automated blood platelet count (count/volume) 225 10*3/uL 130-400 Automated blood platelet mean volume measurement 10.4 [foz_us] 7.4-10.4 Automated blood neutrophils/100 leukocytes 71 % 42-75 Automated blood lymphocytes/100 leukocytes 20 % 12-44 Blood monocytes/100 leukocytes 7 % 0-12 Automated blood eosinophils/100 leukocytes 2 % 0-10 Automated blood basophils/100 leukocytes 0 % 0-10 Blood neutrophils automated count (number/volume) 7.0 10*3 1.8-7.8 Blood lymphocytes automated count (number/volume) 1.9 10*3 1.0-4.0 Blood monocytes automated count (number/volume) 0. 7 10*3 0.0-1.0 Automated eosinophil count 0.2 10*3/uL 0 .0-0.3 Automated blood basophil count (count/volume) 0.0 10*3/uL 0.0-0.1 Whole blood basic metabolic panel - 06/10 11/26 03:20 Serum or plasma sodium measurement (moles/volume) 142 mmol/L 135-145 Serum or plasma potassium measurement (moles/volume) 3.5 mmol/L 3.6-5.0 Serum or plasma chloride measurement (moles/volume) 107 mmol/L 98-107 Carbon dioxide 23 mmol/L 21-32 Serum or plasma anion gap determination (moles/volume) 12 mmol/L 5-14 Serum or plasma urea nitrogen measurement (mass/volume ) 12 mg/dL 7-18 Serum or plasma creatinine measurement (mass/volume) 0.63 mg/dL 0.60-1.30 Serum or plasma urea nitrogen/creatinine mass ratio 19 NRG Serum or plasma creatinine measurement w ith calculation of estimated glomerular filtration rate > NRG Serum or plasma glucose measurement (mass/volume) 112 mg/dL 70-105 Serum or plasma calcium measurement (mass/volume) 9.3 mg/dL 8.5-10.1 Serum or plasma phosphate measurement (m ass/volume) - 06/23/19 03:20 Serum or plasma phosphate measurement (mass/volume) 3.8 mg/dL 2.3-4.7 Magnesium - 06/23/19 03:20 Magnesium 1.9 mg/dL 1.6-2.4 Lipid 1996 panel - 06/23/19 03:20 Serum or plasma triglyceride measurement (mass/volume) 139 mg/dL <150 Serum or plasma cholesterol measurement (mass/volume) 223 mg/dL < 200 Serum or plasma cholesterol in HDL measurement (mass/v olume) 49 mg/dL 40-60 Cholesterol in LDL [mass/volume] in serum or plasma by direct assay 169 mg/dL 1-129 Serum or plasma cholesterol in VLDL measurement (mass/ volume) 28 mg/dL 5-40 Capillary blood glucose measurement by g lucometer (mass/volume) - 06/23/19 13:20 Capillary blood glucose measurement by glucometer (mas s/volume) 152 mg/dL 70-110 Complete blood count (CBC) with automate d white blood cell (WBC) differential - 06/24/19 03:00 Blood leukocytes automated count (number/volume) 9.0 10*3/uL 4.3-11.0 Blood erythrocytes automated count (number/volume) 4.60 10*6/uL 4.35-5.85 Venous blood hemoglobin measurement (mass/volume) 13.6 g/dL 11.5-16.0 Blood hematocrit (volume fraction) 40 % 35-52 Automated erythrocyte mean corpuscular volume 88 [ foz_us] 80-99 Automated erythrocyte mean corpuscular h emoglobin (mass per erythrocyte) 30 pg 25-34 Automated erythrocyte mean corpuscular h emoglobin concentration measurement (mass/volume) 34 g/dL 32-36 Automated erythrocyte distribution width ratio 14. 4 % 10.0- 14.5 Automated blood platelet count (count/volume) 217 10*3/uL 130-400 Automated blood platelet mean volume measurement 10.4 [foz_us] 7.4-10.4 Automated blood neutrophils/100 leukocytes 70 % 42-75 Automated blood lymphocytes/100 leukocytes 20 % 12-44 Blood monocytes/100 leukocytes 7 % 0-12 Automated blood eosinophils/100 leukocytes 2 % 0-10 Automated blood basophils/100 leukocytes 1 % 0-10 Blood neutrophils automated count (number/volume) 6.4 10*3 1.8-7.8 Blood lymphocytes automated count (number/volume) 1.8 10*3 1.0-4.0 Blood monocytes automated count (number/volume) 0. 6 10*3 0.0-1.0 Automated eosinophil count 0.2 10*3/uL 0 .0-0.3 Automated blood basophil count (count/volume) 0.1 10*3/uL 0.0-0.1 Whole blood basic metabolic panel - 06/10 12/26 03:00 Serum or plasma sodium measurement (moles/volume) 142 mmol/L 135-145 Serum or plasma potassium measurement (moles/volume) 3.7 mmol/L 3.6-5.0 Serum or plasma chloride measurement (moles/volume) 107 mmol/L 98-107 Carbon dioxide 21 mmol/L 21-32 Serum or plasma anion gap determination (moles/volume) 14 mmol/L 5-14 Serum or plasma urea nitrogen measurement (mass/volume ) 14 mg/dL 7-18 Serum or plasma creatinine measurement (mass/volume) 0.64 mg/dL 0.60-1.30 Serum or plasma urea nitrogen/creatinine mass ratio 22 NRG Serum or plasma creatinine measurement w ith calculation of estimated glomerular filtration rate > NRG Serum or plasma glucose measurement (mass/volume) 111 mg/dL 70-105 Serum or plasma calcium measurement (mass/volume) 9.6 mg/dL 8.5-10.1 Serum or plasma phosphate measurement (m ass/volume) - 06/24/19 03:00 Serum or plasma phosphate measurement (mass/volume) 4.4 mg/dL 2.3-4.7 Magnesium - 06/24/19 03:00 Magnesium 1.9 mg/dL 1.6-2.4 Complete urinalysis with reflex to cultu re - 07/27/19 08:37 Urine color determination YELLOW NRG Urine clarity determination SL CLOUDY N RG Urine pH measurement by test strip 5.5 5-9 Specific gravity of urine by test strip >= 1.016-1.022 Urine protein assay by test strip, semi-quantitative NEGATIVE NEGATIVE Urine glucose detection by automated test strip NE GATIVE NEGATIVE Erythrocytes detection in urine sediment by light micr oscopy TRACE-I NEGATIVE Urine ketones detection by automated test strip NE GATIVE NEGATIVE Urine nitrite detection by test strip NEGATIVE NEGATIVE Urine total bilirubin detection by test strip NEGA TIVE NEGATIVE Urine urobilinogen measurement by automated test strip (mass/volume) 0.2 mg/dL < = 1.0 Urine leukocyte esterase detection by dipstick 1+ NEGATIVE Automated urine sediment erythrocyte cou nt by microscopy (number/high power field) RARE NRG Automated urine sediment leukocyte count by microscopy (number/high power field) [HPF] NRG Bacteria detection in urine sediment by light microsco py MODERATE NRG Squamous epithelial cells detection in u rine sediment by light microscopy 10-25 NRG Crystals detection in urine sediment by light microsco py PRESENT NRG Casts detection in urine sediment by light microscopy NONE NRG Mucus detection in urine sediment by light microscopy NEGATIVE NRG Complete urinalysis with reflex to culture YES NRG Uric acid crystals detection in urine sediment by ligh t microscopy RARE NRG Bacterial urine culture - 07/27/19 08:37 Bacterial urine culture 3 OR MORE NRG COLONY COUNT 40,000 CFU/ML NRG FTX;REPORTABLE GRAM POSITIVE ISOLATES; SUGGESTING NRG FREE TEXT ENTRY 2 PROBABLE COLLECTION CONTAMINATIO N WITH NRG FREE TEXT ENTRY 3 SKIN OZZIE. NO SUSCEPTIBILITY PE RFORMED. NRG Automated blood complete blood count (he mogram) panel - 07/27/19 08:48 Blood leukocytes automated count (number/volume) 8.6 10*3/uL 4.3-11.0 Blood erythrocytes automated count (number/volume) 4.80 10*6/uL 4.35-5.85 Venous blood hemoglobin measurement (mass/volume) 13.9 g/dL 11.5-16.0 Blood hematocrit (volume fraction) 42 % 35-52 Automated erythrocyte mean corpuscular volume 88 [ foz_us] 80-99 Automated erythrocyte mean corpuscular h emoglobin (mass per erythrocyte) 29 pg 25-34 Automated erythrocyte mean corpuscular h emoglobin concentration measurement (mass/volume) 33 g/dL 32-36 Automated erythrocyte distribution width ratio 14. 5 % 10.0- 14.5 Automated blood platelet count (count/volume) 216 10*3/uL 130-400 Automated blood platelet mean volume measurement 10.2 [foz_us] 7.4-10.4 PT panel in platelet poor plasma by coag ulation assay - 07/27/19 08:48 Prothrombin time (PT) in platelet poor plasma by coagu lation assay 14.5 s 12.2-14.7 INR in platelet poor plasma or blood by coagulation as say 1.1 0.8-1.4 Activated partial thromboplastin time (a PTT) in platelet poor plasma bycoagulation assay - 07/27/19 08:48 Activated partial thromboplastin time (a PTT) in platelet poor plasma bycoagulation assay 30 s 24-35 Methicillin resistant Staphylococcus aur eus (MRSA) screening culture - 07/27/19 08:48 Methicillin resistant Staphylococcus aureus (MRSA) scr eening culture NEG NRG Encounters ACCT No. Visit Date/Time Discharge Status Pt. Type Provider Facility Loc./Unit Complaint [id number] 02/15/2020 08:10:00 23:59:59 CLS Outpatient JAMI CARTER [facility] CARD CVA,DM,HTN [id number] 07/27/2019 07:54:00 10:36:00 DIS Outpatient ADAIR MANCILLA MD [facility] CATH CRYPTOGENIC CVA,DIAST. DYSFUNCTION,DM,HTN [id number] 06/22/2019 18:18:00 16:33:00 DIS Inpatient ANAY MORALES MD [facility] ICU CVA,L SIDED WEAKNESS [id number] 04/15/2019 11:11:00 23:59:59 CLS Outpatient POLLO JAMES MD [facility] ENDO SCREENING [id number] 04/13/2019 11:30:00 23:59:59 CLS Outpatient POLLO JAMES MD [facility] PREOP COLONOSCOPY [id number] 01/24/2019 12:29:00 23:59:59 CLS Outpatient MARIBELL SEPULVEDA MD [facility] RAD RENAL STONES [id number] 01/11/2019 06:47:00 11:00:00 DIS Outpatient MARIBELL SEPULVEDA MD [facility] RIGHT RENAL STONE [id number] 01/10/2019 11:17:00 15:33:00 DIS Outpatient MARIBELL SEPULVEDA MD [facility] PREOP RIGHT RENAL STONE [id number] 01/08/2019 21:30:00 11:00:00 DIS Outpatient POLLO JAMES MD [facility] ACUTE APPENDICITIS;KIDN EY STONE;UTI [id number] 02/20/2020 09:00:00 P BLANCA MANCILLA MD, ADAIR [facility] CATH ABN STRESS TEST,CP,CVA,HTN,H LP
[2020-02-20 07:38] LABS: RED CELL DISTRIBUTION WIDTH 14.2 % (10.0-14.5); WHITE BLOOD COUNT 7.8 10^3/uL (4.3-11.0)
[2020-02-20] MEDS ORDERED: ATOR40TA70 PO (07:40)
[2020-02-20] MEDS ORDERED: MULT-1136 PO (07:40)
[2020-02-20] MEDS ORDERED: ASPI-808 PO (07:40)
[2020-02-20] MEDS ORDERED: LISI-552 PO (07:40)
[2020-02-20] MEDS ORDERED: NAPR-1033 PO (07:40)
[2020-02-20 07:51] LABS: INR 0.9 (0.8-1.4); PROTHROMBIN TIME PATIENT 12.7 SEC (12.2-14.7)
--- NOTE | 2020-02-20 07:54 | Diagnostic Imaging Report ---
HISTORY: Abnormal stress test and chest pain. COMPARISON: 07/27/2019 TECHNIQUE: Frontal view of the chest. FINDINGS: Lung volumes are large. No focal consolidation is seen. There is no pleural effusion or pneumothorax. The cardiac silhouette is normal in size. A surgical coder device is noted. IMPRESSION: 1. Large lung volumes with no acute pulmonary abnormality seen. Dictated by: Dictated on workstation # [id number]
[2020-02-20 07:57] LABS: ALANINE AMINOTRANSFERASE 26 U/L (0-55); ALBUMIN 4.4 GM/DL (3.2-4.5); ALKALINE PHOSPHATASE 111 U/L (40-136); BILIRUBIN,TOTAL 0.5 MG/DL (0.1-1.0); BUN/CREATININE RATIO 18; CALCIUM 9.4 MG/DL (8.5-10.1); CARBON DIOXIDE 22 MMOL/L (21-32); CHLORIDE 106 MMOL/L (98-107); CREATININE SERUM 0.76 MG/DL (0.60-1.30); GFR ESTIMATED > 60; GLUCOSE 143 MG/DL (70-105); POTASSIUM 3.5 MMOL/L (3.6-5.0); SODIUM 143 MMOL/L (135-145); TOTAL PROTEIN 7.9 GM/DL (6.4-8.2)
[2020-02-20] MEDS ORDERED: fentaNYL INJECTION 100 MCG/2 ML AMP ONE ×2 (09:09→09:18)
[2020-02-20] MEDS ORDERED: MIDAZOLAM 5 MG/5 ML (VERSED) VIAL ONE ×2 (09:09→09:18)
--- NOTE | 2020-02-20 09:13 | Cardiac Procedure Note-CS/ASA ---
Pre-Procedure Note Pre-Op Procedure Note H&P Reviewed The H&P was reviewed, patient examined and no changes noted. Date H&P Reviewed: Feb 20, 2020 Time H&P Reviewed: 09:13 Conscious Sedation Pre-Proced Time 09:13 ASA Score 3 For ASA 3 and 4: Consider anesthesia and medical clearance. Also, for patients with a history of failed moderate sedation consider anesthesia. Airway Lungs Heart ASA score ASA 1: a normal healthy patient ASA 2: a patient with a mild systemic disease (mid diabetes, controlled hypertension, obesity x ASA 3: a patient with a severe systemic disease that limits activity (angina, COPD, prior Myocardial infarction) ASA 4: a patient with an incapacitating disease that is a constant threat to life (CHF, renal failure) ASA 5: a moribund patient not expected to survive 24 hrs. (ruptured aneurysm) ASA 6: a declared brain- patient whose organs are being harvested. For emergent operations, add the letter E after the classification Mallampati Classification Grade 3 Sedation Plan Analgesia, Amnesia, Plan communicated to team members, Discussed options with patient/fam, Discussed risks with patient/fam The patient is an appropriate candidate to undergo the planned procedure, sedation, and anesthesia. The patient immediately re-assessed prior to indication. ADAIR MANCILLA MD Feb 20, 2020 09:13
[2020-02-20] MEDS ORDERED: HEParin 1000 UNIT/ML (10ML VIAL) FOR BOLUS ONE (09:49)
[2020-02-20] MEDS ORDERED: ADENOSINE 3 MG/1 ML (ADENOSCAN) 30ML VIAL IV ONE (09:49)
[2020-02-20] MEDS ORDERED: NITRO DRIP 25000 MCG/D5W 0 ML IV ONE (09:49)
--- NOTE | 2020-02-20 10:08 | Discharge Inst-Post CATH ---
Discharge Inst-CATH/EP Problems Reviewed?: Yes Post Cardiac Cath/EP D/C Inst Follow Up/Plan Appointment with Dr. Alves's office in 4 weeks <b>CARDIAC CATH/EP PROCEDURE DISCHARGE INSTRUCTIONS</b> ACTIVITY * Go Home directly and rest. * Limit activity of the leg (or wrist if it was used) for 7 days including aerobics, swimming, jogging, bicycling, etc. * Restrict stair-climbing for 7 days if possible, if not, climb up with your non-cath leg, then bring together on the same step. * Avoid lifting, pushing, pulling or excessive movement of the affected extremity for 7 days. * Customary sexual activity may be resumed after 2 days-use caution not to use a position that strains or causes pain to the affected extremity. * No driving for 24 hours. * NO SMOKING. * Avoid straining for bowel movements for 7 days. * Gentle walking on level ground is allowed. * Returning to work will depend on the type of procedure and the results. Your doctor will discuss this with you. CALL YOUR DOCTOR FOR ANY OF THE FOLLOWING: *If bleeding from the puncture site occurs- Apply gentle pressure to site with clean cloth and call your doctor or EMS. * If a knot or lump forms under the skin, increases in size, or causes pain. * If bruising appears to be worsening or moving further down your leg instead of disappearing. * Temperature above 101 F. CARE OF YOUR GROIN INCISION; * Bruising or purple discoloration of the skin near the puncture site is common. * You may shower only, no bathtub bathing for 5 days. Be careful to avoid slipping as your leg may feel stiff. * If a closure device was used on your femoral artery, please see the attached guide regarding care of the device and your leg. * Leave dressing on FOR 24 hours. CARE OF YOUR WRIST INCISION; * Bruising or purple discoloration of the skin near the puncture site is common. * You may shower. * DO NOT submerge wrist. * Leave dressing on FOR 24 hours. ADAIR ALVES MD Feb 20, 2020 10:08
--- NOTE | 2020-02-20 10:13 | Cardiac Cath Report ---
Cardiac Cath Report Physician (s)/Firmware Software Verification Engineer (s) Physician ADAIR MANCILLA MD Pre-Procedure Diagnosis Pre-Procedure Diagnosis: Coronary artery disease Post-Procedure Note Procedure Start Date: Feb 20, 2020 Name of Procedure: Left heart catheterization FFR to LAD Findings/Procedure Note PROCEDURE NOTE: 64-year-old lady with history of hypertension, hyperlipidemia and CVA. Had an abnormal stress test scheduled for cardiac catheterization possible PTCA. After explaining the procedure to the patient, all pros and cons were explained, all questions were answered. The patient signed the consent and then she was placed on the cardiac catheterization laboratory. Groin was prepped SL fashion local anesthesia was used. Sheath placed in the right femoral artery. Capo right and left catheter were used to access the coronary system. Pigtail was used to access the left ventricular cavity. Left ventriculogram was not done, pressure was measured Patient had a lesion in the mid LAD that was suspicious, 6000 units of heparin were given FL guide was used and pressure wire was advanced through the LAD and proximal distally baseline FFR was 0.92. Patient was started on adenosine drip, after 2 minutes her FFR was 0.88 at the lowest. Wire was removed angiogram showed no complication, ACT was 188. At the end of the procedure the sheath was removed. Closure device was used FINDINGS: Hemodynamics LV 158/14, end-diastolic pressure of 14 Aorta 156/80 mean of 112 ANATOMY: Left Main is free of obstructive disease Left Anterior Descending has 50 percent stenosis of the midportion 2 segment of 40-50 percent, FFR at the lowest after adenosine drip was 0.88, nonobstructive disease Left Circumflex mild disease nonobstructive disease Right Coronary Artery has mild disease nonobstructive disease LV Gram was not done, pressure was measured CONCLUSION: 1. 40-50 percent stenosis in the mid LAD, FFR was the lowest 0.88 after adenosine drip 2. Otherwise no significant obstructive disease mild disease nonobstructive disease 3. Normal left ventricular end-diastolic pressure DISCUSSION AND RECOMMENDATION: Medical therapy is recommended no intervention is warranted Anesthesia Type: Conscious Sedation Estimated blood loss (mL): 25 ml Contrast Amount: 56 ml Total Radiation Dose: 762 mGy Post-Procedure Diagnosis Post-operative diagnosis: Coronary artery disease CVA Hypertension Hyperlipidemia ADAIR MANCILLA MD Feb 20, 2020 10:13
[2020-02-20] MEDS ORDERED: PATIENT MAY USE OWN MEDS, ALL PO SCH (10:15)
== END 2020-02-20 16:20 | disposition home or self-care (01) ==
LOC: CATH 07:01 → SDC 10:24 → CATH 16:20
PROVIDERS: ATTEND Internal Medicine Cardiovascular Disease
DX: I25.10 Atherosclerotic heart disease of native coronary artery without angina pectoris (principal); I10 Essential (primary) hypertension; E78.5 Hyperlipidemia, unspecified; I63.9 Cerebral infarction, unspecified; E11.9 Type 2 diabetes mellitus without complications; Z79.82 Long term (current) use of aspirin; Z79.899 Other long term (current) drug therapy; Z87.891 Personal history of nicotine dependence; Z80.9 Family history of malignant neoplasm, unspecified
CPT/HCPCS: 71045; 80053; 85027; 85610; 85730; 87081; 93458; 93571; C1760; C1769; C1887; C1894; 36415

== ENCOUNTER → 2020-10-04 | Outpatient (CLI) | payer MEDICARE, OTHER ==
[~2020-10-04] MED LIST changes: +ASPI-808 PO; +ATOR40TA70 PO; +LISI20TA26 PO; +MULT-1136 PO; +NAPR-1033 PO
[2020-10-04 10:57] LABS: ALANINE AMINOTRANSFERASE 17 U/L (0-55); ALBUMIN 4.5 GM/DL (3.2-4.5); ALKALINE PHOSPHATASE 89 U/L (40-136); BILIRUBIN,TOTAL 0.7 MG/DL (0.1-1.0); BUN/CREATININE RATIO 18; CALCIUM 9.1 MG/DL (8.5-10.1); CARBON DIOXIDE 23 MMOL/L (21-32); CHLORIDE 106 MMOL/L (98-107); CHOLESTEROL 145 MG/DL (< 200); CREATININE SERUM 0.74 MG/DL (0.60-1.30); GFR ESTIMATED > 60; GLUCOSE 133 MG/DL (70-105); HDL CHOLESTEROL 56 MG/DL (40-60); POTASSIUM 3.6 MMOL/L (3.6-5.0); SODIUM 142 MMOL/L (135-145); TOTAL PROTEIN 7.8 GM/DL (6.4-8.2); TRIGLYCERIDES 106 MG/DL (<150); VLDL CHOLESTEROL 21 MG/DL (5-40)
== END ==
LOC: LAB 10:06
PROVIDERS: ATTEND Internal Medicine Cardiovascular Disease
DX: E78.2 Mixed hyperlipidemia (principal)
CPT/HCPCS: 36415; 80053; 80061

== ENCOUNTER 2021-06-01 03:09 | Emergency (ER) | payer MEDICARE, OTHER ==
[~2021-06-01] VITALS: Ht 167 cm; Wt 123.0 kg
[~2021-06-01 03:09] MED LIST changes: -LISI2.5T PO; +LISI2.5T13 PO; -SULF1TAB35 PO; +SULF1TAB38 PO
--- NOTE | 2021-06-01 03:32 | ED General ---
General Chief Complaint: Cardiac/General Problems Stated Complaint: HIGH BLOOD PRESSURE 169/98 Source of Information: Patient Exam Limitations: No Limitations History of Present Illness Date Seen by Provider: Jun 01, 2021 Time Seen by Provider: 03:15 Initial Comments 65yoF with PMH of HTN, HLD, CVA, CAD coming in due to elevated blood pressure. Had an appointment with PCP a couple days ago for follow up due to changing lisinopril to losartan for a cough. At that time her BP was 170's/90's. They told her to continue to check it and monitor her BP at home with plans to follow up in the next couple of weeks. She has felt "off" like her mind is "other places". She says she is not confused and is able to think normally. Took BP again about an hour ago and was 168/98. Denies headache, n/v, cp, SOA, abd pain, weakness, numbness, vision changes, or any other concerns. Allergies and Home Medications Allergies Coded Allergies: No Known Drug Allergies (Unverified , 04/13/19) Patient Home Medication List Home Medication List Reviewed: Yes Aspirin (Aspirin) 325 Mg Tablet, 325 MG PO DAILY, (Reported) Entered as Reported by: DONTE FULTON on 02/20/20739 Atorvastatin Calcium (Atorvastatin Calcium) 40 Mg Tablet, 40 MG PO DAILY, (Reported) Entered as Reported by: DONTE FULTON on 02/20/20739 Lisinopril (Lisinopril) 20 Mg Tablet, 20 MG PO DAILY, (Reported) Entered as Reported by: DONTE FULTON on 02/20/20739 Multivitamin (Multivitamin) 1 Each Tablet, 1 EACH PO DAILY, (Reported) Entered as Reported by: DONTE FULTON on 02/20/20739 Naproxen Sodium (Naproxen Sodium) 220 Mg Tablet, 220 MG PO PRN PRN for PAIN-MILD (1-4), (Reported) Entered as Reported by: DONTE FULTON on 02/20/20739 Review of Systems Review of Systems Constitutional: No fever EENTM: No blurred vision Respiratory: No cough, No short of breath Cardiovascular: No chest pain, No palpitations, No syncope Gastrointestinal: No abdominal pain Genitourinary: no symptoms reported Musculoskeletal: no symptoms reported Skin: no symptoms reported Psychiatric/Neurological: No Symptoms Reported Hematologic/Lymphatic: No Symptoms Reported Immunological/Allergic: no symptoms reported All Other Systems Reviewed Negative Unless Noted: Yes Past Xakobzs-Jkibjg-Cpsiax Hx Patient Social History Tobacco Use?: No Substance use?: No Alcohol Use?: No Pt feels they are or have been: No Immunizations Up To Date Tetanus Booster (TDap): Unknown PED Vaccines UTD: Yes Seasonal Allergies Seasonal Allergies: No Past Medical History Appendectomy, Hysterectomy, Orthopedic Respiratory: No Cardiac: Yes Hypertension Neurological: Yes Headaches /Migraines, 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 Sexually Transmitted Disease: No HIV/AIDS: No Genitourinary: No Kidney Stones Gastrointestinal: No Musculoskeletal: Yes (carpal tunnel surg and trigger release) Endocrine: Yes (diet controlled) Diabetes, Non-Insulin dep HEENT: No Loss of Vision: Denies Hearing Impairment: Denies Cancer: Yes (nonhodgkins) Breast, Lymphoma Did You Recieve Any Treatments: Yes What Type of Treatment Did You: Chemotherapy, Radiation, Surgical Intervention Psychosocial: No Depression Integumentary: No Blood Disorders: No Adverse Reaction/Blood Tranf: No (N/A) Family Medical History Cardiovascular disease G8 BROTHER, Onset:Unknown G8 SISTER, Onset:Unknown FH: breast cancer 19 MOTHER, Onset:Unknown FH: congestive heart failure 19 MOTHER, Onset:Unknown FH: leukemia G8 BROTHER, Onset:Unknown FH: pancreatic cancer 19 MOTHER, Onset:Unknown FH: prostate cancer 19 FATHER, Onset:Unknown G8 BROTHER, Onset:Unknown Hypertension 19 FATHER, Onset:Unknown G8 SISTER, Onset:Unknown Parkinson's disease G8 SISTER, Onset:Unknown Ulcerative colitis G8 BROTHER, Onset:Unknown Cancer, CAD Over 55 Years Old Physical Exam Vital Signs Vital Signs - First Documented 06/01/21 03:15 Temp 36.4 Pulse 93 Resp 16 B/P (MAP) 184/95 (124) Pulse Ox 95 O2 Delivery Room Air Capillary Refill : Height, Weight, BMI Height: 5'6.00" Weight: 258lbs. 0.0oz. [id number]; 43.57 BMI Method:Stated General Appearance: No Apparent Distress, WD/WN Eyes: Bilateral Eye Normal Inspection, Bilateral Eye PERRL, Bilateral Eye EOMI HEENT: PERRL/EOMI, TMs Normal, Pharynx Normal Neck: Full Range of Motion, Normal Inspection, Non Tender, Supple Respiratory: Chest Non Tender, Lungs Clear, Normal Breath Sounds, No Accessory Muscle Use, No Respiratory Distress Cardiovascular: Regular Rate, Rhythm, No Edema, Normal Peripheral Pulses Gastrointestinal: Normal Bowel Sounds, Non Tender, Soft; No Distended, No Guarding Back: Normal Inspection Extremity: Normal Capillary Refill, Normal Inspection, Normal Range of Motion, Non Tender, No Calf Tenderness, No Pedal Edema Neurologic/Psychiatric: Alert, Oriented x3, No Motor/Sensory Deficits, Normal Mood/Affect, manager coding II-XII Norm as Tested; No Abnormal Cerebellar Tests, No Abnormal Gait; Other (normal finger to nose) Skin: Normal Color, Warm/Dry Lymphatic: No Adenopathy Progress/Results/Core Measures Suspected Sepsis SIRS Temperature: Pulse: Respiratory Rate: Blood Pressure / Mean: Results/Orders Vital Signs/I&O 06/01/21 03:15 Temp 36.4 Pulse 93 Resp 16 B/P (MAP) 184/95 (124) Pulse Ox 95 O2 Delivery Room Air Capillary Refill : Progress Note : Progress Note 65-year-old female with above history coming in due to elevated blood pressure. ABCs were intact and vitals were stable on presentation although her blood pressure is elevated to the 170s over 90s systolic. She has no signs of end organ damage. Other vitals are otherwise reassuring. Breathing comfortably. Not having any chest pain. Having normal urinary output. Normal neuro exam at her baseline. We will give her dose of losartan early. I told her to continue to check her pressure a few times a day and write this in a log. Gave her any symptoms that she should return for. Otherwise told her to call PCP on Thursday and discuss either increasing dose, adding another medication, or whether game plan should be. I believe she is stable for discharge. She was sent home with strict return precautions Departure Impression Primary Impression: Hypertension Qualified Codes: I10 - Essential (primary) hypertension Disposition: HOME, SELF-CARE Condition: Stable Departure-Patient Inst. Referrals: [facility] APRN (PCP/Family) Primary Care Physician Patient Instructions: High Blood Pressure in Adults Add. Discharge Instructions: He was seen in the emergency department due to your elevated blood pressure. We recommend you continue to take your medications as prescribed. If around noon your pressure is still elevated >160, take half a pill of your losartan. If it is still 160 at 6pm then take the other half. Continue to check your blood pressure a couple times per day and write a log down of this so that you can show your primary care doctor. If your numbers continue to be elevated they may want to add a medication to your regimen. He had any chest pain, shortness of breath, weakness on one side of your body, numbness on one side of your body, or any other concerns and please come back to the ER for MARIELOS WARD MD Jun 01, 2021 03:32
[2021-06-01] MEDS ORDERED: LOSARTAN 50 MG (COZAAR) TAB PO STA (03:51)
[2021-06-01 04:03] VITALS: BP 146/90
== END 2021-06-01 04:05 | disposition home or self-care (01) ==
LOC: EDUNIT# 03:09 → ER 03:13
DX: I10 Essential (primary) hypertension (principal); E11.9 Type 2 diabetes mellitus without complications; I25.10 Atherosclerotic heart disease of native coronary artery without angina pectoris; E78.5 Hyperlipidemia, unspecified; Z79.82 Long term (current) use of aspirin; Z79.899 Other long term (current) drug therapy
CPT/HCPCS: 99283

== ENCOUNTER → 2021-09-17 | Outpatient (CLI) | payer MEDICARE, OTHER ==
[2021-09-17 12:28] LABS: ALBUMIN 4.3 GM/DL (3.2-4.5); BILIRUBIN,TOTAL 0.7 MG/DL (0.1-1.0); CALCIUM 9.3 MG/DL (8.5-10.1); CREATININE SERUM 0.71 MG/DL (0.60-1.30); POTASSIUM 3.5 MMOL/L (3.6-5.0)
== END ==
LOC: LAB 11:44
PROVIDERS: ATTEND Internal Medicine Cardiovascular Disease
DX: E78.2 Mixed hyperlipidemia (principal); I63.9 Cerebral infarction, unspecified; I25.10 Atherosclerotic heart disease of native coronary artery without angina pectoris; I65.23 Occlusion and stenosis of bilateral carotid arteries; I11.9 Hypertensive heart disease without heart failure
CPT/HCPCS: 36415; 80053; 80061

== ENCOUNTER → 2023-06-10 | Outpatient (CLI) | payer MEDICARE, OTHER | LOC: CARD 10:30 | PROVIDERS: ATTEND Physician Assistant | DX: I34.0 Nonrheumatic mitral (valve) insufficiency (principal); I10 Essential (primary) hypertension | CPT/HCPCS: 93320 ==

== ENCOUNTER → 2023-07-08 | Outpatient (CLI) | payer MEDICARE, OTHER | LOC: CARD 08:08 | PROVIDERS: ATTEND Physician Assistant | DX: I25.10 Atherosclerotic heart disease of native coronary artery without angina pectoris (principal) ==